=== PATIENT | female | born 1990 | race Caucasian/White ===

== ENCOUNTER 2018-04-16 20:42 | Emergency (ER) | payer MEDICAID, SELFPAY ==
[2018-04-16 20:45] VITALS: BP 109/54; PULSE 87; RESP 20; TEMP 36.7; O2SAT 100
--- NOTE | 2018-04-16 20:52 | DI.REPORT_ITS ---
SYMPTOM/DIAGNOSIS: PAIN RIGHT FOOT: No bony or joint abnormality is seen.
--- NOTE | 2018-04-16 21:02 | ED.GENADUL ---
Disposition Clinical Impression: Swelling of right foot Disposition: HOME Condition: Good Additional Instructions: Please follow-up with physical therapy as prescribed. Wear postop shoe for 7-10 days time. Elevate that she would the end of the day to reduce pain and swelling. I apply ice at the end of the day to reduce discomfort as well. Return if you develop a rash, redness, fever, or any other acute concerns Forms: Physical Therapy Referral, Work Release Medical Decision Making - Radiology Data Radiology results: image reviewed - Medical Decision Making 28-year-old female with right medial arch foot pain and swelling over days time. She is afebrile, well-appearing, in otherwise no acute distress. Referred for x-ray which does not reveal acute bony injury on my exam, formal read is pending. We will place in a postop shoe and follow-up with physical therapy for mobilization and stretching. History of Present Illness - General Chief complaint: Cellulitis Stated complaint: RT FOOT INJURY Time Seen by Provider: 04/16/18 20:49 Source: patient, RN notes reviewed Mode of arrival: ambulatory Limitations: no limitations - History of Present Illness Initial comments: Right foot pain: 28-year-old female with gradual onset over days time of achy, moderate, medial right foot pain is nonradiating. It is worse at the end of the day and associated with swelling. There has been no erythema and no fever. No blisters. She denies traumatic injury but states it began after moving her domicile over 2 days time last weekend. - Related Data Venlafaxine [Effexor] 37.5 mg PO DAILY 04/16/18 Allergies Allergy/AdvReac Type Severity Reaction Status Date / Time bupropion HCl Allergy Intermediate Hives Unverified 04/16/18 20:47 [From Wellbutrin] Review of Systems Other: 6 systems reviewed, otherwise neg General Exam - General Limitations: no limitations General appearance: alert, in no apparent distress - Neck Neck exam: Present: normal inspection, full ROM - Respiratory Respiratory exam: Absent: chest wall tenderness - Extremities Exam Extremities exam: Present: tenderness, normal capillary refill, other (Right foot medial arch has mild swelling and tenderness. There is no vesicles. There is no erythema. Range of motion is intact. Sensation intact throughout. 2+ DP bilaterally per) - Neurological Exam Neurological exam: Present: alert, oriented X3 - Psychiatric Psychiatric exam: Present: normal affect, normal mood - Skin Skin exam: Present: warm, dry, intact Course Vital Signs - 24 hr 04/16/18 20:45 Temperature 36.7 C Pulse 87 Respiratory 20 Rate Blood Pressure 109/54 Pulse Oximetry 100
== END 2018-04-16 21:58 | disposition home or self-care (01) ==
PROVIDERS: Emergency Provider Emergency Medicine; PCP Physician Assistant Medical
DX: M79.89 Other specified soft tissue disorders (principal); M79.671 Pain in right foot
CPT/HCPCS: 99283; 73630; L4361

== ENCOUNTER 2018-07-07 21:29 | Emergency (ER) | payer MEDICAID, SELFPAY ==
[2018-07-07 21:34] VITALS: BP 123/85; PULSE 88; RESP 20; TEMP 36.8; O2SAT 100
--- NOTE | 2018-07-07 22:09 | W.ED.GENAD ---
Discharge Plan Disposition Patient Disposition: HOME Condition: Improving Discharge Details Chief Complaint: AUTO TECHNICIAN MECHANIC Clinical Impression: First trimester bleeding Primary Care Provider: Yuan Delgado ED Provider: Miguel Gonzalez Home Meds and New Rx's Prescriptions: Continue venlafaxine 75 MG tablet 37.5 mg PO DAILY RF: 0 progesterone [Progesterone in Oil] 50 mg/mL Oil 1 ml IM HS RF: 0 estradiol 2 mg Tablet 2 mg PO DAILY RF: 0 PNV cmb#95-ferrous fumarate-FA [] 28 mg iron- 800 mcg Tablet 1 tab PO DAILY RF: 0 Discharge Instructions Instructions: First Trimester Vaginal Bleed (ED) Additional Instructions: We have ordered a vaginal ultrasound for tomorrow morning. The ultrasound department will call you to schedule the timing in the morning. Return if you develop abrupt change to abdominal pain or increased vaginal bleeding. Otherwise, return for vaginal ultrasound tomorrow and then follow-up in the emergency department for results Medical Decision Making 28-year-old female presents from home. She is 8 weeks followed by an IVF specialist in [place]. She has had one episode of light vaginal spotting today. She has not had any cramping or abdominal pain. She states she had a confirmed IUP with ultrasound last week. On speculum exam she has a scant amount of blood in the posterior vaginal vault. Patient referred for laboratory testing. Her blood type is A+, hematocrit is 35, chemistries are unremarkable. A bedside transabdominal ultrasound did not offer adequate resolution to visualize the patient's uterus. Unable to obtain a trans-vaginal ultrasound this evening. Patient is stable return in the morning for transvaginal ultrasound to assess for viability. Lab Data Lab results reviewed: Yes I reviewed the patient's lab results. Laboratory Results - last 24 hr 07/07/18 07/07/18 07/07/18 22:22 22:22 22:22 WBC 10.46 RBC 3.84 L Hgb 12.1 Hct 35.8 L MCV 93.2 MCH 31.5 MCHC 33.8 RDW 12.6 Plt Count 280 MPV 10.2 Immature Gran % 0.2 Neutrophils % 57.5 Lymphocytes % 27.7 Monocytes % 7.4 Eosinophils % 6.6 Basophils % 0.6 Absolute Neutrophils 6.02 Absolute Lymphocytes 2.90 Absolute Monocytes 0.77 H Absolute Eosinophils 0.69 Absolute Basophils 0.06 Sodium 137 Potassium 3.8 Chloride 101 Carbon Dioxide 26.0 Anion Gap 10.0 BUN 11 Creatinine 0.55 Estimated GFR/1.73 m2 >= 60.00 Glucose 93 Calcium 9.0 Patient ABO/Rh A Positive Antibody Screen Negative HPI General Mode of arrival: ambulatory. Date/Time Provider Initiated Documentation: 07/07/18 21:40. Limitations to Documentation: no limitations. History of Present Illness 28 year old F presents to the emergency department with the chief complaint of First trimester vaginal bleeding at 8wks, described as mild, and is localized to the pelvis. Patient reports no radiation. Patient started experiencing this hour(s) and it has been now resolved. No relieving factors improve symptom(s), No exacerbating factors reported . Patient notes no other symptoms.. 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 Pleasant, well groomed, interactive. HEAD: Normocephalic, atraumatic ENT: Mucous membranes moist, oropharynx unremarkable, External ear exam unremarkable EYES: PERRL, EOMI NECK: Full ROM, no CRISTINA, no menigismus CHEST/RESP: Nontender, clear to auscultation bilateral, no wheeze/rhonchi/rales CARDIOVASCULAR: RRR, no murmur, rub lety. 2+ Rad pulse bilateral ABDOMEN: Gravid, soft, nontender, no mass. +Bowel sounds GALLERY DIRECTOR: small amount dark blood posterior vaginal vault, Os fingertip, nontender. EXT: Full ROM, no edema, no rash Neuro: Grossly normal neurologic exam, conversant, interactive. Psych: Speech fluent, thoughts congruent, affect normal Course Vital Signs Temperature 36.8 C 07/07/18 21:34 Pulse 88 07/07/18 21:34 Respiratory Rate 20 07/07/18 21:34 Blood Pressure 123/85 07/07/18 21:34 Pulse Oximetry 100 07/07/18 21:34 Temperature 36.8 C 07/07/18 21:34 Temperature Source Temporal Artery Scan 07/07/18 21:34 Pulse 88 07/07/18 21:34 Respiratory Rate 20 07/07/18 21:34 Respiratory Effort Non-Labored 07/07/18 21:34 Blood Pressure 123/85 07/07/18 21:34 Pulse Oximetry 100 07/07/18 21:34 Oxygen Delivery Method Room Air 07/07/18 21:34 Oxygen Flow Rate 0 07/07/18 21:34 Pain Level 0 07/07/18 21:38
--- NOTE | 2018-07-07 22:12 | ED.GENADUL_ITS ---
Discharge Plan Disposition Patient Disposition: HOME Condition: Improving Discharge Details Chief Complaint: PROFESSIONAL SERVICES CONSULTANT Clinical Impression: First trimester bleeding Primary Care Provider: Yuan Delgado ED Provider: Miguel Gonzalez Home Meds and New Rx's Prescriptions: Continue venlafaxine 75 MG tablet 37.5 mg PO DAILY RF: 0 progesterone [Progesterone in Oil] 50 mg/mL Oil 1 ml IM HS RF: 0 estradiol 2 mg Tablet 2 mg PO DAILY RF: 0 PNV cmb#95-ferrous fumarate-FA [] 28 mg iron- 800 mcg Tablet 1 tab PO DAILY RF: 0 Discharge Instructions Instructions: First Trimester Vaginal Bleed (ED) Additional Instructions: We have ordered a vaginal ultrasound for tomorrow morning. The ultrasound department will call you to schedule the timing in the morning. Return if you develop abrupt change to abdominal pain or increased vaginal bleeding. Otherwise, return for vaginal ultrasound tomorrow and then follow-up in the emergency department for results Medical Decision Making 28-year-old female presents from home. She is 8 weeks followed by an IVF specialist in [place]. She has had one episode of light vaginal spotting today. She has not had any cramping or abdominal pain. She states she had a confirmed IUP with ultrasound last week. On speculum exam she has a scant amount of blood in the posterior vaginal vault. Patient referred for laboratory testing. Her blood type is A+, hematocrit is 35 , chemistries are unremarkable. A bedside transabdominal ultrasound did not offer adequate resolution to visualize the patient's uterus. Unable to obtain a trans-vaginal ultrasound this evening. Patient is stable return in the morning for transvaginal ultrasound to assess for viability. Lab Data Lab results reviewed: Yes I reviewed the patient's lab results. Laboratory Results - last 24 hr 07/07/18 07/07/18 07/07/18 22:22 22:22 22:22 WBC 10.46 RBC 3.84 L Hgb 12.1 Hct 35.8 L MCV 93.2 MCH 31.5 MCHC 33.8 RDW 12.6 Plt Count 280 MPV 10.2 Immature Gran % 0.2 Neutrophils % 57.5 Lymphocytes % 27.7 Monocytes % 7.4 Eosinophils % 6.6 Basophils % 0.6 Absolute Neutrophils 6.02 Absolute Lymphocytes 2.90 Absolute Monocytes 0.77 H Absolute Eosinophils 0.69 Absolute Basophils 0.06 Sodium 137 Potassium 3.8 Chloride 101 Carbon Dioxide 26.0 Anion Gap 10.0 BUN 11 Creatinine 0.55 Estimated GFR/1.73 m2 >= 60.00 Glucose 93 Calcium 9.0 Patient ABO/Rh A Positive Antibody Screen Negative HPI General Mode of arrival: ambulatory . Date/Time Provider Initiated Documentation: 07/07/18 21:40 . Limitations to Documentation: no limitations . History of Present Illness 28 year old F presents to the emergency department with the chief complaint of First trimester vaginal bleeding at 8wks, described as mild, and is localized to the pelvis. Patient reports no radiation. Patient started experiencing this hour(s) and it has been now resolved. No relieving factors improve symptom(s), No exacerbating factors reported . Patient notes no other symptoms.. 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 Pleasant, well groomed, interactive. HEAD: Normocephalic, atraumatic ENT: Mucous membranes moist, oropharynx unremarkable, External ear exam unremarkable EYES: PERRL, EOMI NECK: Full ROM, no CRISTINA, no menigismus CHEST/RESP: Nontender, clear to auscultation bilateral, no wheeze/rhonchi/rales CARDIOVASCULAR: RRR, no murmur, rub lety. 2+ Rad pulse bilateral ABDOMEN: Gravid, soft, nontender, no mass. +Bowel sounds NEUROPHYSIOLOGY TECH: small amount dark blood posterior vaginal vault, Os fingertip, nontender. EXT: Full ROM, no edema, no rash Neuro: Grossly normal neurologic exam, conversant, interactive. Psych: Speech fluent, thoughts congruent, affect normal Course Vital Signs Temperature 36.8 C 07/07/18 21:34 Pulse 88 07/07/18 21:34 Respiratory Rate 20 07/07/18 21:34 Blood Pressure 123/85 07/07/18 21:34 Pulse Oximetry 100 07/07/18 21:34 Temperature 36.8 C 07/07/18 21:34 Temperature Source Temporal Artery Scan 07/07/18 21:34 Pulse 88 07/07/18 21:34 Respiratory Rate 20 07/07/18 21:34 Respiratory Effort Non-Labored 07/07/18 21:34 Blood Pressure 123/85 07/07/18 21:34 Pulse Oximetry 100 07/07/18 21:34 Oxygen Delivery Method Room Air 07/07/18 21:34 Oxygen Flow Rate 0 07/07/18 21:34 Pain Level 0 07/07/18 21:38
[2018-07-07 22:34] LABS: Abs Immature Grans 0.02 k/cumm (0.0-0.09); Absolute Basophil Count 0.06 k/cumm (0.0-0.2); Absolute Eosinophil Count 0.69 k/cumm (0.0-0.7); Absolute Monocyte Count 0.77 k/cumm (0.11-0.7); Absolute Neutrophil Count 6.02 k/cumm (1.2-6.7); Basophils % 0.6; Eosinophils % 6.6; HCT 35.8 % (36.0-46.0); HGB 12.1 g/dL (12.0-15.5); Immature Grans % 0.2; Lymphocytes % 27.7; Mean Corp. HGB Concentration 33.8 g/dL (32.0-36.0); Mean Corpuscular Hemoglobin 31.5 pg (27.0-33.0); Mean Corpuscular Volume 93.2 fL (80-95); Mean Platelet Volume 10.2 fL (8.0-11.0); Monocytes % 7.4; Neutrophils % 57.5; Platelet Count 280 x1000/uL (130-400); RBC 3.84 m/cumm (4.00-5.20); RBC Distribution Width 12.6 % (11.7-14.6); White Blood Cell Count 10.46 k/cumm (4.4-10.8)
[2018-07-07 22:45] LABS: BUN 11 mg/dL (7-18); CREATININE 0.55 mg/dL (0.55-1.02); Chloride 101 mmol/L (98-107); Glucose 93 mg/dL (70-100); Potassium 3.8 mmol/L (3.5-5.1); Sodium 137 mmol/L (136-145)
--- NOTE | 2018-07-07 23:04 | NUR.NOTE ---
Nursing Note: This scribe assisted MD with pelvic exam, which went routine.
[2018-07-07 23:57] VITALS: BP 123/85; PULSE 88; RESP 20; TEMP 36.8; O2SAT 100
== END 2018-07-07 23:55 | disposition home or self-care (01) ==
PROVIDERS: Emergency Provider Emergency Medicine; PCP Physician Assistant Medical
DX: O26.851 Spotting complicating pregnancy, first trimester (principal); Z3A.08 8 weeks gestation of pregnancy
CPT/HCPCS: 36415; 80048; 86850; 86900; 86901; 99284; 84702; 85025

== ENCOUNTER 2018-07-08 13:30 | Outpatient (CLI) | payer MEDICAID, SELFPAY ==
--- NOTE | 2018-07-08 11:33 | DI.US_ITS ---
Many abnormalities cannot be diagnosed. A normal exam does not exclude a congenital anomaly. Radiology No. LMP: Exam Date: 07/08/18 [facility] wks days on EDC ([facility]) Confirmed: HISTORY: BLEEDING FIRST TRIMESTER ---- PREDICTED GESTATIONAL AGE NUMBER 7.4 weeks with a range of 6.4 week to 8.4 weeks. 1 Determined by_X__1STUS___LMP___HISTORY Info. pertaining to fetus # PLACENTA PRESENTATION Grade Cephalic___ Anterior___Posterior___ Breech____ Right Left Transverse(head right___ Fundal___Low-lying___Previa___ Transverse(head left___ Varying BIOMETRY AMNIOTIC FLUID BPD: mm weeks Normal HC: mm weeks AC: mm weeks FL: mm weeks AMNIOTIC FLUID INDEX >26 WK CRL: 15 mm 7.6 weeks Cisterna Magna: mm CI: RUQ: LUQ Cerebellum: cm EFW: grams Percentile RLQ: LLQ Total: cms Composite AGE= 7.6 wks EDC by US___02/18/19 BIOPHYSICAL PROFILE ANATOMY IDENTIFIED SCORE 0/2 Heart: 4-Chamber___Rate:BPM__160___ LVOT: RVOT: Amniotic Fluid(>2cms)____ Stomach: Kidneys: Respirations (>30 secs) Bladder: Post. Fossa: Body Flex/Extension 3 vessel cord: Ventricles: cord insertion: Lips:____ Extremity Flex/Extension spinal morphology: Nose: Total Score= Palate: NS=not seen Routine examination. No priors for comparison. There is a single living intrauterine gestation. Estimated sonographic age is 7 weeks 6 days. heart rate is 160 beats per minute. The yoke sac was visualized. There is a 1.6 by 1.5 by 0.6 cm., hypoechoic area adjacent to the gestational sac, most suggestive of a subchorionic hemorrhage. There is a small amount of fluid in the cul-de-sac. Both ovaries were visualized and are grossly unremarkable with normal blood flow. IMPRESSION: 1. Single living intrauterine gestation. Estimated sonographic age is 7 weeks 6 days. 2. Small, 1.6 cm. by 1.5 by 0.6 cm. hypoechoic region adjacent to the gestational sac, most suggestive of a small subchorionic hemorrhage. The findings were discussed with the ER on the date of the examination.
== END 2018-07-08 13:50 ==
PROVIDERS: PCP Physician Assistant Medical; Visit Provider Emergency Medicine
DX: O20.8 Other hemorrhage in early pregnancy (principal)
CPT/HCPCS: 76817

== ENCOUNTER 2018-07-30 10:24 | Outpatient (REF) | payer MEDICAID, SELFPAY ==
[2018-08-02 14:49] LABS: Chlamydia Result Negative; GC Result Negative; Specimen Description CERVIX
== END 2018-07-30 10:44 ==
LOC: LBN 10:24
PROVIDERS: PCP Physician Assistant Medical; Visit Provider Advanced Practice Midwife
DX: Z34.91 Encounter for supervision of normal pregnancy, unspecified, first trimester (principal); Z11.3 Encounter for screening for infections with a predominantly sexual mode of transmission
CPT/HCPCS: 87491; 87591

== ENCOUNTER 2018-07-30 16:31 | Outpatient (REF) | payer MEDICAID, SELFPAY ==
--- NOTE | 2018-07-30 15:45 | PAPFT_PTH ---
PATIENT: Yana Cleaning LOC: BEV U#:[id number] AGE/SX: 28/F ROOM: RE07/30/[address]: Addison Ramirez RN : 1990 BED: DIS: 07/30/2018 SPEC #: [id number] RECD: 07/30/18 18:04 STATUS: WILLIAM RESebastián #: [id number] SARAH: 07/30/18 15:[address]: Addison Ramirez DEPT: [facility] Cytology RECD BY: Jennifer Mmcillan ENTERED: 07/30/18 18:04 SP TYPE: PAPFT OTHR DR: Yuan Delgado Tissues: 1 - CX/ENDOCX FOR PAP SMEARS Procedures: PAP THIN PREP/UVM Screening HPV DNA PROBE Comments:
[2018-07-30 18:35] LABS: *AMPHETAMINES SCREEN URINE Negative (Negative); *BARBITURATES SCREEN URINE Negative (Negative); *BENZODIAZEPINES SCREEN URINE Negative (Negative); Cannabinoids THC Negative (Negative); Cocaine Screen,Urine Negative (Negative); METHADONE URINE SCREEN Negative (Negative); OPIATES URINE SCREEN Negative (Negative)
[2018-07-30 18:37] LABS: Tricyclic Antidepressants Negative (Negative)
[2018-08-06 15:04] LABS: Buprenorphine Negative; Norbuprenorphine Negative
== END 2018-07-30 16:51 ==
LOC: LBN 16:31
PROVIDERS: PCP Physician Assistant Medical; Visit Provider Advanced Practice Midwife
DX: Z12.4 Encounter for screening for malignant neoplasm of cervix (principal); Z11.51 Encounter for screening for human papillomavirus (HPV); Z34.91 Encounter for supervision of normal pregnancy, unspecified, first trimester
CPT/HCPCS: 80307; 88142; 87086; 87624

== ENCOUNTER 2018-08-14 12:36 | Emergency (ER) | payer MEDICAID, SELFPAY ==
[2018-08-14 12:40] VITALS: BP 129/70; PULSE 114; RESP 16; TEMP 36.8; O2SAT 98
--- NOTE | 2018-08-14 13:40 | W.ED.GENAD ---
Discharge Plan Disposition Patient Disposition: HOME Condition: Stable Discharge Details Chief Complaint: Sorethroat Clinical Impression: URI (upper respiratory infection) Reason For Visit: ? strep Primary Care Provider: Yuan Delgado ED Provider: Malcolm Reaves Home Meds and New Rx's Prescriptions: Continue PNV cmb#95-ferrous fumarate-FA [] 28 mg iron- 800 mcg Tablet 1 tab PO DAILY RF: 0 Discontinued venlafaxine 75 MG tablet 37.5 mg PO DAILY RF: 0 Discharge Instructions Instructions: Upper Respiratory Infection (ED) Additional Instructions: Continue to stay well-hydrated and get plenty of rest during illness. You may use approved cold relief medications and if not improving over the next week follow-up with your primary care provider for reassessment. For any new or significant worsening of symptoms including any difficulty breathing, inability to swallow, high fevers or severe pain return immediately to the emergency department for reassessment. Referrals: Yuan Delagdo PA [Primary Care Provider] - Discharge Data Discharge Date/Time-TO BE ENTERED AT DEPARTURE: 08/14/18 13:47 Medical Decision Making Patient presenting to the emergency department after chief complaint of sore throat that started the last couple days but that she has had nasal congestion, runny nose, and mild cough for the past week. Patient denies any fever chills, inability to swallow, rash. Physical exam shows no difficulty speaking, no drooling, no trismus, mildly erythematous bilateral tonsils with mild hypertrophy and nasal congestion otherwise unremarkable examination. staff internist office based only initiated protocol for rapid strep testing which was negative. Patient symptoms are suggestive of viral illness and she was encouraged to safe, such acetaminophen, [id number] therapy for treatment and to follow-up with primary care provider as needed for reassessment or to return for any new or worsening symptoms. After discussion of diagnosis and plan of care patient has no further needs, questions, or concerns and states clear understanding to return to the emergency department for any worsening symptoms. HPI General Mode of arrival: ambulatory. Date/Time Provider Initiated Documentation: 08/14/18 12:42. Limitations to Documentation: no limitations. Information obtained by: patient and RN notes reviewed. History of Present Illness 28 year old F presents to the emergency department with the chief complaint of Sore throat, described as moderate, with intensity rated at 6. Quality is described as aching, and is localized to the mouth (Sort throat). Patient reports no radiation. Patient started experiencing this day(s) (2) and it has been constant. No relieving factors improve symptom(s), No exacerbating factors reported . Patient notes cough. Patient did receive the following treatments prior to arrival, none Related Data Home Medications Medication Instructions Recorded Confirmed PNV cmb#95-ferrous fumarate-FA 1 tab PO DAILY 07/07/18 07/30/18 [] Allergies Allergy/AdvReac Type Severity Reaction Status Date / Time bupropion HCl Allergy Intermediate Hives Unverified 07/07/18 21:36 [From Wellbutrin] General Stated Complaint: Sorethroat KYLAH: 4 Review of Systems Constitutional Denies chills, Denies fever(s), Denies headache(s) and Reports malaise ENT Denies dysphagia, Denies headache(s), Denies lip swelling, Reports nasal congestion, Denies throat swelling and Denies tongue swelling Cardiovascular Denies chest pain Respiratory Denies chest congestion and Reports cough Gastrointestinal Denies dysphagia Neurologic Denies headache(s) Allergic/Immunologic Denies lip swelling, Denies throat swelling and Denies tongue swelling PFSH Anxiety Family History Grandmother Diabetes Ligation of fallopian tube (06/07/16) excision of keloid on chest Family History Grandmother Diabetes Medical History Anxiety Social History Smoking/Tobacco Use Status: Never alcohol intake: former (stopped in march only.) substance use type: does not use Surgical History Ligation of fallopian tube (06/07/16) excision of keloid on chest Social History Smoking/Tobacco Use Status: Never alcohol intake: former (stopped in march only.) substance use type: does not use Female Reproductive History Menstrual Age of Menarche: 11 Duration of menses: 3-5 days control method: permanent sterilization (ivf for this .) Exam Const General: cooperative, healthy appearing, comfortable, no acute distress and not ill appearing Orientation: alert, awake and oriented x3 HENMT Head: normal to inspection and normocephalic Ears: hearing grossly normal bilaterally, external ears normal, TM's normal bilaterally and mastoids normal General nose exam: external nose normal and nares normal Face and sinus: normal facial exam and sinuses nontender Mouth: oral mucosae normal, lip normal, tongue normal, no audible dysphonia, no drooling and no trismus Throat: uvula midline, abnormal tonsil bilaterally erythema and hypertrophy 1+ and no peritonsillar masses Neck Neck: normal visual inspection, full ROM and no lymphadenopathy Resp Effort & Inspection: normal respiratory effort, able to speak in complete sentences and no stridor Auscultation: clear to auscultation bilaterally Cardio Rate: regular rate Rhythm: regular rhythm Heart Sounds: S1 normal and S2 normal Skin General skin exam: no rashes or lesions noted Course Vital Signs Temperature 36.8 C 08/14/18 12:40 Pulse 114 H 08/14/18 12:40 Respiratory Rate 16 08/14/18 12:40 Blood Pressure 129/70 08/14/18 12:40 Pulse Oximetry 98 08/14/18 12:40 Temperature 36.8 C 08/14/18 12:40 Pulse 114 H 08/14/18 12:40 Respiratory Rate 16 08/14/18 12:40 Respiratory Effort 08/14/18 12:43 Blood Pressure 129/70 08/14/18 12:40 Blood Pressure Position Sitting 08/14/18 12:40 Pulse Oximetry 98 08/14/18 12:40 Oxygen Delivery Method Room Air 08/14/18 12:40 Oxygen Flow Rate 0 08/14/18 12:40 Lab/Test Results Lab/Test Results: POC Strep Test-JAMES(Rapid) Start: 08/14/18 12:45 Freq: .Rapid Strep Test Status: Active Protocol: Document 08/14/18 13:02 MM (Rec: 08/14/18 13:02 MM [facility]-[id number]) Strep test-JAMES(Rapid)-POC POC-Strep test-JAMES (Rapid) Negative POC-Strep test-JAMES (Rapid) Negative
--- NOTE | 2018-08-14 13:45 | ED.GENADUL_ITS ---
Discharge Plan Disposition Patient Disposition: HOME Condition: Stable Discharge Details Chief Complaint: Sorethroat Clinical Impression: URI (upper respiratory infection) Reason For Visit: ? strep Primary Care Provider: Yuan Delgado ED Provider: Malcolm Reaves Home Meds and New Rx's Prescriptions: Continue PNV cmb#95-ferrous fumarate-FA [] 28 mg iron- 800 mcg Tablet 1 tab PO DAILY RF: 0 Discontinued venlafaxine 75 MG tablet 37.5 mg PO DAILY RF: 0 Discharge Instructions Instructions: Upper Respiratory Infection (ED) Additional Instructions: Continue to stay well-hydrated and get plenty of rest during illness. You may use approved cold relief medications and if not improving over the next week follow-up with your primary care provider for reassessment. For any new or significant worsening of symptoms including any difficulty breathing, inability to swallow, high fevers or severe pain return immediately to the emergency department for reassessment. Referrals: Yuan Delgado PA [Primary Care Provider] - Discharge Data Discharge Date/Time-TO BE ENTERED AT DEPARTURE: 08/14/18 13:47 Medical Decision Making Patient presenting to the emergency department after chief complaint of sore throat that started the last couple days but that she has had nasal congestion, runny nose, and mild cough for the past week. Patient denies any fever chills, inability to swallow, rash. Physical exam shows no difficulty speaking, no drooling, no trismus, mildly erythematous bilateral tonsils with mild hypertrophy and nasal congestion otherwise unremarkable examination. staff appraiser initiated protocol for rapid strep testing which was negative. Patient symptoms are suggestive of viral illness and she was encouraged to safe, such acetaminophen, [id number] therapy for treatment and to follow- up with primary care provider as needed for reassessment or to return for any new or worsening symptoms. After discussion of diagnosis and plan of care patient has no further needs, questions, or concerns and states clear understanding to return to the emergency department for any worsening symptoms. HPI General Mode of arrival: ambulatory . Date/Time Provider Initiated Documentation: 08/14/18 12:42 . Limitations to Documentation: no limitations . Information obtained by: patient and RN notes reviewed . History of Present Illness 28 year old F presents to the emergency department with the chief complaint of Sore throat, described as moderate, with intensity rated at 6. Quality is described as aching, and is localized to the mouth (Sort throat). Patient reports no radiation. Patient started experiencing this day(s) (2) and it has been constant. No relieving factors improve symptom(s), No exacerbating factors reported . Patient notes cough. Patient did receive the following treatments prior to arrival, none Related Data Home Medications Medication Instructions Recorded Confirmed PNV cmb#95-ferrous fumarate-FA 1 tab PO DAILY 07/07/18 07/30/18 [] Allergies Allergy/AdvReac Type Severity Reaction Status Date / Time bupropion HCl Allergy Intermediate Hives Unverified 07/07/18 21:36 [From Wellbutrin] General Stated Complaint: Sorethroat KYLAH: 4 Review of Systems Constitutional Denies chills, Denies fever(s), Denies headache(s) and Reports malaise ENT Denies dysphagia, Denies headache(s), Denies lip swelling, Reports nasal congestion, Denies throat swelling and Denies tongue swelling Cardiovascular Denies chest pain Respiratory Denies chest congestion and Reports cough Gastrointestinal Denies dysphagia Neurologic Denies headache(s) Allergic/Immunologic Denies lip swelling, Denies throat swelling and Denies tongue swelling PFSH Anxiety Family History Grandmother Diabetes Ligation of fallopian tube (06/07/16) excision of keloid on chest Family History Grandmother Diabetes Medical History Anxiety Social History Smoking/Tobacco Use Status: Never alcohol intake: former (stopped in march only.) substance use type: does not use Surgical History Ligation of fallopian tube (06/07/16) excision of keloid on chest Social History Smoking/Tobacco Use Status: Never alcohol intake: former (stopped in march only.) substance use type: does not use Female Reproductive History Menstrual Age of Menarche: 11 Duration of menses: 3-5 days control method: permanent sterilization (ivf for this .) Exam Const General: cooperative, healthy appearing, comfortable, no acute distress and not ill appearing Orientation: alert, awake and oriented x3 HENMT Head: normal to inspection and normocephalic Ears: hearing grossly normal bilaterally, external ears normal, TM's normal bilaterally and mastoids normal General nose exam: external nose normal and nares normal Face and sinus: normal facial exam and sinuses nontender Mouth: oral mucosae normal, lip normal, tongue normal, no audible dysphonia, no drooling and no trismus Throat: uvula midline, abnormal tonsil bilaterally erythema and hypertrophy 1+ and no peritonsillar masses Neck Neck: normal visual inspection, full ROM and no lymphadenopathy Resp Effort & Inspection: normal respiratory effort, able to speak in complete sentences and no stridor Auscultation: clear to auscultation bilaterally Cardio Rate: regular rate Rhythm: regular rhythm Heart Sounds: S1 normal and S2 normal Skin General skin exam: no rashes or lesions noted Course Vital Signs Temperature 36.8 C 08/14/18 12:40 Pulse 114 H 08/14/18 12:40 Respiratory Rate 16 08/14/18 12:40 Blood Pressure 129/70 08/14/18 12:40 Pulse Oximetry 98 08/14/18 12:40 Temperature 36.8 C 08/14/18 12:40 Pulse 114 H 08/14/18 12:40 Respiratory Rate 16 08/14/18 12:40 Respiratory Effort 08/14/18 12:43 Blood Pressure 129/70 08/14/18 12:40 Blood Pressure Position Sitting 08/14/18 12:40 Pulse Oximetry 98 08/14/18 12:40 Oxygen Delivery Method Room Air 08/14/18 12:40 Oxygen Flow Rate 0 08/14/18 12:40 Lab/Test Results Lab/Test Results: POC Strep Test-JAMES(Rapid) Start: 08/14/18 12: 45 Freq: .Rapid Strep Test Status: Active Protocol: Document 08/14/18 13:02 MM (Rec: 08/14/18 13:02 MM [facility]-[id number]) Strep test-JAMES(Rapid)-POC POC-Strep test-JAMES (Rapid) Negative POC-Strep test-JAMES (Rapid) Negative
== END 2018-08-14 13:47 | disposition home or self-care (01) ==
LOC: ER 13:57
PROVIDERS: Emergency Provider Nurse Practitioner Family; PCP Physician Assistant Medical
DX: J06.9 Acute upper respiratory infection, unspecified (principal); Z33.1 Pregnant state, incidental; Z3A.13 13 weeks gestation of pregnancy
CPT/HCPCS: 99282; 87081

== ENCOUNTER 2018-08-27 08:13 | Outpatient (CLI) | payer MEDICAID, SELFPAY ==
[2018-08-27 09:16] LABS: Glucose,1 Hr (Glucola) 112 mg/dL (80-140)
== END 2018-08-27 08:33 ==
PROVIDERS: Advanced Practice Midwife; PCP Physician Assistant Medical; Visit Provider Advanced Practice Midwife
DX: Z13.1 Encounter for screening for diabetes mellitus (principal); Z68.30 Body mass index [BMI] 30.0-30.9, adult
CPT/HCPCS: 36415; 82950

== ENCOUNTER 2018-08-27 18:35 | Emergency (ER) | payer MEDICAID, SELFPAY ==
[2018-08-27 18:41] VITALS: BP 130/76; PULSE 127; RESP 18; TEMP 36.7; O2SAT 99
--- NOTE | 2018-08-27 18:55 | W.ED.GENAD ---
Discharge Plan Disposition Patient Disposition: HOME Condition: Stable Discharge Details Chief Complaint: SUPERVISOR CHEMICAL Clinical Impression: Vaginal bleeding during Primary Care Provider: Yuan Delgado ED Provider: David Tan Home Meds and New Rx's Prescriptions: Continued PNV cmb#95-ferrous fumarate-FA [] 28 mg iron- 800 mcg Tablet 1 tab PO DAILY RF: 0 Discharge Instructions Additional Instructions: You had a live intrauterine on your ultrasound today You should be on pelvic rest and try not to overly exert yourself follow up with your community health director as scheduled tomorrow if you have difficulty breathing, severe weakness or chest pain/pressure or worsening abdominal pain return to the emergency department Medical Decision Making 28 yo female currently 15 weeks comes in with chief complaint of vaginal bleeding and lower abdominal cramping that started tonight. Denies any severe pain, fevers, discharge. Is a positive on lab review. Has live IUP on bedside u/s with fhr of 140 and fetus is moving. HD stable, HR 103 on my exam. Will discuss with her midwifery team when they would like her to f/u with them, suspect threatened pt states she has an appt scheduled already tomorrow. I spoke with Charla Estrada, who is on for the midwifes who advised the pt be on pelvic rest and f/u as scheduled tomorrow Differential Diagnosis implantation bleeding, threatened HPI General Mode of arrival: ambulatory. Date/Time Provider Initiated Documentation: 08/27/18 18:46. Limitations to Documentation: no limitations. Information obtained by: patient. History of Present Illness 28 year old F presents to the emergency department with the chief complaint of vaginal bleeding, described as mild, Patient reports no radiation. No relieving factors improve symptom(s), No exacerbating factors reported . Patient did receive the following treatments prior to arrival, none Related Data Home Medications Medication Instructions Recorded Confirmed PNV cmb#95-ferrous fumarate-FA 1 tab PO DAILY 07/07/18 08/27/18 [] Allergies Allergy/AdvReac Type Severity Reaction Status Date / Time bupropion HCl Allergy Intermediate Hives Unverified 08/27/18 18:44 [From Wellbutrin] General Stated Complaint: SUPERVISOR CHEMICAL KYLAH: 3 Review of Systems Review of Systems All systems reviewed & are unremarkable except as noted in HPI and below Constitutional Denies chills, Denies fever(s) and Denies weakness Cardiovascular Denies chest pain Gastrointestinal Denies abdominal pain, Denies nausea and Denies vomiting Neurologic Denies weakness Allergic/Immunologic Denies urticaria PFSH Medical History Anxiety Surgical History Ligation of fallopian tube (06/07/16) excision of keloid on chest Social History Smoking/Tobacco Use Status: Never alcohol intake: former (stopped in march only.) substance use type: does not use Female Reproductive History Menstrual Age of Menarche: 11 Duration of menses: 3-5 days control method: permanent sterilization (ivf for this .) History History 5 Para 3 Hx # Term Pregnancies 3 Multiple births 0 Hx # Pregnancies 0 Ectopic pregnancies 0 AB induced 0 Hx Number of Living Children 3 AB spontaneous 1 Exam Const General: no acute distress Orientation: alert HENNH Head: normal to inspection Ears: external ears normal General nose exam: external nose normal Mouth: moist mucous membranes Eyes General: appearance normal, both eyes and all related structures Neck Neck: normal visual inspection Resp Effort & Inspection: normal respiratory effort and able to speak in complete sentences Cardio Rate: regular rate Skin General skin exam: no rashes or lesions noted Neuro General: alert and oriented x3 Extrem General: normal to inspection Psych Mental Status: mental status grossly normal Course Vital Signs Temperature 36.7 C 08/27/18 18:41 Pulse 127 H 18 18:41 Respiratory Rate 18 18 18:41 Blood Pressure 130/76 1818 18:41 Pulse Oximetry 99 18 18:41 Temperature 36.7 C 18 18:41 Temperature Source Skin 1818 18:41 Pulse 127 H 1818 18:41 Respiratory Rate 18 18 18:41 Respiratory Effort 1818 18:44 Blood Pressure 130/76 1818 18:41 Blood Pressure Position Sitting 121818 18:41 Pulse Oximetry 99 1818 18:41 Oxygen Delivery Method Room Air 08/27/18 18:41 Oxygen Flow Rate 0 12/18/18 18:41 Pain Level 3 08/27/18 18:41
--- NOTE | 2018-08-27 18:59 | ED.GENADUL_ITS ---
Discharge Plan Disposition Patient Disposition: HOME Condition: Stable Discharge Details Chief Complaint: GROCERY SPECIALIST Clinical Impression: Vaginal bleeding during Primary Care Provider: Yuan Delgado ED Provider: David Tan Home Meds and New Rx's Prescriptions: Continued PNV cmb#95-ferrous fumarate-FA [] 28 mg iron- 800 mcg Tablet 1 tab PO DAILY RF: 0 Discharge Instructions Additional Instructions: You had a live intrauterine on your ultrasound today You should be on pelvic rest and try not to overly exert yourself follow up with your grocery bagger as scheduled tomorrow if you have difficulty breathing, severe weakness or chest pain/pressure or worsening abdominal pain return to the emergency department Medical Decision Making 28 yo female currently 15 weeks comes in with chief complaint of vaginal bleeding and lower abdominal cramping that started tonight. Denies any severe pain, fevers, discharge. Is a positive on lab review. Has live IUP on bedside u/s with fhr of 140 and fetus is moving. HD stable, HR 103 on my exam. Will discuss with her midwifery team when they would like her to f/u with them, suspect threatened pt states she has an appt scheduled already tomorrow. I spoke with Charla Estrada, who is on for the midwifes who advised the pt be on pelvic rest and f/u as scheduled tomorrow Differential Diagnosis implantation bleeding, threatened HPI General Mode of arrival: ambulatory . Date/Time Provider Initiated Documentation: 08/27/18 18:46 . Limitations to Documentation: no limitations . Information obtained by: patient . History of Present Illness 28 year old F presents to the emergency department with the chief complaint of vaginal bleeding, described as mild, Patient reports no radiation. No relieving factors improve symptom(s), No exacerbating factors reported . Patient did receive the following treatments prior to arrival, none Related Data Home Medications Medication Instructions Recorded Confirmed PNV cmb#95-ferrous fumarate-FA 1 tab PO DAILY 07/07/18 08/27/18 [] Allergies Allergy/AdvReac Type Severity Reaction Status Date / Time bupropion HCl Allergy Intermediate Hives Unverified 08/27/18 18:44 [From Wellbutrin] General Stated Complaint: GROCERY SPECIALIST KYLAH: 3 Review of Systems Review of Systems All systems reviewed & are unremarkable except as noted in HPI and below Constitutional Denies chills, Denies fever(s) and Denies weakness Cardiovascular Denies chest pain Gastrointestinal Denies abdominal pain, Denies nausea and Denies vomiting Neurologic Denies weakness Allergic/Immunologic Denies urticaria PFSH Medical History Anxiety Surgical History Ligation of fallopian tube (06/07/16) excision of keloid on chest Social History Smoking/Tobacco Use Status: Never alcohol intake: former (stopped in march only.) substance use type: does not use Female Reproductive History Menstrual Age of Menarche: 11 Duration of menses: 3-5 days control method: permanent sterilization (ivf for this .) History History 5 Para 3 Hx # Term Pregnancies 3 Multiple births 0 Hx # Pregnancies 0 Ectopic pregnancies 0 AB induced 0 Hx Number of Living Children 3 AB spontaneous 1 Exam Const General: no acute distress Orientation: alert HENOH Head: normal to inspection Ears: external ears normal General nose exam: external nose normal Mouth: moist mucous membranes Eyes General: appearance normal, both eyes and all related structures Neck Neck: normal visual inspection Resp Effort & Inspection: normal respiratory effort and able to speak in complete sentences Cardio Rate: regular rate Skin General skin exam: no rashes or lesions noted Neuro General: alert and oriented x3 Extrem General: normal to inspection Psych Mental Status: mental status grossly normal Course Vital Signs Temperature 36.7 C 08/27/18 18:41 Pulse 127 H 18 18:41 Respiratory Rate 18 18 18:41 Blood Pressure 130/76 1818 18:41 Pulse Oximetry 99 18 18:41 Temperature 36.7 C 18 18:41 Temperature Source Skin 1818 18:41 Pulse 127 H 1818 18:41 Respiratory Rate 18 18 18:41 Respiratory Effort 1818 18:44 Blood Pressure 130/76 1818 18:41 Blood Pressure Position Sitting 121818 18:41 Pulse Oximetry 99 1818 18:41 Oxygen Delivery Method Room Air 08/27/18 18:41 Oxygen Flow Rate 0 12/18/18 18:41 Pain Level 3 08/27/18 18:41
== END 2018-08-27 19:34 | disposition home or self-care (01) ==
PROVIDERS: Emergency Provider Emergency Medicine; PCP Physician Assistant Medical
DX: O20.9 Hemorrhage in early pregnancy, unspecified (principal); R10.9 Unspecified abdominal pain; Z3A.15 15 weeks gestation of pregnancy
CPT/HCPCS: 99282

== ENCOUNTER 2018-08-28 10:22 | Outpatient (CLI) | payer MEDICAID, SELFPAY ==
--- NOTE | 2018-08-28 08:45 | DI.US_ITS ---
SYMPTOMS/DIAGNOSIS: HEMORRHAGE IN EARLY , O20.9, ? PREVIA, ? ABRUPTION OB ULTRASOUND: Many abnormalities cannot be diagnosed. A normal exam does not exclude a congenital anomaly. Radiology No. [id number] LMP: Exam Date: 08/28/18 [facility] wks days on EDC ([facility]) 02/18/19 Confirmed: HISTORY: PREDICTED GESTATIONAL AGE NUMBER 15+1 weeks with a range of 14+1 weeks to 16+1 weeks. 1 Determined by___1STUS___LMP___HISTORY PLACENTA PRESENTATION Grade 0-I Cephalic___ Anterior___Posterior___ Breech____ Right Left Transverse(head right___ Fundal___Low-lying___Previa___ Transverse(head left___ Varying___X___ BIOMETRY AMNIOTIC FLUID BPD: 30 mm 15+4 weeks Normal HC: 113 mm 15+3 weeks AC: 92 mm 15+2 weeks FL: 17 mm 15+1 weeks AMNIOTIC FLUID INDEX >26 WK CRL: mm weeks Cisterna Magna: mm CI: RUQ: LUQ Cerebellum: cm EFW: grams Percentile RLQ: LLQ Total: cms Composite AGE= 15+3 wks EDC by US: 02/16/19 BIOPHYSICAL PROFILE ANATOMY IDENTIFIED SCORE 0/2 Heart: 4-Chamber___Rate:BPM 141 LVOT: RVOT: Amniotic Fluid(>2cms)____ Stomach: Kidneys: Respirations (>30 secs) Bladder: Post. Fossa: Body Flex/Extension 3 vessel cord: Ventricles: cord insertion: Lips:____ Extremity Flex/Extension spinal morphology: Nose: Total Score= Palate: NS=not seen COMMENTS: The examination was carried out according to the usual protocol. A viable intrauterine hoang is demonstrated in varying positions. The measurements suggest a gestational age of 15 weeks and 3 days. The amniotic fluid index is normal. An anterior placenta is apparent. There is a low-lying placenta, but no evidence of a ella previa. There is thickening and heterogeneity of the placenta with cystic and solid regions. There is nothing to suggest a retroplacental hemorrhage or placental abruption. The findings are suspicious for regions of hemorrhage. The possibility of multiple masses to be considered as well. The findings are certainly suspicious for trophoblastic disease. Further evaluation with an MRI should be considered.
== END 2018-08-28 10:42 ==
PROVIDERS: PCP Physician Assistant Medical; Visit Provider Advanced Practice Midwife
DX: O20.8 Other hemorrhage in early pregnancy (principal); Z36.89 Encounter for other specified antenatal screening
CPT/HCPCS: 76816

== ENCOUNTER 2018-08-28 11:16 | Observation (INO) | payer MEDICAID, SELFPAY ==
[2018-08-28 11:57] LABS: HGB 11.2 g/dL (12.0-15.5); Mean Corp. HGB Concentration 32.9 g/dL (32.0-36.0); Mean Corpuscular Hemoglobin 30.8 pg (27.0-33.0); Mean Corpuscular Volume 93.4 fL (80-95); Mean Platelet Volume 9.7 fL (8.0-11.0); Platelet Count 284 x1000/uL (130-400); RBC 3.64 m/cumm (4.00-5.20); RBC Distribution Width 12.8 % (11.7-14.6); White Blood Cell Count 9.89 k/cumm (4.4-10.8)
--- NOTE | 2018-08-28 11:57 | W.OBCONSULT ---
Date of service: 08/28/18 Time of Service: 12:02 Assessment and Plan (1) First trimester bleeding: Current visit: Yes Status: Acute Plan at this time is to obtain a quantitative hCG type and screen and observe the patient overnight with normal activities of daily living. She has been counseled that this may be the beginnings of a spontaneous however there is no plan for intervention at this time if her blood count is stable. Patient agreeable to the plan. History of Present Illness Chief Complaint: 1. Uterine bleeding at 15 weeks and 1 day estimated gestational age Narrative: Ms. Cleaning is 28 year old 1 3 female who is a patient of the [facility] service who I was asked to consult on regarding uterine bleeding at 15 weeks 1 day estimated gestational age. Patient had presented to the emergency department at [facility] on 08/27/2018 with a gush of bright red blood from her vagina upon arrival home from work. She denied any trauma any uterine contractions. At the time of the presentation to the emergency department of bedside ultrasound was performed and showed heart tones. Upon discharge in the emergency department she returned home and had 2 more episodes of bright red blood from her vagina and upon awaking this morning had a repeat episode. A pelvic ultrasound was performed this morning and the diagnostic imaging department that showed a viable intrauterine and a abnormal appearing placental mass in the lower uterine segment. The cervix was not funneled there was evidence of blood within the cervical canal. Is unclear if the mass was subchorionic. Radiology was unsure of a diagnosis. I met with the patient and reviewed the findings and discuss possibilities of a threatened miscarriage versus a subchorionic bleed and recommended observation for the next 24 hours. I recommended that she not restrict her activities in order to see what if any bleeding is present with normal ADLs. She is agreeable to the plan. 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 Her estimated date of delivery is 02/18/2019 by a dating ultrasound performed on 07/17/2018. She presented for care and had one visit prior to this bleeding episode. 07/08/2018 she was seen in the emergency department at approximately 7 weeks estimated gestational age with first trimester bleeding secondary to a small subchorionic bleed. That resolved and she had no further bleeding episodes until this most recent event. Rh+, antibody negative POB Hx 3 vaginal deliveries by a previous partner. No complications She had interval bilateral salpingectomy in 2016 after third . She then her and met her current partner 2017. 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 reproductive medicine. Consults Consult date: 08/28/18 Review of Systems Constitutional Reports as per HPI Cardiovascular Reports system reviewed and no additional complaints, except as docu Genitourinary Reports abnormal vaginal bleeding (No uterine cramping associated with bleeding) Musculoskeletal Reports system reviewed and no additional complaints, except as docu Psychiatric Reports anxiety (Regarding the episode of bleeding and risk of miscarriage) [facility] Social History Smoking/Tobacco Use Status: Never alcohol intake: former (stopped in march only.) substance use type: does not use Female Reproductive History Menstrual Age of Menarche: 11 Duration of menses: 3-5 days control method: permanent sterilization (ivf for this .) History History 5 Para 3 Hx # Term Pregnancies 3 Multiple births 0 Hx # Pregnancies 0 Ectopic pregnancies 0 AB induced 0 Hx Number of Living Children 3 AB spontaneous 1 Exam Const General: in distress (Tearful after the most recent OB ultrasound) mild Nutritional Appearance: overweight Resp Effort & Inspection: normal respiratory effort GI Palpation: soft, no hepatosplenomegaly and other Other: Uterus is gravid nontender to palpation External Female Exam: external appearance normal Speculum Exam - Cervix: closed cervix and abnormal cervical discharge (Bright red blood and mucus noted on speculum exam by CNM.) Bimanual Exam- Vagina & Uterus: other (Exam deferred by myself since it had previously been performed earlier this) Results Labs : 08/28/18 11:45
[2018-08-28] MEDS: Acetaminophen 325 MG TAB 650 MG PO (15:49)
--- NOTE | 2018-08-28 20:02 | W.PM.PROGNOT ---
Date of Service Date of service: 08/28/18 Time of Service: 20:02 Assessment and Plan (1) First trimester bleeding: Current visit: Yes Status: Acute Her bleeding has subsided since this morning. The plan is to continue to observe overnight. I recommended discharge in the morning with a decreased work schedule to be arranged with her employer. Patient is agreeable to the plan. Subjective Patient reports: no new complaints Interval history since last seen: Patient has been resting with BiPAP images since admission. She denies any gush since earlier this morning. She has had a small amount of bright red blood while wiping or on her underclothes during the day. The bleeding appears to be provoked by activity. She has ambulated in the room in addition to bathroom privileges. She is agreeable to remaining hospitalized overnight for patient reassurance and in the event of another bleeding episode. Exam Const General: comfortable and no acute distress Orientation: alert, awake and oriented x3 Resp Effort & Inspection: normal respiratory effort GI Inspection: normal to inspection Palpation: soft and other Other: Gravid. No focal uterine tenderness with palpation. General: deferred Skin General skin exam: no rashes or lesions noted and other (Multiple skin tattoos) Objective Objective Clinical Data: Abnormal lab results 08/28/18 08/28/18 Range/Units 11:45 11:45 RBC 3.64 L (4.00-5.20) m/cumm Hgb 11.2 L (12.0-15.5) g/dL Hct 34.0 L (36.0-46.0) % Beta HCG, Quant 24551 H (1-3) mIU/mL Vital Signs Pain Level 5 08/28/18 15:49 Laboratory Results WBC 9.89 k/cumm (4.4-10.8) 08/28/18 11:45 RBC 3.64 m/cumm (4.00-5.20) L 08/28/18 11:45 Hgb 11.2 g/dL (12.0-15.5) L 08/28/18 11:45 Hct 34.0 % (36.0-46.0) L 08/28/18 11:45 MCV 93.4 fL (80-95) 08/28/18 11:45 MCH 30.8 pg (27.0-33.0) 08/28/18 11:45 MCHC 32.9 g/dL (32.0-36.0) 08/28/18 11:45 RDW 12.8 % (11.7-14.6) 08/28/18 11:45 Plt Count 284 x1000/uL (130-400) 08/28/18 11:45 MPV 9.7 fL (8.0-11.0) 08/28/18 11:45 Beta HCG, Quant 52927 mIU/mL (1-3) H 08/28/18 11:45 Patient ABO/Rh A Positive 08/28/18 11:45 Antibody Screen Negative 08/28/18 11:45
--- NOTE | 2018-08-28 20:07 | PGE_ITS ---
Date of Service Date of service: 08/28/18 Time of Service: 20:02 Assessment and Plan (1) First trimester bleeding: Current visit: Yes Status: Acute Her bleeding has subsided since this morning. The plan is to continue to observe overnight. I recommended discharge in the morning with a decreased work schedule to be arranged with her employer. Patient is agreeable to the plan. Subjective Patient reports: no new complaints Interval history since last seen: Patient has been resting with BiPAP images since admission. She denies any gush since earlier this morning. She has had a small amount of bright red blood while wiping or on her underclothes during the day. The bleeding appears to be provoked by activity. She has ambulated in the room in addition to bathroom privileges. She is agreeable to remaining hospitalized overnight for patient reassurance and in the event of another bleeding episode. Exam Const General: comfortable and no acute distress Orientation: alert, awake and oriented x3 Resp Effort & Inspection: normal respiratory effort GI Inspection: normal to inspection Palpation: soft and other Other: Gravid. No focal uterine tenderness with palpation. General: deferred Skin General skin exam: no rashes or lesions noted and other (Multiple skin tattoos) Objective Objective Clinical Data: Abnormal lab results 08/28/18 08/28/18 Range/Units 11:45 11:45 RBC 3.64 L (4.00-5.20) m/cumm Hgb 11.2 L (12.0-15.5) g/dL Hct 34.0 L (36.0-46.0) % Beta HCG, Quant 74402 H (1-3) mIU/mL Vital Signs Pain Level 5 08/28/18 15:49 Laboratory Results WBC 9.89 k/cumm (4.4-10.8) 08/28/18 11:45 RBC 3.64 m/cumm (4.00-5.20) L 08/28/18 11:45 Hgb 11.2 g/dL (12.0-15.5) L 08/28/18 11:45 Hct 34.0 % (36.0-46.0) L 08/28/18 11:45 MCV 93.4 fL (80-95) 08/28/18 11:45 MCH 30.8 pg (27.0-33.0) 08/28/18 11:45 MCHC 32.9 g/dL (32.0-36.0) 08/28/18 11:45 RDW 12.8 % (11.7-14.6) 08/28/18 11:45 Plt Count 284 x1000/uL (130-400) 08/28/18 11:45 MPV 9.7 fL (8.0-11.0) 08/28/18 11:45 Beta HCG, Quant 10508 mIU/mL (1-3) H 08/28/18 11:45 Patient ABO/Rh A Positive 08/28/18 11:45 Antibody Screen Negative 08/28/18 11:45
--- NOTE | 2018-08-29 08:32 | W.PM.DS.N ---
Date of service: 08/29/18 Time of Service: 08:38 DS: Diagnosis Discharge Diagnosis (1) First trimester bleeding: Status: Acute Asessment and Plan: Episode of bright red blood at 15 weeks 1 day abnormal findings on OB ultrasound with segment of placenta. Appropriate hCG. Viable IUP (2) : Status: Acute Discharge Plan Disposition Patient Disposition: HOME Condition: Fair Discharge Details Reason For Visit: BLEEDING IN Admit Date/Time: 08/28/18 11:16 Admit Provider: Adriana Shaikh Attending Provider: Adriana Shaikh Primary Care Provider: Yuan Delgado Hospital Course Hospital Course: Patient was admitted the morning of 08/28/2018 after 2 episodes of bright red blood without pain or cramping. Pelvic ultrasound showed what appeared to be an abnormal appearing placenta and proximity to normal placenta and viable IUP. She was observed for 24 hours by the morning of discharge or bleeding had ceased. HCG within normal limits Rh+ hematocrit 34%. She will be discharged home with modified work activity and will return to hospital in the event of a repeat episode of bleeding Home Meds and New Rx's Prescriptions: No Action PNV cmb#95-ferrous fumarate-FA [] 28 mg iron- 800 mcg Tablet 1 tab PO DAILY RF: 0 Discharge Instructions Additional Instructions: 1 rest in bed today and gradually increase your activity as you desire. She may return to work with modified work at routine I recommend 5 hours a day on average. Call [phone] in the event of a repeat bleeding episode. I recommend no intercourse and nothing in the vagina. Follow-up with Dr. Gardner in 2 weeks or as needed. Activity:: Activity as Tolerated Equipment/Supplies:: No Equipment Needed Diet:: As Tolerated Discharge Orders Discharge Orders: Discharge Order (Routine); Ordered 08/29/18 Ordered By: Shania Gardner DS: Data Vitals/I&O Vitals and I&O: Vital Signs Pain Level 5 08/28/18 15:49 Labs on day of discharge: Labs from last 24 hours 08/28/18 08/28/18 08/28/18 11:45 11:45 11:45 WBC 9.89 RBC 3.64 L Hgb 11.2 L Hct 34.0 L MCV 93.4 MCH 30.8 MCHC 32.9 RDW 12.8 Plt Count 284 MPV 9.7 Beta HCG, Quant 98067 H Patient ABO/Rh A Positive Antibody Screen Negative PFSH Medical History Other antepartum hemorrhage, first trimester (Acute) (Acute) Anxiety Surgical History Ligation of fallopian tube (06/07/16) excision of keloid on chest Social History Smoking/Tobacco Use Status: Never alcohol intake: former (stopped in march only.) substance use type: does not use Female Reproductive History Menstrual Age of Menarche: 11 Duration of menses: 3-5 days control method: permanent sterilization (ivf for this .) History History 5 Para 3 Hx # Term Pregnancies 3 Multiple births 0 Hx # Pregnancies 0 Ectopic pregnancies 0 AB induced 0 Hx Number of Living Children 3 AB spontaneous 1
--- NOTE | 2018-08-29 08:43 | W.PM.PROGNOT ---
Date of Service Date of service: 08/29/18 Time of Service: 08:43 Assessment and Plan (1) First trimester bleeding: Current visit: Yes Status: Acute Subjective Patient reports: feels better Interval history since last seen: Patient slept during the night she reports no bleeding this morning and only flecks of old blood in the toilet bowl after voiding. No cramping or abdominal pain. She reports good movement. She was discharged home with instructions to follow-up in approximately 2 weeks or as needed. She is also instructed on pelvic rest and to return to the hospital in the event of repeat bleeding episode. Exam Const General: comfortable and no acute distress Nutritional Appearance: overweight Orientation: alert, awake and oriented x3 Resp Effort & Inspection: normal respiratory effort GI Palpation: other Other: Gravid no focal uterine tenderness no lower quadrant pain with palpation General: deferred Objective Objective Clinical Data: Abnormal lab results 08/28/18 08/28/18 Range/Units 11:45 11:45 RBC 3.64 L (4.00-5.20) m/cumm Hgb 11.2 L (12.0-15.5) g/dL Hct 34.0 L (36.0-46.0) % Beta HCG, Quant 12098 H (1-3) mIU/mL Vital Signs Pain Level 5 08/28/18 15:49 Laboratory Results WBC 9.89 k/cumm (4.4-10.8) 08/28/18 11:45 RBC 3.64 m/cumm (4.00-5.20) L 08/28/18 11:45 Hgb 11.2 g/dL (12.0-15.5) L 08/28/18 11:45 Hct 34.0 % (36.0-46.0) L 08/28/18 11:45 MCV 93.4 fL (80-95) 08/28/18 11:45 MCH 30.8 pg (27.0-33.0) 08/28/18 11:45 MCHC 32.9 g/dL (32.0-36.0) 08/28/18 11:45 RDW 12.8 % (11.7-14.6) 08/28/18 11:45 Plt Count 284 x1000/uL (130-400) 08/28/18 11:45 MPV 9.7 fL (8.0-11.0) 08/28/18 11:45 Beta HCG, Quant 37931 mIU/mL (1-3) H 08/28/18 11:45 Patient ABO/Rh A Positive 08/28/18 11:45 Antibody Screen Negative 08/28/18 11:45
--- NOTE | 2018-08-29 08:46 | PGE_ITS ---
Date of Service Date of service: 08/29/18 Time of Service: 08:43 Assessment and Plan (1) First trimester bleeding: Current visit: Yes Status: Acute Subjective Patient reports: feels better Interval history since last seen: Patient slept during the night she reports no bleeding this morning and only flecks of old blood in the toilet bowl after voiding. No cramping or abdominal pain. She reports good movement. She was discharged home with instructions to follow-up in approximately 2 weeks or as needed. She is also instructed on pelvic rest and to return to the hospital in the event of repeat bleeding episode. Exam Const General: comfortable and no acute distress Nutritional Appearance: overweight Orientation: alert, awake and oriented x3 Resp Effort & Inspection: normal respiratory effort GI Palpation: other Other: Gravid no focal uterine tenderness no lower quadrant pain with palpation General: deferred Objective Objective Clinical Data: Abnormal lab results 08/28/18 08/28/18 Range/Units 11:45 11:45 RBC 3.64 L (4.00-5.20) m/cumm Hgb 11.2 L (12.0-15.5) g/dL Hct 34.0 L (36.0-46.0) % Beta HCG, Quant 00011 H (1-3) mIU/mL Vital Signs Pain Level 5 08/28/18 15:49 Laboratory Results WBC 9.89 k/cumm (4.4-10.8) 08/28/18 11:45 RBC 3.64 m/cumm (4.00-5.20) L 08/28/18 11:45 Hgb 11.2 g/dL (12.0-15.5) L 08/28/18 11:45 Hct 34.0 % (36.0-46.0) L 08/28/18 11:45 MCV 93.4 fL (80-95) 08/28/18 11:45 MCH 30.8 pg (27.0-33.0) 08/28/18 11:45 MCHC 32.9 g/dL (32.0-36.0) 08/28/18 11:45 RDW 12.8 % (11.7-14.6) 08/28/18 11:45 Plt Count 284 x1000/uL (130-400) 08/28/18 11:45 MPV 9.7 fL (8.0-11.0) 08/28/18 11:45 Beta HCG, Quant 33447 mIU/mL (1-3) H 08/28/18 11:45 Patient ABO/Rh A Positive 08/28/18 11:45 Antibody Screen Negative 08/28/18 11:45
--- NOTE | 2018-08-29 08:46 | W.PM.PROGNOT ---
Date of Service Date of service: 08/29/18 Time of Service: 08:47 Assessment and Plan (1) First trimester bleeding: Current visit: Yes Status: Acute Objective Objective Clinical Data: Abnormal lab results 08/28/18 08/28/18 Range/Units 11:45 11:45 RBC 3.64 L (4.00-5.20) m/cumm Hgb 11.2 L (12.0-15.5) g/dL Hct 34.0 L (36.0-46.0) % Beta HCG, Quant 99025 H (1-3) mIU/mL Vital Signs Pain Level 5 08/28/18 15:49 Laboratory Results WBC 9.89 k/cumm (4.4-10.8) 08/28/18 11:45 RBC 3.64 m/cumm (4.00-5.20) L 08/28/18 11:45 Hgb 11.2 g/dL (12.0-15.5) L 08/28/18 11:45 Hct 34.0 % (36.0-46.0) L 08/28/18 11:45 MCV 93.4 fL (80-95) 08/28/18 11:45 MCH 30.8 pg (27.0-33.0) 08/28/18 11:45 MCHC 32.9 g/dL (32.0-36.0) 08/28/18 11:45 RDW 12.8 % (11.7-14.6) 08/28/18 11:45 Plt Count 284 x1000/uL (130-400) 08/28/18 11:45 MPV 9.7 fL (8.0-11.0) 08/28/18 11:45 Beta HCG, Quant 84780 mIU/mL (1-3) H 08/28/18 11:45 Patient ABO/Rh A Positive 08/28/18 11:45 Antibody Screen Negative 08/28/18 11:45
== END 2018-08-29 09:54 | disposition home or self-care (01) ==
PROVIDERS: Admitting Provider Nurse Practitioner; PCP Physician Assistant Medical; Visit Provider Nurse Practitioner
DX: O20.9 Hemorrhage in early pregnancy, unspecified (principal); O09.812 Supervision of pregnancy resulting from assisted reproductive technology, second trimester; Z3A.15 15 weeks gestation of pregnancy
CPT/HCPCS: 36415; 85027; 86850; 86900; 86901; 99231; 99252; NC; 84702; G0378

== ENCOUNTER 2018-09-12 01:22 | Outpatient (CLI) | payer MEDICAID, SELFPAY ==
--- NOTE | 2018-09-12 11:17 | DI.US_ITS ---
SYMPTOMS/DIAGNOSIS: F/U ON PLACENTAL STRUCTURE, HEMORRHAGE IN EARLY , O20.9 OB ULTRASOUND: Comparison 08/28/18. There is again seen a collection deep to the margin of the placenta. The has been evolution of the collection which now is predominantly anechoic. There does not appear to be any new hemorrhage present. It does not appear to be significantly changed in size. A hoang gestation is again noted in the cephalic presentation. The heart rate is 152 bpm. The amniotic fluid appears within normal limits. IMPRESSION: Evolving hemorrhage seen originating around the margin of the placenta. No definite increase in size is seen since 08/28/18. Many abnormalities cannot be diagnosed. A normal exam does not exclude a congenital anomaly. Radiology No. [id number] LMP: Exam Date: 09/12/18 [facility] wks days on [facility] ([facility]) 02/18/19 Confirmed: HISTORY: f/u intraplacental bleed ? PREDICTED GESTATIONAL AGE NUMBER 17+2 weeks with a range of week to weeks. 1 Determined by 1STUS X LMP___HISTORY Info. pertaining to fetus # PLACENTA PRESENTATION Grade I Cephalic X Anterior X Posterior___ Breech____ Right Left Transverse(head right___ Fundal___Low-lying___Previa___ Transverse(head left___ Varying BIOMETRY AMNIOTIC FLUID BPD: mm weeks Normal HC: mm weeks AC: mm weeks FL: mm weeks AMNIOTIC FLUID INDEX >26 WK CRL: mm weeks Cisterna Magna: mm CI: RUQ: LUQ Cerebellum: cm EFW: grams Percentile RLQ: LLQ Total: cms Composite AGE= wks EDC by US BIOPHYSICAL PROFILE ANATOMY IDENTIFIED SCORE 0/2 Heart: 4-Chamber___Rate: 152 BPM LVOT: RVOT: Amniotic Fluid(>2cms)____ Stomach: Kidneys: Respirations (>30 secs) Bladder: Post. Fossa: Body Flex/Extension 3 vessel cord: Ventricles: cord insertion: Lips:____ Extremity Flex/Extension spinal morphology: Nose: Total Score= Palate: NS=not seen Comments- Complex area in posterior UT still visualized on today's exam. ? no noticeable change in size
== END 2018-09-12 01:42 ==
PROVIDERS: PCP Physician Assistant Medical; Visit Provider Obstetrics & Gynecology Gynecology
DX: O20.9 Hemorrhage in early pregnancy, unspecified (principal); Z36.89 Encounter for other specified antenatal screening
CPT/HCPCS: 76815

== ENCOUNTER 2018-09-24 00:12 | Outpatient (CLI) | payer MEDICAID, SELFPAY ==
--- NOTE | 2018-09-24 14:30 | DI.US_ITS ---
SYMPTOMS/DIAGNOSIS: MORPHOLOGY, Z34.90, ? SUBCHORIONIC BLEED OB ULTRASOUND: Many abnormalities cannot be diagnosed. A normal exam does not exclude a congenital anomaly. Radiology No. [id number] LMP: Exam Date: 09/24/18 [facility] wks days on EDC ([facility]) 02/18/19 Confirmed: HISTORY: PREDICTED GESTATIONAL AGE NUMBER 19 weeks with a range of 18 weeks to 20 weeks. 1 Determined by_X__1ST US___LMP___HISTORY PLACENTA PRESENTATION Grade I Cephalic_X__ Anterior_X__Posterior___ Breech____ Right Left Transverse(head right___ Fundal___Low-lying___Previa___ Transverse(head left___ Varying BIOMETRY AMNIOTIC FLUID BPD: 44 mm 19+1 weeks Normal HC: 168 mm 19+3 weeks AC: 137mm 19+1 weeks FL: 30 mm 19+3 weeks AMNIOTIC FLUID INDEX >26 WK CRL: mm weeks Cisterna Magna: 3.4 mm CI: 74.5 RUQ: LUQ Cerebellum: 1.9 cm EFW: 283 grams Percentile: 62nd RLQ: LLQ Total: cms Composite AGE= 19+2 wks EDC by US: 02/16/19 BIOPHYSICAL PROFILE ANATOMY IDENTIFIED SCORE 0/2 Heart: 4-Chamber_X__Rate:BPM 150 LVOT:____X RVOT:__X Amniotic Fluid(>2cms)____ Stomach:___X____ Kidneys:___X____ Respirations (>30 secs) Bladder:____X____ Post. Fossa:__X Body Flex/Extension 3-vessel cord:__X Ventricles:___X Cord insertion:__X___ Lips:__X__ Extremity Flex/Extension Spinal morphology:_X Nose:_X___ Total Score= Palate:___X____ NS=not seen COMMENTS: Comparison is made with August, and September,. The placenta is anterior and does not appear low lying. There has been no significant change of the previously noted subchorionic hemorrhage. The subchorionic hemorrhage again is noted to extend across the cervical os. The biometric measurements correspond to 19 weeks 2 days, consistent with the previous dating. No abnormalities are identified. The amount of amniotic fluid appears normal. IMPRESSION: Stable posterior subchorionic hemorrhage, which extends over the cervical os. No abnormalities are identified.
== END 2018-09-24 00:32 ==
PROVIDERS: PCP Physician Assistant Medical; Visit Provider Obstetrics & Gynecology Gynecology
DX: Z34.92 Encounter for supervision of normal pregnancy, unspecified, second trimester (principal); O46.92 Antepartum hemorrhage, unspecified, second trimester
CPT/HCPCS: 76805

== ENCOUNTER 2018-10-31 10:00 | Observation (INO) | payer MEDICAID, SELFPAY ==
--- NOTE | 2018-10-31 10:55 | DI.US_ITS ---
SYMPTOMS/DIAGNOSIS: BLEEDING OB ULTRASOUND: There is a single living intrauterine gestation. Estimated sonographic age is 24 weeks 3 days. The fetus is in the cephalic presentation. heart rate is 153 bpm. anatomic evaluation was not performed during this examination. The amniotic fluid index is 13.5 cm. Visually amniotic fluid appears within normal limits. The estimated weight is 644 grams. There has been interval decrease in size of the subchorionic hemorrhage seen at the inferior aspect of the placenta. It no longer appears to overlie the os. The placenta is anterior. No new hemorrhage is seen. IMPRESSION: 1. Single living intrauterine gestation. Estimated sonographic age is 24 weeks 3 days. 2. Interval decrease in size of the subchorionic hemorrhage since 09/24/18. Many abnormalities cannot be diagnosed. A normal exam does not exclude a congenital anomaly. Radiology No. [id number] LMP: Exam Date: 10/31/18 [facility] wks days on EDC ([facility]) Confirmed: HISTORY: f/u weight and NUBIA, spotting, hx of subchorionic hemorrhage PREDICTED GESTATIONAL AGE NUMBER 24+2 weeks with a range of 23+2 weeks to 25+2 weeks. 1 Determined by 1STUS X LMP___HISTORY Info. pertaining to fetus # PLACENTA PRESENTATION Grade I-II Cephalic X Anterior___Posterior___ Breech____ Right Left Transverse(head right___ Fundal___Low-lying___Previa___ Transverse(head left___ Varying BIOMETRY AMNIOTIC FLUID BPD: 59 mm 24+2 weeks Normal HC: 229 mm 24+6 weeks AC: 195 mm 24+1 weeks FL: 43 mm 24+1 weeks AMNIOTIC FLUID INDEX >26 WK CRL: mm weeks Cisterna Magna: mm CI: 74 RUQ: 4.0 LUQ: 2.5 Cerebellum: cm EFW: 644 grams Percentile 38% RLQ: 4.5 LLQ: 2.5 Total: 13.5 cms Composite AGE= 24+3 wks EDC by US 02/17/19 BIOPHYSICAL PROFILE ANATOMY IDENTIFIED SCORE 0/2 Heart: 4-Chamber___Rate: 153 BPM LVOT: RVOT: Amniotic Fluid(>2cms)____ Stomach: Kidneys: Respirations (>30 secs) Bladder: Post. Fossa: Body Flex/Extension 3 vessel cord: Ventricles: cord insertion: Lips:____ Extremity Flex/Extension spinal morphology: Nose: Total Score= Palate: NS=not seen Comments: 1 lb 8 oz Subchorionic hemorrhage is again noted, but appears to have diminished in size.
[2018-10-31 11:48] LABS: PTT Activated 22.8 sec (21.0-31.4); Prothrombin Time 9.5 sec (9.3-11.0)
[2018-10-31 12:41] LABS: HCT 35.2 % (36.0-46.0); HGB 11.4 g/dL (12.0-15.5); Mean Corp. HGB Concentration 32.4 g/dL (32.0-36.0); Mean Corpuscular Hemoglobin 30.2 pg (27.0-33.0); Mean Corpuscular Volume 93.4 fL (80-95); Mean Platelet Volume 10.6 fL (8.0-11.0); Platelet Count 309 x1000/uL (130-400); RBC 3.77 m/cumm (4.00-5.20); RBC Distribution Width 13.8 % (11.7-14.6); White Blood Cell Count 15.23 k/cumm (4.4-10.8)
[2018-10-31 21:32] LABS: Fibrinogen 484 mg/dl (171-384)
== END 2018-10-31 15:07 | disposition home or self-care (01) ==
PROVIDERS: Admitting Provider Obstetrics & Gynecology; PCP Physician Assistant Medical; Visit Provider Obstetrics & Gynecology
DX: O46.92 Antepartum hemorrhage, unspecified, second trimester (principal); Z3A.24 24 weeks gestation of pregnancy
CPT/HCPCS: 36415; 76816; 85027; 85384; 90471; 85610; 85730; G0378

== ENCOUNTER 2018-11-27 01:06 | Outpatient (CLI) | payer MEDICAID, SELFPAY ==
--- NOTE | 2018-11-27 13:42 | DI.US_ITS ---
SYMPTOMS/DIAGNOSIS: ASSESS PLACENTAL LOCATION, LOW-LYING PLACENTA WITHOUT HEMORRHAGE IN SECOND TRIMESTER, O44.42, H/O SUBCHORIONIC BLEED LIMITED OBSTETRICAL ULTRASOUND: Many abnormalities cannot be diagnosed. A normal exam does not exclude a congenital anomaly. Radiology No. [id number] LMP: Exam Date: 11/27/18 [facility] wks days on EDC ([facility]) 02/18/19 Confirmed: HISTORY: PREDICTED GESTATIONAL AGE NUMBER 28+1 weeks with a range of week to weeks. 1 Determined by___1STUS___LMP___HISTORY PLACENTA PRESENTATION Grade I-II Cephalic_X__ Anterior_X__Posterior___ Breech____ Right Left Transverse(head right___ Fundal___Low-lying___Previa___ Transverse(head left___ Varying BIOMETRY AMNIOTIC FLUID BPD: mm weeks Normal HC: mm weeks Oligo Polyhydramnios AC: mm weeks FL: mm weeks AMNIOTIC FLUID INDEX >26 WK CRL: mm weeks Cisterna Magna: mm CI: RUQ: LUQ Cerebellum: cm EFW: grams Percentile RLQ: LLQ Total: cms Composite AGE= wks EDC by US BIOPHYSICAL PROFILE ANATOMY IDENTIFIED SCORE 0/2 Heart: 4-Chamber___Rate:BPM 136 LVOT: RVOT: Amniotic Fluid(>2cms)____ Stomach: Kidneys: Respirations (>30 secs) Bladder: Post. Fossa: Body Flex/Extension 3 vessel cord: Ventricles: cord insertion: Lips:____ Extremity Flex/Extension spinal morphology: Nose: Total Score= Palate: NS=not seen COMMENTS: Comparison is 09/24/18. There is a single intrauterine gestation in the cephalic presentation. heart rate is 136 beats per minute. biometry and anatomy were not evaluated on this examination. Placenta is anterior. There is no evidence of previa. The placental tip is 5.3 cm from the internal os. There is a small anechoic residual fluid collection adjacent to the tip of the placenta anteriorly. It does not cover the internal os. The residual hemorrhage measures 1.8 cm in diameter. IMPRESSION: 1. No evidence of placenta previa. 2. Significant reduction in size of the subchorionic hemorrhage. It no longer covers the internal os.
== END 2018-11-27 01:26 ==
PROVIDERS: PCP Physician Assistant Medical; Visit Provider Obstetrics & Gynecology Gynecology
DX: O44.43 Low lying placenta NOS or without hemorrhage, third trimester (principal); Z36.2 Encounter for other antenatal screening follow-up
CPT/HCPCS: 76815

== ENCOUNTER 2018-12-08 14:11 | Observation (INO) | payer MEDICAID, SELFPAY ==
[2018-12-08 15:11] LABS: HCT 37.1 % (36.0-46.0); Mean Corp. HGB Concentration 32.3 g/dL (32.0-36.0); Mean Corpuscular Hemoglobin 30.3 pg (27.0-33.0); Mean Corpuscular Volume 93.7 fL (80-95); Mean Platelet Volume 10.8 fL (8.0-11.0); Platelet Count 265 x1000/uL (130-400); RBC 3.96 m/cumm (4.00-5.20); RBC Distribution Width 15.4 % (11.7-14.6); White Blood Cell Count 13.16 k/cumm (4.4-10.8)
--- NOTE | 2018-12-08 16:13 | W.PM.HP.N ---
Date of service: 12/08/18 Time of Service: 16:13 Assessment and Plan (1) Vaginal bleeding during : Current visit: Yes Status: Acute (2) Subchorionic hematoma: Current visit: Yes Status: Acute Will place on observation for now. During her evaluation she had no new bleeding. Will provide betamethasone series. If no further bleeding tonight I would consider allowing her to go home as she has difficulties arranging childcare. She will return tomorrow for repeat BMZ and NST. History of Present Illness Chief Complaint: Vaginal bleeding Narrative: 28year old @ 30 weeks gestation presents with report of vaginal bleeding at home. The patient is well know to have had a subchorionic hematoma this and has had intermittent light vaginal bleeding throughout the entire . She reports some mild back pain. movement has been good. She denies contractions. PFSH Medical History Low lying placenta nos or without hemorrhage, second trimester (Acute) Anxiety (Acute) Other antepartum hemorrhage, first trimester (Acute) Surgical History Ligation of fallopian tube (06/07/16) excision of keloid on chest Social History Smoking/Tobacco Use Status: Never Alcohol Intake: former (stopped in march only.) Drug use: Never Substance use type: does not use Household members: significant other and children Number of Children: 3 current occupation: Hairdresser Do you feel safe in your relationship?: Yes Additional Social history: FOB- [place]. He has 3 children. Female Reproductive History Menstrual Age of Menarche: 11 Duration of menses: 3-5 days control method: permanent sterilization (ivf for this .) History History 5 Para 3 Hx # Term Pregnancies 3 Multiple births 0 Hx # Pregnancies 0 Ectopic pregnancies 0 AB induced 0 Hx Number of Living Children 3 AB spontaneous 1 Meds Home Medications Medication Instructions Recorded Confirmed Type PNV cmb#95-ferrous fumarate-FA 1 tab PO DAILY 07/07/18 11/27/18 History [] venlafaxine ER 37.5 mg 37.5 mg PO DAILY 09/24/18 11/27/18 History capsule,extended release 24 hr Allergies Allergy/AdvReac Type Severity Reaction Status Date / Time bupropion HCl Allergy Intermediate Hives Unverified 11/27/18 14:39 [From Wellbutrin] Results Labs : 12/08/18 14:30 Laboratory Results - last 24 hr 12/08/18 14:30 WBC 13.16 H RBC 3.96 L Hgb 12.0 Hct 37.1 MCV 93.7 MCH 30.3 MCHC 32.3 RDW 15.4 H Plt Count 265 MPV 10.8
[2018-12-08] MEDS: Betamet Acet/Betamet Na Ph Inj. 30 MG/5 ML 12 MG IM (16:51)
--- NOTE | 2018-12-09 08:42 | PGE_ITS ---
Date of Service Date of service: 12/09/18 Time of Service: 08:37 Assessment and Plan (1) Vaginal bleeding during : Current visit: Yes Status: Acute repeat OB u/s in DI today. If pt is discharged to home she will remain on pelvic rest, possible activity limitation. (2) Subchorionic hematoma: Current visit: Yes Status: Acute Subjective Interval history since last seen: Patient admitted for observation yesterday a fter waking up at home. 29 weeks 6 days EGA history of subchorionic hematoma which had resolved at the time of a recent repeat ultrasound. She had a unremarkable night. No uterine contractions noted on external tocometer, heart rate baseline 150s with category 1 tracing. Her only discomfort is inguinal pain. Denies any focal uterine tenderness. States she passed a quarter size blood clot while sitting the toilet this morning. Exam Const General: no acute distress and other Nutritional Appearance: well nourished Orientation: alert, awake and oriented x3 Resp Effort & Inspection: normal respiratory effort Other: Uterus soft, non-tender gravid. FHR baseline 150s with category1 tracing. No contractions on external tocometer. SVE deferred. Skin General skin exam: no rashes or lesions noted Extrem General: normal to inspection, full ROM and normal capillary refill Objective Objective Clinical Data: Abnormal lab results 12/08/18 Range/Units 14:30 WBC 13.16 H (4.4-10.8) k/cumm RBC 3.96 L (4.00-5.20) m/cumm RDW 15.4 H (11.7-14.6) % Laboratory Results WBC 13.16 k/cumm (4.4-10.8) H 12/08/18 14:30 RBC 3.96 m/cumm (4.00-5.20) L 12/08/18 14:30 Hgb 12.0 g/dL (12.0-15.5) 12/08/18 14:30 Hct 37.1 % (36.0-46.0) 12/08/18 14:30 MCV 93.7 fL (80-95) 12/08/18 14:30 MCH 30.3 pg (27.0-33.0) 12/08/18 14:30 MCHC 32.3 g/dL (32.0-36.0) 12/08/18 14:30 RDW 15.4 % (11.7-14.6) H 12/08/18 14:30 Plt Count 265 x1000/uL (130-400) 12/08/18 14:30 MPV 10.8 fL (8.0-11.0) 12/08/18 14:30
--- NOTE | 2018-12-09 09:16 | DI.US_ITS ---
SYMPTOMS/DIAGNOSIS: RE-EVALUATE SUBCHORIONIC HEMATOMA LIMITED OB ULTRASOUND: Limited third trimester ultrasound was performed. Note is again made of 1 cm stable subchorionic hematoma of the inferior aspect of the placenta as noted on previous studies. There may be a small amount of fluid in the cervix which may be associated with the patient's reported vaginal bleeding. No additional placental or amniotic fluid abnormality seen. cardiac activity observed at a rate of 135 bpm. Fetus is in breech presentation. No placenta previa seen. Many abnormalities cannot be diagnosed. A normal exam does not exclude a congenital anomaly. Radiology No. [id number] LMP: Exam Date: 12/09/18 [facility] wks days on [facility]C ([facility]) Confirmed: HISTORY: f/u subchorionic hemorrhage, acute bleeding PREDICTED GESTATIONAL AGE NUMBER 30 weeks with a range of weeks to weeks. 1 Determined by___1STUS___LMP___HISTORY Info. pertaining to fetus # PLACENTA PRESENTATION Grade I-II Cephalic___ Anterior X Posterior___ Breech X Right Left Transverse(head right___ Fundal___Low-lying___Previa___ Transverse(head left___ Varying BIOMETRY AMNIOTIC FLUID BPD: mm weeks Normal HC: mm weeks AC: mm weeks FL: mm weeks AMNIOTIC FLUID INDEX >26 WK CRL: mm weeks Cisterna Magna: mm CI: RUQ: LUQ Cerebellum: cm EFW: grams Percentile RLQ: LLQ Total: cms Composite AGE= wks EDC by US BIOPHYSICAL PROFILE ANATOMY IDENTIFIED SCORE 0/2 Heart: 4-Chamber___Rate: 135 BPM LVOT: RVOT: Amniotic Fluid(>2cms)____ Stomach: Kidneys: Respirations (>30 secs) Bladder: Post. Fossa: Body Flex/Extension 3 vessel cord: Ventricles: cord insertion: Lips:____ Extremity Flex/Extension spinal morphology: Nose: Total Score= Palate: NS=not seen Comments: Small stable MILLIE 1.1 cm. Question mild amount of fluid within cervix/vaginal canal.
--- NOTE | 2018-12-09 10:14 | W.PM.DS.N ---
Date of service: 12/09/18 Time of Service: 10:15 DS: Diagnosis Discharge Diagnosis (1) Vaginal bleeding during : Status: Acute (2) Subchorionic hematoma: Status: Acute Discharge Plan Disposition Patient Disposition: HOME Condition: Fair Discharge Details Reason For Visit: VAGINAL BLEEDING Admit Date/Time: 12/08/18 14:11 Admit Provider: Puneet Anderson Attending Provider: Puneet Anderson Primary Care Provider: Yuan Delgado Hospital Course Hospital Course: 28year old @ 30 weeks gestation presented with report of vaginal bleeding at home. The patient is well know to have had a subchorionic hematoma this and has had intermittent light vaginal bleeding throughout the entire . Recent u/s imaging showed resolving hematoma and no low lying placenta. She reportsed some mild back pain. movement had been good. She denied contractions. She was observed overnight and was discharged home on hospital day 2. The OB ultrasound performed diagnostic imaging showed no evidence of increased bleeding at the previous subchorionic hematoma. There was blood in the cervical canal and the vagina. Cervix was long and no funneling appreciated. Patient was discharged home with instructions for pelvic rest and modified activity schedule. Home Meds and New Rx's Prescriptions: No Action venlafaxine [Effexor XR] 37.5 mg capsule,extended release 24hr 37.5 mg PO DAILY RF: 0 PNV cmb#95-ferrous fumarate-FA [] 28 mg iron- 800 mcg Tablet 1 tab PO DAILY RF: 0 Discharge Instructions Additional Instructions: No sexual relations. Stay at work today,rest. Return to the center this afternoon for final dose of betamethasone. Return to the office in the event of increased bleeding. Keep your next OB appointment. Activity:: Activity as Tolerated Equipment/Supplies:: No Equipment Needed Diet:: As Tolerated Discharge Orders Discharge Orders: Discharge Order (Routine); Ordered 12/09/18 Ordered By: Shania Gardner Exam Const General: comfortable and no acute distress Orientation: alert, awake and oriented x3 Resp Effort & Inspection: normal respiratory effort GI Inspection: other (Gravid fundal height appropriate for gestational age) General: deferred Extrem General: normal to inspection, full ROM and normal capillary refill DS: Data Labs on day of discharge: Labs from last 24 hours 12/08/18 14:30 WBC 13.16 H RBC 3.96 L Hgb 12.0 Hct 37.1 MCV 93.7 MCH 30.3 MCHC 32.3 RDW 15.4 H Plt Count 265 MPV 10.8 Final report if OB u/s pending. PFS Medical History Subchorionic hematoma (Acute) Vaginal bleeding during (Acute) Low lying placenta nos or without hemorrhage, second trimester (Acute) Anxiety (Acute) Other antepartum hemorrhage, first trimester (Acute) Surgical History Ligation of fallopian tube (06/07/16) excision of keloid on chest Social History Smoking/Tobacco Use Status: Never Alcohol Intake: former (stopped in march only.) Drug use: Never Substance use type: does not use Household members: significant other and children Number of Children: 3 current occupation: Hairdresser Do you feel safe in your relationship?: Yes Additional Social history: FOB- [place]. He has 3 children. Female Reproductive History Menstrual Age of Menarche: 11 Duration of menses: 3-5 days control method: permanent sterilization (ivf for this .) History History 5 Para 3 Hx # Term Pregnancies 3 Multiple births 0 Hx # Pregnancies 0 Ectopic pregnancies 0 AB induced 0 Hx Number of Living Children 3 AB spontaneous 1
== END 2018-12-09 11:16 | disposition home or self-care (01) ==
PROVIDERS: Admitting Provider Obstetrics & Gynecology; PCP Physician Assistant Medical; Visit Provider Obstetrics & Gynecology
DX: O41.8X30 Other specified disorders of amniotic fluid and membranes, third trimester, not applicable or unspecified (principal); O46.93 Antepartum hemorrhage, unspecified, third trimester; Z3A.30 30 weeks gestation of pregnancy
CPT/HCPCS: 36410; 76815; 85027; 96372; 99223; 99231; NC; G0378; J0702

== ENCOUNTER 2018-12-09 17:42 | Outpatient (CLI) | payer MEDICAID, SELFPAY | END 2018-12-09 18:02 | PROVIDERS: PCP Physician Assistant Medical; Visit Provider Obstetrics & Gynecology Gynecology | DX: O41.8X30 Other specified disorders of amniotic fluid and membranes, third trimester, not applicable or unspecified (principal); O46.93 Antepartum hemorrhage, unspecified, third trimester; Z3A.30 30 weeks gestation of pregnancy | CPT/HCPCS: 96372 ==

== ENCOUNTER 2019-01-22 18:48 | Outpatient (REF) | payer MEDICAID, SELFPAY ==
[2019-01-22 18:50] LABS: *AMPHETAMINES SCREEN URINE Negative (Negative); *BARBITURATES SCREEN URINE Negative (Negative); *BENZODIAZEPINES SCREEN URINE Negative (Negative); Cannabinoids THC Negative (Negative); Cocaine Screen,Urine Negative (Negative); METHADONE URINE SCREEN Negative (Negative); OPIATES URINE SCREEN Negative (Negative)
[2019-01-22 19:13] LABS: Tricyclic Antidepressants Negative (Negative)
[2019-01-28 11:01] LABS: Buprenorphine Negative
== END 2019-01-22 19:08 ==
LOC: LBN 18:48
PROVIDERS: Visit Provider Obstetrics & Gynecology Gynecology
DX: Z34.93 Encounter for supervision of normal pregnancy, unspecified, third trimester (principal); Z36.85 Encounter for antenatal screening for Streptococcus B
CPT/HCPCS: 80307; 87081

== ENCOUNTER 2019-01-31 23:58 | Emergency (ER) | payer MEDICAID, SELFPAY ==
[2019-02-01 00:01] VITALS: BP 136/82; PULSE 95; RESP 18; TEMP 36; O2SAT 97
--- NOTE | 2019-02-01 00:17 | ED.GENADUL_ITS ---
Discharge Plan Disposition Patient Disposition: HOME Condition: Stable Discharge Details Chief Complaint: Orthopedic Clinical Impression: Localized swelling of right lower leg Primary Care Provider: Yuan Delgado ED Provider: David Tan Home Meds and New Rx's Prescriptions: No Action venlafaxine [Effexor XR] 37.5 mg capsule,extended release 24hr 37.5 mg PO DAILY RF: 0 hydroxyzine HCl 50 mg tablet 50 mg PO QHS PRN (Reason: insomnia) Qty: 30 RF: 0 PNV cmb#95-ferrous fumarate-FA [] 28 mg iron- 800 mcg Tablet 1 tab PO DAILY RF: 0 Discharge Instructions Additional Instructions: Continue to elevated the leg when sitting or laying down you should be contacted with an appointment for an ultrasound on Sunday if you have severe worsening pain or new symptoms such as chest pain or difficulty breathing return to the emergency department Medical Decision Making 28 yo female who is ~36 weeks who comes in with right leg swelling and discomfort since yesterday. She denies any trauma or falls, no fevers, chest pain, sob. She localizes the swelling to the right ankle and has anterior lower leg pain from the knee to the ankle. HAs no visible swelling of her ankle compared to the left on my exam with intact 2+ dp/pt pulses and intact sensation. NO significaitn tenderness on exam. She has full rom of the knee and ankle and hip. No radiology u/s avaialble to eval for dvt but feel she is low likelihood to have this based on exam and on my limited bedside u/s she has fully collapsing popliteal and femoral veins with good flow when calf is squeezed. I advised she should have an u/s done on Sunday which I ordered and she will return if she worsens. She has no erythema or crepitus so duobt cellulitis or nec fasc. No falls or other trauma so doubt fx/dislocation Differential Diagnosis strain, dvt, bakery's cyst HPI General Mode of arrival: ambulatory . Date/Time Provider Initiated Documentation: 01/31/19 23:59 . Limitations to Documentation: no limitations . Information obtained by: patient . History of Present Illness 28 year old F presents to the emergency department with the chief complaint of right leg swelling, described as mild, and is localized to the right and lower extremity. Patient reports no radiation. Patient started experiencing this day(s) (1) and it has been other (improved with elevation). Patient did receive the following treatments prior to arrival, other (leg elevation) Related Data Home Medications Medication Instructions Recorded Confirmed PNV cmb#95-ferrous fumarate-FA 1 tab PO DAILY 07/07/18 02/01/19 [] venlafaxine ER 37.5 mg 37.5 mg PO DAILY 09/24/18 02/01/19 capsule,extended release 24 hr hydroxyzine HCl 50 mg tablet 50 mg PO QHS PRN #30 tab 01/02/19 02/01/19 Previous Rx's Medication Instructions Recorded hydroxyzine HCl 50 mg tablet 50 mg PO QHS PRN #30 tab 01/02/19 Allergies Allergy/AdvReac Type Severity Reaction Status Date / Time bupropion HCl Allergy Intermediate Hives Unverified 02/01/19 00:04 [From Wellbutrin] General Stated Complaint: Orthopedic KYLAH: 3 Review of Systems Review of Systems All systems reviewed & are unremarkable except as noted in HPI and below Constitutional Denies fever(s) and Denies weakness Cardiovascular Denies chest pain and Denies dyspnea Respiratory Denies dyspnea Gastrointestinal Denies abdominal pain Neurologic Denies weakness PFSH Medical History Subchorionic hematoma (Acute) Vaginal bleeding during (Acute) Low lying placenta nos or without hemorrhage, second trimester (Acute) Anxiety (Acute) Other antepartum hemorrhage, first trimester (Acute) Surgical History Ligation of fallopian tube (06/07/16) excision of keloid on chest Social History Smoking/Tobacco Use Status: Never Alcohol Intake: former Drug use: Never Substance use type: does not use Household members: significant other and children Number of Children: 3 current occupation: Hairdresser Do you feel safe at home: Yes Do you feel safe in your relationship?: Yes Additional Social history: FOB- [place]. He has 3 children. Female Reproductive History Menstrual Age of Menarche: 11 Duration of menses: 3-5 days control method: permanent sterilization (ivf for this .) History History 5 Para 3 Hx # Term Pregnancies 3 Multiple births 0 Hx # Pregnancies 0 Ectopic pregnancies 0 AB induced 0 Hx Number of Living Children 3 AB spontaneous 1 Course Vital Signs Temperature 36.0 C L 02/01/19 00:01 Pulse 95 H 02/01/19 00:01 Respiratory Rate 18 02/01/19 00:01 Blood Pressure 136/82 02/01/19 00:01 Pulse Oximetry 97 02/01/19 00:01 Temperature 36.0 C L 02/01/19 00:01 Temperature Source Skin 02/01/19 00:01 Pulse 95 H 02/01/19 00:01 Respiratory Rate 18 02/01/19 00:01 Respiratory Effort Non-Labored 02/01/19 00:03 Blood Pressure 136/82 02/01/19 00:01 Blood Pressure Position Sitting 02/01/19 00:01 Pulse Oximetry 97 02/01/19 00:01 Oxygen Delivery Method Room Air 02/01/19 00:01 Oxygen Flow Rate 0 02/01/19 00:01 Pain Level 7 02/01/19 00:09
== END 2019-02-01 00:20 | disposition home or self-care (01) ==
PROVIDERS: Emergency Provider Emergency Medicine; PCP Physician Assistant Medical
DX: M79.661 Pain in right lower leg; R22.41 Localized swelling, mass and lump, right lower limb; Z3A.36 36 weeks gestation of pregnancy
CPT/HCPCS: 99281; 99284; 99282

== ENCOUNTER 2019-02-01 11:30 | Observation (INO) | payer MEDICAID, SELFPAY ==
--- NOTE | 2019-02-01 18:34 | DI.US_ITS ---
SYMPTOMS/DIAGNOSIS: PAIN, EDEMA RLE RIGHT LOWER EXTREMITY ULTRASOUND: The deeps veins of the right lower extremity show normal compression, augmentation and color flow. There is no evidence of a deep venous thrombus. The saphenofemoral junction is patent. There is edema seen in the soft tissues about the ankle. IMPRESSION: No evidence of a right lower extremity deep venous thrombus.
--- NOTE | 2019-02-01 19:07 | DI.VRAD_ITS ---
EXAM: US Duplex Right Lower Extremity Veins, Limited EXAM DATE/TIME: 02/01/2019 5:18 PM CLINICAL HISTORY: 28 years old, female; Leg, lower; Right; Patient HX: PT 38 weeks , recent pain and edema rle TECHNIQUE: Imaging protocol: Real-time Duplex ultrasound of the Right Lower Extremity with 2-D valdez scale, color Doppler flow and spectral waveform analysis. Limited exam was focused on the right lower extremity veins. COMPARISON: No relevant prior studies available. FINDINGS: Right deep veins: Unremarkable. The common femoral, femoral, proximal profunda femoral and popliteal veins are patent without thrombus. Normal Doppler waveforms. Normal compressibility and/or augmentation response. Right superficial veins: Unremarkable. Saphenofemoral junction is patent without thrombus. Soft tissues: Unremarkable. IMPRESSION: There is mild edema at the ankle but no evidence of deep vein thrombosis. Dictated and Authenticated by: David Wynne MD. Ordering:WINSTON Teixeira MD
== END 2019-02-01 19:05 | disposition home or self-care (01) ==
PROVIDERS: Admitting Provider Obstetrics & Gynecology; PCP Physician Assistant Medical; Visit Provider Obstetrics & Gynecology
DX: O14.93 Unspecified pre-eclampsia, third trimester (principal); Z3A.37 37 weeks gestation of pregnancy; M79.661 Pain in right lower leg
CPT/HCPCS: 99211; 59025; 93971; G0378

== ENCOUNTER 2019-02-06 09:15 | Outpatient (CLI) | payer MEDICAID, SELFPAY ==
[2019-02-06 10:01] LABS: HCT 36.1 % (36.0-46.0); HGB 11.8 g/dL (12.0-15.5); Mean Corp. HGB Concentration 32.7 g/dL (32.0-36.0); Mean Corpuscular Hemoglobin 29.1 pg (27.0-33.0); Mean Corpuscular Volume 88.9 fL (80-95); Mean Platelet Volume 11.8 fL (8.0-11.0); Platelet Count 191 x1000/uL (130-400); RBC 4.06 m/cumm (4.00-5.20); RBC Distribution Width 14.7 % (11.7-14.6)
[2019-02-06 10:35] LABS: ALT 22 U/L (12-78); AST 21 U/L (15-37); Albumin 1.9 g/dL (3.4-5.0); Alkaline Phosphatase 163 U/L (46-116); Anion Gap 14.5 mmol/L (3-11); BUN 8 mg/dL (7-18); Bilirubin, Total 0.2 mg/dL (0.2-1.0); CO2 19.5 mmol/L (21.0-32.0); CREATININE 0.75 mg/dL (0.55-1.02); Calcium 8.7 mg/dL (8.5-10.1); Chloride 103 mmol/L (98-107); Glucose 127 mg/dL (70-100); Potassium 3.9 mmol/L (3.5-5.1); Sodium 137 mmol/L (136-145); Total Protein 6.2 g/dL (6.4-8.2); Uric Acid 4.8 mg/dL (2.6-6.0)
== END 2019-02-06 09:35 ==
PROVIDERS: PCP Physician Assistant Medical; Visit Provider Obstetrics & Gynecology Gynecology
DX: O13.3 Gestational [pregnancy-induced] hypertension without significant proteinuria, third trimester
CPT/HCPCS: 36415; 80053; 82950; 85027; 84550

== ENCOUNTER 2019-02-10 17:08 | Inpatient (IN) | payer MEDICAID, SELFPAY ==
[2019-02-10] MEDS: Normal Saline Flush 10 ML SYR IVP (21:05)
[2019-02-10] MEDS: Zolpidem 5 MG TAB 10 MG PO (22:08)
[2019-02-11 05:15] LABS: HCT 32.3 % (36.0-46.0); HGB 10.6 g/dL (12.0-15.5); Mean Corp. HGB Concentration 32.8 g/dL (32.0-36.0); Mean Corpuscular Volume 88.3 fL (80-95); Mean Platelet Volume 11.7 fL (8.0-11.0); Platelet Count 178 x1000/uL (130-400); RBC 3.66 m/cumm (4.00-5.20); RBC Distribution Width 14.6 % (11.7-14.6); White Blood Cell Count 9.93 k/cumm (4.4-10.8)
[2019-02-11] MEDS: Lactated Ringers 1,000 ML 125 ML IV ×2 (06:34→13:46)
[2019-02-11] MEDS: Normal Saline Flush 10 ML SYR IVP (06:34)
[2019-02-11] MEDS: Acetaminophen 325 MG TAB PO (08:42)
[2019-02-11] MEDS: fentaNYL 100 MCG/2 ML VIAL (11:16)
[2019-02-11] MEDS: Bupivacaine 0.25% Pres-Free 30 ML VIAL ×2 (11:16→17:11)
[2019-02-11] MEDS: Methylergonovine 0.2 MG/ML VIAL IM (12:15)
[2019-02-11] MEDS: Carboprost 250 MCG/ML AMP IM (12:20)
[2019-02-11] MEDS: Ondansetron 4 MG/2 ML VIAL IVP (13:30)
[2019-02-11] MEDS: Normal Saline 500 ML 1000 ML IV (15:15)
[2019-02-11 15:30] LABS: HCT 27.6 % (36.0-46.0); HGB 8.9 g/dL (12.0-15.5); Mean Corp. HGB Concentration 32.2 g/dL (32.0-36.0); Mean Corpuscular Hemoglobin 28.9 pg (27.0-33.0); Mean Corpuscular Volume 89.6 fL (80-95); Mean Platelet Volume 10.9 fL (8.0-11.0); Platelet Count 211 x1000/uL (130-400); RBC 3.08 m/cumm (4.00-5.20); RBC Distribution Width 14.6 % (11.7-14.6)
[2019-02-11 15:36] LABS: White Blood Cell Count 28.99 k/cumm (4.4-10.8)
[2019-02-11] MEDS: Sodium Citrate 30 ML CUP (16:00)
--- NOTE | 2019-02-11 16:01 | HPE_ITS ---
Date of service: 02/11/19 Time of Service: 16:02 Assessment and Plan (1) hemorrhage: Current visit: Yes Status: Acute Plans to proceed to the OR for D&C and inspection of the uterine cavity. History of Present Illness Chief Complaint: hemorrhage Narrative: Patient is a 29-year-old G4 now P4 female who underwent a vaginal delivery approximately 3 hours ago. Her delivery was uncomplicated she had a viable female infant over intact perineum she had uterine atony that resulted in a blood loss of approximately 500 cc which responded to uterine massage accompanied by 1 dose of traxemic acid, 1 dose of Hemabate, and 1 dose of IM Methergine. I inspected the placenta at the time of delivery it was intact with a normal configuration and three-vessel cord. I was notified by the medical staff services coordinator approximately 1515 that the patient had gotten out of bed had become lightheaded tachycardic and past 300 cc of organized blood clot. On examination there is blood clot in the vaginal vault the inspection of the cervix does not reveal a laceration. The uterus is small mobile and firm. Attempt at placing a battery balloon was unsuccessful. The patient was too uncomfortable despite use of nitrous oxide. A normal saline bolus has been ordered CBC obtained type and screen is current. Plan at this time is to bring her to the main OR and to do a D&C and inserted back the balloon if needed. Informed consent was obtained the patient was informed of the reason for the procedure the risk of infection the risk of additional bleeding and damage to the uterus requiring hysterectomy. Her questions were answered. [facility] Medical History Subchorionic hematoma (Acute) Vaginal bleeding during (Acute) Low lying placenta nos or without hemorrhage, second trimester (Acute) Anxiety (Acute) Other antepartum hemorrhage, first trimester (Acute) Surgical History Ligation of fallopian tube (06/07/16) excision of keloid on chest Social History Smoking/Tobacco Use Status: Never Alcohol Intake: former Drug use: Never Substance use type: does not use Household members: significant other and children Number of Children: 3 current occupation: Hairdresser Do you feel safe at home: Yes Do you feel safe in your relationship?: Yes Additional Social history: FOB- [place]. He has 3 children. Female Reproductive History Menstrual Age of Menarche: 11 Duration of menses: 3-5 days control method: permanent sterilization (ivf for this .) History History 5 Para 3 Hx # Term Pregnancies 3 Multiple births 0 Hx # Pregnancies 0 Ectopic pregnancies 0 AB induced 0 Hx Number of Living Children 3 AB spontaneous 1 Meds Home Medications Medication Instructions Recorded Confirmed Type PNV cmb#95-ferrous fumarate-FA 1 tab PO DAILY 07/07/18 02/10/19 History [] venlafaxine ER 37.5 mg 37.5 mg PO DAILY 09/24/18 02/10/19 History capsule,extended release 24 hr hydroxyzine HCl 50 mg tablet 50 mg PO QHS PRN #30 tab 01/02/19 02/10/19 Rx Allergies Allergy/AdvReac Type Severity Reaction Status Date / Time bupropion HCl Allergy Intermediate Hives Unverified 02/06/19 08:45 [From Wellbutrin] Exam Const General: ill appearing Orientation: alert, awake and oriented x3 Resp Auscultation: clear to auscultation bilaterally Cardio Palpation: normal PMI Rate: tachycardic General: other (As described above) Skin General skin exam: no rashes or lesions noted (Pale) Extrem General: normal to inspection, full ROM and normal capillary refill Results Labs : 02/11/19 15:21 Laboratory Results - last 24 hr 02/11/19 02/11/19 02/11/19 05:05 06:10 15:21 WBC 9.93 28.99 H* D RBC 3.66 L 3.08 L Hgb 10.6 L 8.9 L Hct 32.3 L 27.6 L MCV 88.3 89.6 MCH 29.0 28.9 MCHC 32.8 32.2 RDW 14.6 14.6 Plt Count 178 211 MPV 11.7 H 10.9 Patient ABO/Rh A Positive Antibody Screen Negative
[2019-02-11 17:34] VITALS: BP 103/62; PULSE 119; RESP 17; TEMP 36.4; O2SAT 99
[2019-02-11 17:39] VITALS: BP 103/51; PULSE 120; RESP 14; TEMP 36.4; O2SAT 99
[2019-02-11 17:44] VITALS: BP 105/53; PULSE 113; RESP 17; TEMP 36.8; O2SAT 98
[2019-02-11 17:49] VITALS: BP 123/75; PULSE 111; RESP 18; TEMP 36.8; O2SAT 98
[2019-02-11] MEDS: Lactated Ringers 500 ML IV (18:35)
[2019-02-11] MEDS: Lidocaine 1% Multi-Dose 20 ML VIAL (18:36)
[2019-02-11 23:11] LABS: HCT 22.6 % (36.0-46.0); HGB 7.1 g/dL (12.0-15.5); Mean Corp. HGB Concentration 31.4 g/dL (32.0-36.0); Mean Corpuscular Hemoglobin 28.5 pg (27.0-33.0); Mean Corpuscular Volume 90.8 fL (80-95); Mean Platelet Volume 10.7 fL (8.0-11.0); Platelet Count 184 x1000/uL (130-400); RBC 2.49 m/cumm (4.00-5.20); RBC Distribution Width 14.4 % (11.7-14.6); White Blood Cell Count 19.87 k/cumm (4.4-10.8)
[2019-02-12] VITALS (15 sets, daily range): BP systolic 92–117; BP diastolic 52–66; PULSE 100–112; RESP 16–18; TEMP 36.7–36.9; O2SAT 97–100
[2019-02-12] MEDS: Lactated Ringers 1,000 ML 120 ML IV (00:05)
[2019-02-12] MEDS: diphenhydrAMINE 25 MG CAP PO (00:27)
[2019-02-12] MEDS: Acetaminophen 325 MG TAB PO ×3 (00:28→17:45)
[2019-02-12 08:06] LABS: HCT 25.7 % (36.0-46.0); HGB 8.4 g/dL (12.0-15.5); Mean Corp. HGB Concentration 32.7 g/dL (32.0-36.0); Mean Corpuscular Hemoglobin 28.8 pg (27.0-33.0); Mean Platelet Volume 11.2 fL (8.0-11.0); Platelet Count 154 x1000/uL (130-400); RBC 2.92 m/cumm (4.00-5.20); RBC Distribution Width 14.9 % (11.7-14.6); White Blood Cell Count 12.93 k/cumm (4.4-10.8)
[2019-02-12] MEDS: Venlafaxine 37.5 MG CAPCR PO (08:57)
[2019-02-12] MEDS: Acetaminophen 325 MG TAB 650 MG PO (11:45)
--- NOTE | 2019-02-12 12:19 | ROE_ITS ---
Date of service: 02/12/19 Time of Service: 12:07 Operative Note DATE OF PROCEDURE: 02/11/19 PRE-OP DIAGNOSIS: hemorrhage POST-OP DIAGNOSIS: same PROCEDURE: Uterine curettage and repair of cervical laceration SURGEON: Shania Gardner HUMAN RESOURCES OPERATIONS MANAGER: Percy Bethea HUMAN RESOURCES OPERATIONS MANAGER: Kathryn Huynh ANESTHESIA: AVERY ESTIMATED BLOOD LOSS: 100 PATHOLOGY: none sent COMPLICATIONS: None Patient was transported to: PACU Patient's condition: stable Indications: 32-year-old G4, P4 female who underwent a spontaneous vaginal delivery several hours earlier in the day was noted to have continued bleeding and passage of clots after she had been successfully treated for a hemorrhage secondary to uterine atony. Is unable to visualize the cervix with the patient in the dorsolithotomy position in the delivery room. Decision was made to proceed to the OR for analgesia and better visualization. Findings: Uterus was firm and had involuted appropriately. The uterus sounded to 7 cm. Minimal tissue was returned with the sharp curettage of the uterine cavity. The cervix was edematous and had bleeding at the 2:00 and 6:00 positions. Procedure Description: Patient was taken to the operating room where she was placed in the dorsal supine position. She was prepped and draped in the usual sterile fashion a surgical timeout was performed. Plasencia catheter was inserted to gravity drainage she received Ancef IV and had SCDs in place. She was then placed in the dorsolithotomy position with in yellowfin stirrups in a neurologically neutral position. A bivalve speculum was placed into the vagina and the vagina and uterus inspected with the above-noted findings. Cervix did not require dilatation after the uterus was sounded a banjo curette was used to curettage all 4 quadrants of the uterine cavity without evidence of tissue returned. The bivalve speculum was removed. A longbilled weighted speculum was then placed in the vagina and retractors were used to elevate the anterior wall of the vagina I will the cervix is brought forward with pressure on the suprapubic region. This allowed visualization and the ability to place a series of running sutures of 3-0 Vicryl at the 2 and 6:00 positions respectively. A 20 mm Correa dilator was in the endocervix during the repair to guarantee patency of the endocervical canal. Once this sutures were in place the cervix was carefully inspected and noted be hemostatic. There is no evidence of bright red blood through the endocervical canal. The vaginal pack was placed patient was taken out of dorsolithotomy position placed into supine position and the patient then awakened extubated and transferred to recovery area in stable condition
--- NOTE | 2019-02-12 16:40 | PGE_ITS ---
Date of Service Date of service: 02/12/19 Time of Service: 17:33 Assessment and Plan (1) hemorrhage: Status: Resolved (2) Cervical laceration: Status: Resolved (3) At risk for hypothyroidism: Status: Deleted Subjective Patient reports: feels better, tolerating a regular diet and voiding w/o difficulty (Once Plasencia catheter was removed.) Exam Narrative Exam Narrative: Patient is a 29-year-old she for now P4 female who underwent a spontaneous vaginal delivery on 01/11/2019 that was complicated by an immediate hemorrhage secondary to uterine atony. The atony was treated with vigorous uterine massage and and injections of Hemabate, Methergine, IV oxytocin and IV Tranexamic Acid. Her EBL prior to control was obtained was ~ 800cc. Approximately 2 and half hours later patient was being assisted to the toilet and had a vasovagal episode and passed approximately 300 cc of organized clot from the vagina. She returned to bed and underwent a speculum exam. It was unclear the source of the bleeding and she was transferred to the operating room where she underwent general endotracheal anesthesia had an exam under anesthesia with a curettage of the uterine cavity with very little tissue returned. Deedee ral bleeding sites along the cervix were noted and were suture-ligated with hemostasis achieved. She had a vaginal packing and Lpasencia catheter overnight. Her H&H had declined and she was symptomatic with tachycardia and received 2 units of packed red blood cells without complications. On postop day 1 Plasencia catheter was discontinued she was able to void spontaneously vaginal pack was removed for moderate amount of serosanguineous drainage. She is continued to have moderate lochia no evidence of clotting. She is been out of bed with assistance has been successfully breast-feeding a repeat lab is ordered for 1800 hrs. this evening. Const General: comfortable and other (Pale) Nutritional Appearance: well nourished Orientation: alert and awake Chest Chest: normal inspection of the chest (Currently breast-feeding her infant) Cardio Rate: regular rate Rhythm: regular rhythm Pulses: normal peripheral pulses Skin General skin exam: scars (Chest) Extrem General: normal to inspection, full ROM, capillary refill normal and no pedal edema (1+ nonpitting edema pretibial bilateral) Objective Objective Clinical Data: Abnormal lab results 02/11/19 02/11/19 02/12/19 Range/Units 06:10 22:56 07:58 WBC 19.87 H D 12.93 H D (4.4-10.8) k/cumm RBC 2.49 L 2.92 L (4.00-5.20) m/cumm Hgb 7.1 L 8.4 L (12.0-15.5) g/dL Hct 22.6 L 25.7 L (36.0-46.0) % MCHC 31.4 L (32.0-36.0) g/dL RDW 14.9 H (11.7-14.6) % MPV 11.2 H (8.0-11.0) fL Crossmatch See Detail Vital Signs Temperature 98.1 F 02/12/19 04:55 Pulse 104 H 02/12/19 05:25 Respiratory Rate 16 02/12/19 05:25 Blood Pressure 96/54 L 02/12/19 05:25 Pulse Oximetry 98 02/12/19 05:25 Respiratory End-tidal CO2 30 02/11/19 17:49 Oxygen Delivery Method Room Air 02/12/19 05:25 Oxygen Flow Rate 0 02/12/19 05:25 Pain Level 6 02/12/19 11:45 Intake & Output 02/11/19 02/12/19 02/12/19 23:59 11:59 23:59 Intake Total 1103.6 / 1720.267 598 / 598 Balance 1103.6 / 1720.267 598 / 598 Intake: IV 1103.6 / 1720.267 98 / 98 Blood Product 500 / 500 Rbc Leuko Reduced Unit 250 / 250 [id number] Rbc Leuko Reduced Unit 250 / 250 [id number] Other: Urine Color Yellow Urine Appearance Clear Laboratory Results WBC 12.93 k/cumm (4.4-10.8) H D 02/12/19 07:58 RBC 2.92 m/cumm (4.00-5.20) L 02/12/19 07:58 Hgb 8.4 g/dL (12.0-15.5) L 02/12/19 07:58 Hct 25.7 % (36.0-46.0) L 02/12/19 07:58 MCV 88.0 fL (80-95) 02/12/19 07:58 MCH 28.8 pg (27.0-33.0) 02/12/19 07:58 MCHC 32.7 g/dL (32.0-36.0) 02/12/19 07:58 RDW 14.9 % (11.7-14.6) H 02/12/19 07:58 Plt Count 154 x1000/uL (130-400) 02/12/19 07:58 MPV 11.2 fL (8.0-11.0) H 02/12/19 07:58 Patient ABO/Rh A Positive 02/11/19 06:10 Antibody Screen Negative 02/11/19 06:10 Crossmatch See Detail 02/11/19 06:10
[2019-02-12] MEDS: Ibuprofen 600 MG TAB PO (17:47)
[2019-02-12 18:22] LABS: HCT 24.5 % (36.0-46.0); Mean Corp. HGB Concentration 32.7 g/dL (32.0-36.0); Mean Corpuscular Hemoglobin 28.8 pg (27.0-33.0); Mean Corpuscular Volume 88.1 fL (80-95); Mean Platelet Volume 11.2 fL (8.0-11.0); Platelet Count 161 x1000/uL (130-400); RBC 2.78 m/cumm (4.00-5.20); RBC Distribution Width 15.4 % (11.7-14.6); White Blood Cell Count 14.75 k/cumm (4.4-10.8)
[2019-02-13] MEDS: Venlafaxine 37.5 MG CAPCR PO (09:42)
[2019-02-13] MEDS: Hamamelis Leaf/Glycerin 100 EACH BOX PR (09:51)
[2019-02-13] MEDS: Ibuprofen 600 MG TAB PO ×2 (09:52→17:09)
[2019-02-13] MEDS: Acetaminophen 325 MG TAB 650 MG PO ×2 (09:52→17:09)
[2019-02-13] MEDS: Docusate Sodium 100 MG CAP PO (09:53)
--- NOTE | 2019-02-13 12:56 | W.PM.DS.N ---
Date of service: 02/13/19 Time of Service: 12:56 DS: Diagnosis Discharge Diagnosis (1) hemorrhage: Status: Acute (2) Cervical laceration: Status: Acute (3) Vaginal delivery: Status: Acute (4) At risk for hypothyroidism: Status: Acute Discharge Plan Disposition Patient Disposition: HOME Condition: Fair Discharge Details Reason For Visit: IUP AT TERM Admit Date/Time: 02/10/19 17:08 Admit Provider: Shania Gardner Attending Provider: Shania Gardner Primary Care Provider: Yuan Delgado Hospital Course Hospital Course: Patient is a 29-year-old P4 female who underwent a spontaneous vaginal delivery on 01/11/2019 that was complicated by an immediate hemorrhage secondary to uterine atony. The atony was treated with vigorous uterine massage and and injections of Hemabate, Methergine, IV oxytocin and IV Tranexamic Acid. Her EBL prior to control was obtained was ~ 800cc. Approximately 2 and half hours later patient was being assisted to the toilet and had a vasovagal episode and passed approximately 300 cc of organized clot from the vagina. She returned to bed and underwent a speculum exam. It was unclear the source of the bleeding and she was transferred to the operating room where she underwent general endotracheal anesthesia had an exam under anesthesia with a curettage of the uterine cavity with very little tissue returned. Several bleeding sites along the cervix were noted and were suture-ligated with hemostasis achieved. She had a vaginal packing and Plasencia catheter overnight. Her H&H had declined and she was symptomatic with tachycardia and received 2 units of packed red blood cells without complications. On postop day 1 Plasencia catheter was discontinued she was able to void spontaneously vaginal pack was removed for moderate amount of serosanguineous drainage. She is continued to have moderate lochia no evidence of clotting. She is been out of bed with assistance has been attempting to breast-feed. Repeat CBC showed minimal change and no further testing was performed. Postop day 2 she was able to perform ADLs, no complaints of headache. There was difficulty with getting her to latch and subsequently decision was made to have her patient remain in the hospital another day for breast-feeding assistance. /postop day 3 she was successfully breast-feeding she was discharged home with instructions [facility]. She had mentioned being diagnosed with subclinical hypothyroidism during her IVF cycle a TSH reflex free T4 was obtained prior to discharge. Lastly a repeat CBC was performed. Patient will continue supplemental iron daily and vitamin and her venlafaxine. Home Meds and New Rx's Prescriptions: No Action venlafaxine [Effexor XR] 37.5 mg capsule,extended release 24hr 37.5 mg PO DAILY RF: 0 hydroxyzine HCl 50 mg tablet 50 mg PO QHS PRN (Reason: insomnia) Qty: 30 RF: 0 PNV cmb#95-ferrous fumarate-FA [] 28 mg iron- 800 mcg Tablet 1 tab PO DAILY RF: 0 Discharge Instructions Additional Instructions: Begin ferrous gluconate 300 mg 1 tablet daily. Stand Alone Forms: BC Instructions, BC Post Vaginal Deliver Activity:: Activity as Tolerated Equipment/Supplies:: No Equipment Needed Diet:: As Tolerated Discharge Data Discharge Date/Time-TO BE ENTERED AT DEPARTURE: 02/14/19 09:02 Exam Const General: comfortable Orientation: alert, awake and oriented x3 Resp Auscultation: clear to auscultation bilaterally Cardio Palpation: normal PMI Rate: tachycardic Skin General skin exam: no rashes or lesions noted (Pale) Extrem General: normal to inspection, full ROM and normal capillary refill Psych Appearance: grossly normal Mental Status: mental status grossly normal Mood: congruent mood DS: Data Vitals/I&O Vitals and I&O: Vital Signs Temperature 98.1 F 02/12/19 04:55 Pulse 104 H 02/12/19 05:25 Respiratory Rate 16 02/12/19 05:25 Blood Pressure 96/54 L 02/12/19 05:25 Pulse Oximetry 98 02/12/19 05:25 Respiratory End-tidal CO2 30 02/11/19 17:49 Oxygen Delivery Method Room Air 02/12/19 05:25 Oxygen Flow Rate 0 02/12/19 05:25 Pain Level 5 02/13/19 09:52 Labs on day of discharge: Labs from last 24 hours 02/12/19 18:00 WBC 14.75 H RBC 2.78 L Hgb 8.0 L Hct 24.5 L MCV 88.1 MCH 28.8 MCHC 32.7 RDW 15.4 H Plt Count 161 MPV 11.2 H PFSH Medical History At risk for hypothyroidism (Acute) Subchorionic hematoma (Acute) Vaginal bleeding during (Acute) Low lying placenta nos or without hemorrhage, second trimester (Acute) Anxiety (Acute) Other antepartum hemorrhage, first trimester (Acute) Surgical History Ligation of fallopian tube (06/07/16) excision of keloid on chest Social History Smoking/Tobacco Use Status: Never Alcohol Intake: former Drug use: Never Substance use type: does not use Household members: significant other and children Number of Children: 3 current occupation: Hairdresser Do you feel safe at home: Yes Do you feel safe in your relationship?: Yes Additional Social history: FOB- [place]. He has 3 children. Female Reproductive History Menstrual Age of Menarche: 11 Duration of menses: 3-5 days control method: permanent sterilization (ivf for this .) History History 5 Para 3 Hx # Term Pregnancies 3 Multiple births 0 Hx # Pregnancies 0 Ectopic pregnancies 0 AB induced 0 Hx Number of Living Children 3 AB spontaneous 1
[2019-02-14 09:13] LABS: HCT 24.1 % (36.0-46.0); HGB 7.6 g/dL (12.0-15.5); Mean Corp. HGB Concentration 31.5 g/dL (32.0-36.0); Mean Corpuscular Hemoglobin 28.3 pg (27.0-33.0); Mean Corpuscular Volume 89.6 fL (80-95); Mean Platelet Volume 10.1 fL (8.0-11.0); Platelet Count 189 x1000/uL (130-400); RBC 2.69 m/cumm (4.00-5.20); RBC Distribution Width 15.6 % (11.7-14.6)
[2019-02-14 10:01] LABS: TSH (W/Ref FT4) 5.07 uIU/mL (0.358-3.74)
[2019-02-14] MEDS: Venlafaxine 37.5 MG CAPCR PO (10:06)
[2019-02-14 10:28] LABS: FREE T4 0.96 ng/dL (0.76-1.46)
== END 2019-02-14 12:04 | disposition home or self-care (01) | DRG 768 ==
PROVIDERS: Admitting Provider Obstetrics & Gynecology Gynecology; PCP Physician Assistant Medical; Visit Provider Obstetrics & Gynecology Gynecology
PROC: 10E0XZZ Delivery of Products of Conception, External Approach (ICD-10-PCS; CPT 59841; principal; 2019-02-11 16:00)
DX: O72.1 Other immediate postpartum hemorrhage (principal); Z37.0 Single live birth; O71.3 Obstetric laceration of cervix; D62 Acute posthemorrhagic anemia; O32.6XX0 Maternal care for compound presentation, not applicable or unspecified; Z3A.38 38 weeks gestation of pregnancy; R00.0 Tachycardia, unspecified; O99.344 Other mental disorders complicating childbirth; O99.284 Endocrine, nutritional and metabolic diseases complicating childbirth; F32.9 Major depressive disorder, single episode, unspecified; O90.81 Anemia of the puerperium; E02 Subclinical iodine-deficiency hypothyroidism
CPT/HCPCS: 59160; 57720; 36415; 36430; 85027; 86850; 86900; 86901; 86920; 99221; 99238; NC; 84439; 84443; J2210; J2405; J3010; J3490; P9016

== ENCOUNTER 2019-04-25 14:38 | Emergency (ER) | payer MEDICAID, SELFPAY ==
[2019-04-25 14:42] VITALS: BP 128/71; PULSE 130; RESP 18; TEMP 36.6; O2SAT 100
--- NOTE | 2019-04-25 14:50 | NUR.NOTE ---
Nursing Note: pt brought in by sister for suicidal ideation. Pt states that she has been having suicidal thoughts for one week with no specific plan. pt states that she is 9 weeks post , and last night she found what she believed to be fentanyl in her significant others possession. Pt states that she snorted it, and it was the first time that she has ever used an illicit substance. pt states that her intention when she snorted the Fentanyl was not to , but states, I did not care what happened. pt sister had to speak for patient at times, because pt was tearful and could not speak. pt provided water. MD dinero at bedside to assess.
--- NOTE | 2019-04-25 14:53 | ED.GENADUL_ITS ---
Discharge Plan Disposition Patient Disposition: HOME Condition: Stable Discharge Details Chief Complaint: PsychEval Clinical Impression: Post depression Primary Care Provider: Yuan Delgado ED Provider: David Tan Home Meds and New Rx's Prescriptions: No Action venlafaxine [Effexor XR] 37.5 mg capsule,extended release 24hr 75 mg PO DAILY RF: 0 levothyroxine 50 mcg capsule 50 mcg PO DAILY Qty: 60 RF: 0 PNV cmb#95-ferrous fumarate-FA [] 28 mg iron- 800 mcg Tablet 1 tab PO DAILY RF: 0 Discharge Instructions Instructions: Depression (ED) Additional Instructions: follow up with mental health as they have planned with you if you feel your symptoms are worsening [facility] or return to the emergency department Medical Decision Making 29 yo female who comes in with depression and thoughts of wanting to harm herself. She has no specific plan, but has been very depressed recently and has no prior hx of depression per pt. she did have a child earlier this summer. She denies actually trying to harm herself. HAs been drinking last drink last night and used drugs for the first time, thinks it was fentanyl that she snorted last night. She has no evidence of self harm on exam, caox4, negative ros otherwise other than depression/si and normal neuro exam, hr on my exam 90. Suspect post depression, no findings on exam or hx to suggest underlying medical processess. She is medically cleared to see mental health pt seen by mental health and they have set up safety plan and are going to visit her each day this weekend and she is being d/c'd with her sister. I feel this is reasonable given no plan to harm herself. Return precautions given Differential Diagnosis depression, post depression HPI General Mode of arrival: ambulatory . Date/Time Provider Initiated Documentation: 04/25/19 14:42 . Limitations to Documentation: no limitations . Information obtained by: patient . History of Present Illness 29 year old F presents to the emergency department with the chief complaint of thoguhts of self harm, described as moderate, Patient started experiencing this day(s) (3) and it has been constant. No relieving factors improve symptom(s), No exacerbating factors reported . Patient did receive the following treatments prior to arrival, none Related Data Home Medications Medication Instructions Recorded Confirmed PNV cmb#95-ferrous fumarate-FA 1 tab PO DAILY 07/07/18 03/07/19 [] venlafaxine 37.5 mg 75 mg PO DAILY 09/24/18 04/25/19 capsule,extended release 24 hr levothyroxine 50 mcg capsule 50 mcg PO DAILY #60 cap 02/14/19 04/25/19 Previous Rx's Medication Instructions Recorded levothyroxine 50 mcg capsule 50 mcg PO DAILY #60 cap 02/14/19 Allergies Allergy/AdvReac Type Severity Reaction Status Date / Time bupropion HCl Allergy Intermediate Hives Unverified 03/07/19 14:37 [From Wellbutrin] General Stated Complaint: PsychEval KYLAH: 2 Review of Systems Review of Systems All systems reviewed & are unremarkable except as noted in HPI and below Constitutional Denies chills, Denies fever(s) and Denies weakness Cardiovascular Denies chest pain and Denies dyspnea Respiratory Denies cough and Denies dyspnea Gastrointestinal Denies abdominal pain, Denies nausea and Denies vomiting Genitourinary Denies dysuria Musculoskeletal Denies joint swelling Integumentary/Breasts Denies rash Neurologic Denies weakness [facility] Medical History (Updated 03/30/19 @ 12:16 by Shania Gardner MD) Anxiety At risk for hypothyroidism (Resolved) Hypothyroidism (acquired) (Acute) Low lying placenta nos or without hemorrhage, second trimester (Resolved) Other antepartum hemorrhage, first trimester (Resolved) (Resolved) Subchorionic hematoma (Resolved) Vaginal bleeding during (Resolved) Surgical History (Updated 03/30/19 @ 11:53 by Shania Gardner MD) excision of keloid on chest Ligation of fallopian tube (Resolved 06/07/16) Social History (Updated 11/27/18 @ 22:06 by Shania Gardner MD) Smoking/Tobacco Use Status: Never Alcohol Intake: former Drug use: Never Substance use type: does not use Household members: significant other and children Number of Children: 3 current occupation: Hairdresser Do you feel safe at home: Yes Do you feel safe in your relationship?: Yes Additional Social history: FOB- [place]. He has 3 children. Female Reproductive History Menstrual Age of Menarche: 11 Duration of menses: 3-5 days control method: permanent sterilization (ivf for this .) History History 5 Para 4 Hx # Term Pregnancies 4 Multiple births 0 Hx # Pregnancies 0 Ectopic pregnancies 0 AB induced 0 Hx Number of Living Children 4 AB spontaneous 1 Past Pregnancies Del. Date GA/Weeks # Outcome Route Wgt Sex Labor Lgth Anesthes ia Location Prov Complic 02/11/19 39 No Successful vaginal 3.374 kg Female Shania Gardner hemorrhage Delivery Date: 02/11/19 On 03/07/19 @ 07:50 Giselle Collier PROM; Plasencia balloon placed as cervical ripening agent; hx. of Subchorionic bleeding during ; Coupound presentation of hand under chin.; Post hemorrhage, uterine atony, IM oxytocin, methergine, hemabate and infusion of Tranexamic Acid; D&C in OR, several bleeding sites along cervix, suture ligated Exam Const General: no acute distress Orientation: alert HENMT Head: normal to inspection Ears: external ears normal General nose exam: external nose normal Mouth: moist mucous membranes Eyes General: appearance normal, both eyes and all related structures Neck Neck: normal visual inspection Resp Effort & Inspection: normal respiratory effort and able to speak in complete sentences Cardio Rate: regular rate Skin General skin exam: no rashes or lesions noted Neuro General: alert and oriented x3 Extrem General: normal to inspection Psych Appearance: well kempt Course Vital Signs Temperature 36.6 C 04/25/19 14:42 Pulse 130 H 04/25/19 14:42 Respiratory Rate 18 04/25/19 14:42 Blood Pressure 128/71 04/25/19 14:42 Pulse Oximetry 100 04/25/19 14:42 Temperature 36.6 C 04/25/19 14:42 Temperature Source Skin 04/25/19 14:42 Pulse 130 H 04/25/19 14:42 Respiratory Rate 18 04/25/19 14:42 Blood Pressure 128/71 04/25/19 14:42 Blood Pressure Position Supine 04/25/19 14:42 Pulse Oximetry 100 04/25/19 14:42 Oxygen Delivery Method Room Air 04/25/19 14:42 Oxygen Flow Rate 0 04/25/19 14:42
--- NOTE | 2019-04-25 15:00 | NUR.NOTE ---
Nursing Note: patients possession given to sister at bedside. pt is calm, sister is supportive.
--- NOTE | 2019-04-25 15:19 | NUR.NOTE ---
Nursing Note: mental health at bedside to asses patient.
[2019-04-25 16:33] LABS: Abs Immature Grans 0.02 k/cumm (0.0-0.09); Absolute Basophil Count 0.05 k/cumm (0.0-0.2); Absolute Eosinophil Count 0.07 k/cumm (0.0-0.7); Absolute Lymphocyte Count 1.78 k/cumm (1.2-3.4); Absolute Monocyte Count 0.76 k/cumm (0.11-0.7); Absolute Neutrophil Count 4.55 k/cumm (1.2-6.7); Basophils % 0.7; HCT 35.7 % (36.0-46.0); HGB 10.7 g/dL (12.0-15.5); Immature Grans % 0.3; Lymphocytes % 24.6; Mean Corpuscular Hemoglobin 25.7 pg (27.0-33.0); Mean Corpuscular Volume 85.8 fL (80-95); Mean Platelet Volume 9.4 fL (8.0-11.0); Monocytes % 10.5; Neutrophils % 62.9; Platelet Count 379 x1000/uL (130-400); RBC 4.16 m/cumm (4.00-5.20); RBC Distribution Width 15.4 % (11.7-14.6); White Blood Cell Count 7.23 k/cumm (4.4-10.8)
[2019-04-25 16:49] LABS: ALT 74 U/L (12-78); AST 39 U/L (15-37); Albumin 3.5 g/dL (3.4-5.0); Alkaline Phosphatase 89 U/L (46-116); Anion Gap 8.1 mmol/L (3-11); BUN 8 mg/dL (7-18); Bilirubin, Total 0.2 mg/dL (0.2-1.0); CO2 27.9 mmol/L (21.0-32.0); CREATININE 0.72 mg/dL (0.55-1.02); Chloride 106 mmol/L (98-107); Glucose 100 mg/dL (70-100); Potassium 3.6 mmol/L (3.5-5.1); Sodium 142 mmol/L (136-145); Total Protein 7.6 g/dL (6.4-8.2)
[2019-04-25 16:59] LABS: Salicylate < 2.8 mg/dL (2.8-20.0)
[2019-04-25 17:03] LABS: Acetaminophen < 2 ug/mL (10-30); ETHANOL BLOOD < 3.0 mg/dL (<3)
[2019-04-25 17:31] LABS: TSH (W/Ref FT4) 1.85 uIU/mL (0.36-3.74)
[2019-04-25 17:35] VITALS: BP 131/82; PULSE 99; RESP 16; O2SAT 100
== END 2019-04-25 17:34 | disposition home or self-care (01) ==
PROVIDERS: Emergency Provider Emergency Medicine; PCP Physician Assistant Medical
DX: F53.0 Postpartum depression (principal); R45.851 Suicidal ideations
CPT/HCPCS: 36415; 80053; 80307; 99283; 80320; 80329; 81003; 84443; 85025

== ENCOUNTER 2019-09-19 09:48 | Outpatient (REF) | payer MEDICAID, SELFPAY ==
[2019-09-19 19:21] LABS: Abs Immature Grans 0.01 k/cumm (0.0-0.09); Absolute Basophil Count 0.03 k/cumm (0.0-0.2); Absolute Eosinophil Count 0.16 k/cumm (0.0-0.7); Absolute Lymphocyte Count 1.16 k/cumm (1.2-3.4); Absolute Monocyte Count 0.81 k/cumm (0.11-0.7); Absolute Neutrophil Count 4.22 k/cumm (1.2-6.7); Basophils % 0.5; Eosinophils % 2.5; HCT 37.8 % (36.0-46.0); HGB 11.9 g/dL (12.0-15.5); Immature Grans % 0.2 %; Lymphocytes % 18.2; Mean Corp. HGB Concentration 31.5 g/dL (32.0-36.0); Mean Corpuscular Hemoglobin 27.2 pg (27.0-33.0); Mean Corpuscular Volume 86.3 fL (80-95); Mean Platelet Volume 10.6 fL (8.0-11.0); Monocytes % 12.7; Neutrophils % 65.9; Platelet Count 341 x1000/uL (130-400); RBC 4.38 m/cumm (4.00-5.20); RBC Distribution Width 16.5 % (11.7-14.6); White Blood Cell Count 6.39 k/cumm (4.4-10.8)
[2019-09-19 19:57] LABS: Anion Gap 10.1 mmol/L (3-11); BUN 10 mg/dL (7-18); CO2 27.9 mmol/L (21.0-32.0); Calcium 9.1 mg/dL (8.5-10.1); Chloride 103 mmol/L (98-107); Ferritin 21 ng/mL (8-252); Glucose 84 mg/dL (74-106); Magnesium 1.9 mg/dL (1.8-2.4); Potassium 3.9 mmol/L (3.5-5.1); Sodium 141 mmol/L (136-145)
== END 2019-09-19 10:08 ==
LOC: NCHCN 09:48
PROVIDERS: PCP Physician Assistant Medical; Visit Provider Physician Assistant Medical
DX: G25.81 Restless legs syndrome (principal)
CPT/HCPCS: 80048; 82728; 83735; 85025

== ENCOUNTER 2020-10-07 23:13 | Emergency (ER) | payer MEDICAID, SELFPAY ==
--- NOTE | 2020-10-07 23:16 | ED.GENADUL_ITS ---
Discharge Plan Disposition Patient Disposition: HOME Condition: Good Discharge Details Clinical Impression: URI (upper respiratory infection), Otitis media Primary Care Provider: Yuan Delgado ED Provider: Jorgito Dumont Meds and New Rx's Prescriptions: New amoxicillin-pot clavulanate 875-125 mg tablet 1 tab PO BID Qty: 19 RF: 0 Discharge Instructions Instructions: Ear Infection (ED), Upper Respiratory Infection (ED) Additional Instructions: You must quarantine until Covid testing is negative and you are feeling better without using Tylenol or Motrin. Take the antibiotic for your ear infection. Local care to your ears as we discussed. Follow-up with primary care next week if not better. Return to ED for spiking fevers, chest pain, shortness of breath , mental status changes, other concerns. Stand Alone Forms: PENDING COVID-19 TESTING Referrals: Yuan Delgado PA [Primary Care Provider] - Medical Decision Making Patient looks well. She is a little tachycardic. She is afebrile with normal oxygen saturation. Chest x-ray is negative per my review. She has no Covid exposure, travel and has avoided large gatherings. Likely viral URI not Covid. However, will need Covid testing and quarantine until negative results and feeling better. She does have left acute otitis and will be started on Augmentin. A portion of both external ears are somewhat erythematous and swollen. No abscess. Recommend local care and topical antibiotic. Follow-up with primary care next week if not better. Return to ED for mental status changes, chest pain, shortness of breath, other concerns. HPI General Mode of arrival: ambulatory . Date/Time Provider Initiated Documentation: 10/07/20 23:15 . Limitations to Documentation: no limitations . Information obtained by: patient, RN notes reviewed and old records reviewed . HPI Narrative: Patient presents to ED with left ear pain. Patient reports being ill for about 1 week with cough, slight shortness of breath, chills but no fever, some body aches. She reports change in taste but no loss of taste or smell. In the last 24 hours she has developed congestion, runny nose, left ear pain. She also has some pain and discomfort on the outside of both ears. She has no chest pain. She has no GI symptoms. She does not smoke. She has history of childhood asthma. Related Data Home Medications Medication Instructions Recorded Confirmed amoxicillin-pot clavulanate 1 tab PO BID #19 tab 10/08/20 Previous Rx's Medication Instructions Recorded amoxicillin-pot clavulanate 1 tab PO BID #19 tab 10/08/20 Allergies Allergy/AdvReac Type Severity Reaction Status Date / Time bupropion HCl Allergy Intermediate Hives Verified 10/07/20 23:50 [From Wellbutrin] General KYLAH: 2 Review of Systems Narrative: As documented in HPI otherwise negative as below. Const: no fever, weakness Resp: mild sob CV: no CP, diaphoresis, edema, syncope GI: no abdominal pain, nausea, vomiting, diarrhea Neuro: no headache, numbness, focal weakness, confusion PFSH Medical History Anxiety Hypothyroidism (acquired) Patient was treated for subclinical hypothyroidism during her IVF cycle. Started on 50 mcg of Levoxyl . Low lying placenta nos or without hemorrhage, second trimester 10/14/18: [facility] u/s. Edge of placenta at the os. Repeat u/s @ 28w. 11/27/2018 placenta is no longer low-lying. Residual subchorionic bleed is now 18 mm not covering internal loss. Other antepartum hemorrhage, first trimester 15 weeks 1 day bright red blood x3 episodes. Subchorionic hemorrhage remote from placenta. Nl growth and NUBIA. 11/27/2018. No further bleeding episodes. Patient now off pelvic rest restrictions. depression 02/2019. SI and attempt 04/25/19 with [facility] ED eval. 09/2019. In counseling. On meds. [facility] reproductive medicine. Tubal infertility. IVF.Single egg impla nted. Subchorionic hematoma 12/09/18 resolved ~1cm remaining at time of another light bleeding episode. Vaginal bleeding during Surgical History excision of keloid on chest Ligation of fallopian tube (06/07/16) laparoscopic bilateral salpingectomy. Family History Grandmother Diabetes Social History Smoking/Tobacco Use Status: Never Smoking risk assessment performed?: Yes Alcohol Intake: former Drug use: Never Substance use type: does not use Household members: significant other and children Number of Children: 3 current occupation: Hairdresser Do you feel safe at home: Yes Do you feel safe in your relationship?: Yes Additional Social history: HORTENCIA Cruz. He has 3 children. Female Reproductive History Menstrual Age of Menarche: 11 Duration of menses: 3-5 days control method: permanent sterilization (ivf for this .) History History 5 Para 4 Hx # Term Pregnancies 4 Multiple births 0 Hx # Pregnancies 0 Ectopic pregnancies 0 AB induced 0 Hx Number of Living Children 4 AB spontaneous 1 Past Pregnancies Del. Date GA/Weeks # Outcome Route Wgt Sex Labor Lgth Anesthes ia Location Prov Complic 02/11/19 39 No Successful vaginal 3373.593 g Female Shania Gardner hemorrhage Delivery Date: 02/11/19 PROM; Plasencia balloon placed as cervical ripening agent; hx. of Subchorionic bleeding during ; Coupound presentation of hand under chin.; Post hemorrhage, uterine atony, IM oxytocin, methergine, hemabate and infusion of Tranexamic Acid; D&C in OR, several bleeding sites along cervix, suture ligated Giselle Collier Exam Narrative Exam Narrative: Const: WDWN female in NAD. HEENT: NC/AT. Normal facial exam. OP clear. Upper portion of both ears with mild redness and slight drainage. Canals clear bilaterally. Right TM normal. Left TM is erythematous, bulging, opacified. Eyes: Normal conjunctiva and sclera. Neck: Supple. Trachea midline. Lungs: Normal respiratory effort. Lungs are clear. Cor: RRR without murmur/gallop. Neuro: A+O x 3. Normal speech, mentation, gait. Cranial nerves II - XII grossly intact. No gross motor or sensory deficit. Skin: Warm and dry without rash.
[2020-10-07 23:19] VITALS: BP 138/73; PULSE 115; RESP 18; TEMP 37.1; O2SAT 98
[2020-10-07] MEDS: Amoxicillin 875/Clav. 125 TAB PO (23:47)
--- NOTE | 2020-10-07 23:57 | DI.RAD_ITS ---
EXAM: XR PORTABLE CHEST AP CLINICAL HISTORY: cough. TECHNIQUE: 2D digital imaging was performed. COMPARISON: CR CHEST 2 VIEWS PA,LAT from 09/29/2017 FINDINGS: Heart size is normal. The mediastinum is not widened. Lungs are clear. No infiltrates nor obvious pleural effusions. IMPRESSION: No acute pulmonary findings on this single AP portable view of the chest. DATA REPOSITORY: RADIATION DOSE DELIVERED:
--- NOTE | 2020-10-08 00:05 | DI.VRAD_ITS ---
PROCEDURE INFORMATION: Exam: XR Chest, 1 View Exam date and time: 10/07/2020 11:56 PM Age: 30 years old Clinical indication: Cough TECHNIQUE: Imaging protocol: XR of the chest Views: 1 view. COMPARISON: CR CHEST 2 VIEWS PA,LAT 09/29/2017 11:27 AM FINDINGS: Lungs: Hyperinflation bilaterally. Mild ground-glass type opacification near the right CP angle. Mild ground-glass subsegmental changes in the left mid lung field. Cannot exclude a developing pneumonitis. No segmental or lobar infiltrates. Pleural spaces: No pleural effusions. Heart/Mediastinum: Normal heart size. No hilar fullness or mediastinal widening. Bones/joints: Unremarkable. IMPRESSION: 1. Vague ground-glass type infiltrate changes seen near the right CP angle and in the left mid lung field peripherally. Cannot exclude a mild bilateral pneumonitis. 2. No pleural effusions. 3. Mild bilateral hyperinflation. Dictated and Authenticated by: Bob Conner MD. Ordering:RAY Bull MD
[2020-10-08 00:09] VITALS: BP 147/91; PULSE 66; RESP 18; O2SAT 94
[2020-10-09 11:57] LABS: COVID-19 RT-PCR UVMMC Result Negative (Negative)
--- NOTE | 2020-10-09 15:40 | NUR.NOTE ---
10/09/20 @ 2341 all available contact numbers for patient are invalid. negative covid test results mailed to patient's home address.
== END 2020-10-08 00:10 | disposition home or self-care (01) ==
PROVIDERS: Emergency Provider Emergency Medicine; PCP Physician Assistant Medical
DX: H66.92 Otitis media, unspecified, left ear (principal); J06.9 Acute upper respiratory infection, unspecified; R09.81 Nasal congestion; Z03.818 Encounter for observation for suspected exposure to other biological agents ruled out
CPT/HCPCS: 99283; U0003; 71045

== ENCOUNTER 2020-11-04 11:40 | Emergency (ER) | payer MEDICAID, SELFPAY ==
[2020-11-04 11:42] VITALS: BP 122/81; PULSE 97; RESP 16; TEMP 36.7; O2SAT 98
--- NOTE | 2020-11-04 11:49 | W.ED.GENAD ---
Discharge Plan Disposition Patient Disposition: HOME Condition: Stable Discharge Details Clinical Impression: Opioid withdrawal Primary Care Provider: Yuan Delgado ED Provider: Trung Becerra Discharge Instructions Instructions: Opioid Withdrawal (ED) Additional Instructions: Please stop abusing illicit substances including fentanyl. Please go immediately to [facility] for daily opioid use disorder treatment. Please contact your primary care physician to arrange follow-up. Return to the ER for any worsening or new concerning symptoms. Referrals: [facility] [Outside] Yuan Delgado PA [Primary Care Provider] - Discharge Data Discharge Date/Time-TO BE ENTERED AT DEPARTURE: 11/04/20 11:55 Medical Decision Making 30-year-old female with opioid use disorder, on methadone, continues to use illicit opioids, here in law enforcement custody with complaint of opioid withdrawal, not having received her methadone today. While patient was here in the emergency department being evaluated, law enforcement relinquished custody. I called and spoke with Dr. Plata at [facility] who will be happy to see the patient today for evaluation and treatment. Medical screening exam was performed today. Patient stable for discharge with outpatient follow-up. HPI General Mode of arrival: EMS. Date/Time Provider Initiated Documentation: 11/04/20 11:44. Limitations to Documentation: no limitations. Information obtained by: patient. HPI Narrative: 30-year-old female with opioid use disorder presents with chief complaint of withdrawal. Patient was recently taken into custody of law enforcement after raid on residence regarding illicit drug distribution. Patient arrives in law enforcement custody. Chief complaint is that she feels like she is going into withdrawal and requesting her methadone. She did not get receive methadone today. She last used fentanyl early this a.m. Symptoms are currently moderate. No modifiers. No associated chest pain or fever. Related Data Allergies Allergy/AdvReac Type Severity Reaction Status Date / Time bupropion HCl Allergy Intermediate Hives Verified 11/04/20 11:51 [From Wellbutrin] General KYLAH: 4 Review of Systems All systems reviewed & are unremarkable except as noted in HPI and below Constitutional Constitutional: Reports body ache(s) and Denies fever(s) Respiratory Respiratory: Denies cough PFSH Medical History Anxiety Hypothyroidism (acquired) Patient was treated for subclinical hypothyroidism during her IVF cycle. Started on 50 mcg of Levoxyl . Low lying placenta nos or without hemorrhage, second trimester 10/14/18: [facility] u/s. Edge of placenta at the os. Repeat u/s @ 28w. 11/27/2018 placenta is no longer low-lying. Residual subchorionic bleed is now 18 mm not covering internal loss. Other antepartum hemorrhage, first trimester 15 weeks 1 day bright red blood x3 episodes. Subchorionic hemorrhage remote from placenta. Nl growth and NUBIA. 11/27/2018. No further bleeding episodes. Patient now off pelvic rest restrictions. depression 02/2019. SI and attempt 04/25/19 with [facility] ED eval. 09/2019. In counseling. On meds. [facility]. Tubal infertility. IVF.Single egg implanted. Subchorionic hematoma 12/09/18 resolved ~1cm remaining at time of another light bleeding episode. Vaginal bleeding during Surgical History excision of keloid on chest Ligation of fallopian tube (06/07/16) laparoscopic bilateral salpingectomy. Family History Grandmother Diabetes Social History Smoking/Tobacco Use Status: Never Smoking risk assessment performed?: Yes Alcohol Intake: former Drug use: Daily Substance use type: does not use Details: fentanyl -sniffs Household members: significant other and children Number of Children: 3 current occupation: Hairdresser Do you feel safe at home: Yes Do you feel safe in your relationship?: Yes Additional Social history: FOB- [place]ge. He has 3 children. Female Reproductive History Menstrual Age of Menarche: 11 Duration of menses: 3-5 days control method: permanent sterilization (ivf for this .) History History 5 Para 4 Hx # Term Pregnancies 4 Multiple births 0 Hx # Pregnancies 0 Ectopic pregnancies 0 AB induced 0 Hx Number of Living Children 4 AB spontaneous 1 Past Pregnancies Del. Date GA/Weeks # Outcome Route Wgt Sex Labor Lgth Anesthesia Location Prov Complic 02/11/19 39 No Successful vaginal 3373.593 g Female Shania O'Aaron hemorrhage Delivery Date: 02/11/19 PROM; Plasencia balloon placed as cervical ripening agent; hx. of Subchorionic bleeding during ; Coupound presentation of hand under chin.; Post hemorrhage, uterine atony, IM oxytocin, methergine, hemabate and infusion of Tranexamic Acid; D&C in OR, several bleeding sites along cervix, suture ligated Giselle Collier Exam Const General: cooperative and no acute distress HENMT Mouth: moist mucous membranes Eyes Conjunctivae: normal conjunctivae Sclera: normal sclerae Neck Neck: trachea midline and supple Resp Auscultation: clear to auscultation bilaterally, no rales, no rhonchi and no wheezes Cardio Rate: regular rate and not tachycardic Rhythm: regular rhythm GI Palpation: soft, not firm, no guarding, no masses, not rigid and nontender Skin General skin exam: no rashes or lesions noted Neuro General: patient alert, patient awake, patient oriented x3 and tone normal Extrem General: no edema Psych Appearance: grossly normal Mental Status: mental status grossly normal Speech and Movement: speech and movement normal
== END 2020-11-04 11:55 | disposition home or self-care (01) ==
PROVIDERS: Emergency Provider Student in an Organized Health Care Education/Training Program; PCP Physician Assistant Medical
DX: F11.23 Opioid dependence with withdrawal (principal)
CPT/HCPCS: 99285; 99281

== ENCOUNTER 2020-11-12 23:49 | Emergency (ER) | payer MEDICAID, SELFPAY ==
--- NOTE | 2020-11-12 23:48 | ED.GENADUL_ITS ---
Discharge Plan Disposition Patient Disposition: HOME Condition: Good Discharge Details Clinical Impression: Effects of freezing or excessive cold, Adjustment disorder with depressed mood, Opioid dependence Primary Care Provider: Yuan Delgado ED Provider: Jorgito Dumont Home Meds and New Rx's Prescriptions: Continued methadone 10 mg/mL Solution RF: 0 Discharge Instructions Instructions: Frostbite (ED), Depression (ED) Additional Instructions: It will be important to not allow your feet to become cold over the next few days. Try to stay off them and keep them elevated. Use ibuprofen or acetaminophen for pain. If significant increase in pain, blistering, bluish discoloration return to ED. Otherwise, if continued pain and redness or problems can follow-up with surgery. Contact [facility] for further help with coping/stress/depression. Reach out to detox centers as discussed with mental health. [facility] can be reached at . [facility] can be reached at . Return to ED if feeling unsafe, suicidal, worsening depression. Referrals: [facility] [Provider Group] [facility] [Provider Group] Yuan Delgado PA [Primary Care Provider] - Medical Decision Making At this point patient's feet are rewarmed. Appears more to be contact with frozen ground as opposed to frostbite in the sense of toe involvement. Soles of feet are erythematous but sensate and without blistering. Will need close follow-up. Patient requesting to talk with mental health to reestablish care. She feels safe and denies SI or HI. She is just overwhelmed and not coping well at this point. Mental health consult placed. Patient evaluated by mental health via Zoom call. Patient given resources for detox. Also given number for out reach to mental health. Discussed care for her feet over the weekend including avoiding the cold, elevation, ibuprofen or acetaminophen for pain. Return to ED if increasing pain, blistering, purplish blue discoloration. Otherwise follow-up with surgery next week if not improving. HPI General Mode of arrival: EMS . Date/Time Provider Initiated Documentation: 11/13/20 00:20 . Limitations to Documentation: no limitations . Information obtained by: patient, EMS, RN notes reviewed and old records reviewed . HPI Narrative: Patient presents to ED for mental health evaluation. Patient has been under a great deal of stress as of late. She has lost custody of her children. She was arrested recently and has had court appearances. She was in an argument with her significant other tonight. During this argument she ran outside into the cold with nothing on her feet. She was probably out for 5 or 10 minutes. EMS was contacted. She now has socks and boots on her feet and states they are burning and tingling. She has no other physical complaint other than mild opiate withdrawal. She is on methadone but low-dose at this point in time. She denies headache, fever, cough, shortness of breath, abdominal pain, vomiting, diarrhea. She denies SI or HI. She has been in therapy previously and has been on medication previously but nothing at this time. She reports that her previous private therapist reached out to her a couple days ago but patient has not returned her call. Related Data Home Medications Medication Instructions Recorded Confirmed methadone 11/13/20 Allergies Allergy/AdvReac Type Severity Reaction Status Date / Time bupropion HCl Allergy Intermediate Hives Verified 11/04/20 11:51 [From Wellbutrin] General KYLAH: 4 Review of Systems Narrative: As documented in HPI otherwise negative as below. Const: no fever, chills, weakness Resp: no cough, SOB, pleuritic pain CV: no CP, diaphoresis, edema, syncope GI: no abdominal pain, nausea, vomiting, diarrhea Neuro: no headache, focal weakness, confusion [facility] Medical History Anxiety Hypothyroidism (acquired) Patient was treated for subclinical hypothyroidism during her IVF cycle. Started on 50 mcg of Levoxyl . Surgical History excision of keloid on chest Ligation of fallopian tube (06/07/16) laparoscopic bilateral salpingectomy. Family History Grandmother Diabetes Social History Smoking/Tobacco Use Status: Never Smoking risk assessment performed?: Yes Alcohol Intake: former Drug use: Daily Substance use type: does not use and marijuana Details: fentanyl -sniffs Household members: significant other and children Number of Children: 3 current occupation: Hairdresser Do you feel safe at home: Yes Do you feel safe in your relationship?: Yes Additional Social history: FOB- [place]ge. He has 3 children. Female Reproductive History Menstrual Age of Menarche: 11 Duration of menses: 3-5 days control method: permanent sterilization (ivf for this .) History History 5 Para 4 Hx # Term Pregnancies 4 Multiple births 0 Hx # Pregnancies 0 Ectopic pregnancies 0 AB induced 0 Hx Number of Living Children 4 AB spontaneous 1 Past Pregnancies Del. Date GA/Weeks # Outcome Route Wgt Sex Labor Lgth Anesthes ia Location Prov Complic 02/11/19 39 No Successful vaginal 3373.593 g Female Shania O'Aaron hemorrhage Delivery Date: 02/11/19 PROM; Plasencia balloon placed as cervical ripening agent; hx. of Subchorionic bleeding during ; Coupound presentation of hand under chin.; Post hemorrhage, uterine atony, IM oxytocin, methergine, hemabate and infusion of Tranexamic Acid; D&C in OR, several bleeding sites along cervix, suture ligated Giselle Collier Exam Narrative Exam Narrative: Const: WDWN female in NAD, crying. HEENT: NC/AT. Normal facial exam. Neck: Supple. Trachea midline. Lungs: Normal respiratory effort. Cor: Good distal pulses including DP/PT. Neuro: A+O x 3. Normal speech, mentation. Cranial nerves II - XII grossly intact. No gross motor or sensory deficit. Ext: No C/C/E. Skin: Warm and dry at this time. Bottoms of her feet that had contact with the ground are erythematous. They are soft and cool to touch but not cold. No blisters at this time. Dorsum of feet and arches appear unaffected. Psych: Crying. Depressed mood. Normal speech and thought content. No SI or HI.
[2020-11-12 23:50] VITALS: BP 133/94; PULSE 112; RESP 18; TEMP 36.8; O2SAT 98
[2020-11-13 04:04] VITALS: BP 133/94; PULSE 112; RESP 18; TEMP 36.8; O2SAT 98
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
== END 2020-11-13 02:50 | disposition home or self-care (01) ==
PROVIDERS: Emergency Provider Emergency Medicine; PCP Physician Assistant Medical
DX: T69.8XXA Other specified effects of reduced temperature, initial encounter (principal); M79.671 Pain in right foot; M79.672 Pain in left foot; F43.21 Adjustment disorder with depressed mood; F11.23 Opioid dependence with withdrawal
CPT/HCPCS: 99283

== ENCOUNTER 2021-03-15 09:42 | Emergency (ER) | payer MEDICAID, SELFPAY ==
[2021-03-15] VITALS (17 sets, daily range): BP systolic 101–115; BP diastolic 61–76; PULSE 75–90; RESP 0–23; TEMP 36.6; O2SAT 94–100
--- NOTE | 2021-03-15 09:52 | ED.GENADUL_ITS ---
Discharge Plan Disposition Patient Disposition: HOME Condition: Improving Discharge Details Clinical Impression: Opioid withdrawal Primary Care Provider: Yuan Delgado ED Provider: Noreen Ashford Home Meds and New Rx's Prescriptions: New cephalexin 500 mg tablet 500 mg PO BID 7 Days Qty: 14 RF: 0 clonidine HCl 0.1 mg tablet 0.1 mg PO Q8H PRN (Reason: withdrawal symptoms) 5 Days Qty: 15 RF: 0 ondansetron 4 mg tablet,disintegrating 4 mg PO Q8H PRN (Reason: nausea and vomiting) 4 Days Qty: 7 RF: 0 No Action methadone 10 mg/mL Solution RF: 0 Discharge Instructions Instructions: Opioid Withdrawal (ED) Additional Instructions: Please take medications as directed. You were given the first dose of antibiotic here in the department and a few tablets to go. Please take antibiotic twice daily for the next 7 days. Finish all the antibiotic even after symptoms subside. Follow-up as directed by pipe recovery specialist. Take the clonidine every 8-12 hours as needed for withdrawal symptoms for the next 5 days. Follow up with primary care provider in 3-5 days. Return to ED sooner if any worsening or concerns. Increase oral fluids. Please take Tylenol or Ibuprofen with food every 4-6 hours as needed for pain and swelling. Referrals: Yuan Delgado PA [Primary Care Provider] - Discharge Data Discharge Date/Time-TO BE ENTERED AT DEPARTURE: 03/15/21 11:30 Medical Decision Making 31-year-old female presents to the ER with chief complaint of opioid withdrawal. Patient states that she was snorting Fentanyl last taken at midnight last night. She is complaining of myalgias, nausea, anxiety. She denies any vomiting or diarrhea. She reports that she has been using Fentanyl daily for a long time. She denies any other drugs or alcohol. She denies smoking. She reports taking methadone however [facility] confirmed that she has not been there in over 3 weeks and is no longer an active patient of theirs. Patient has a past medical history of adjustment disorder with depression, hypothyroidism, anxiety, tubal ligation. Patient was seen in ED in November and was referred to rehab facilities. However upon arrival patient states that she has not been to rehab in over 6 months. Patient does express desire for rehab. We will have care management speak with her after she is medically cleared and refer her to the [facility] clinic. 0952: [facility] called to verify patients dosage and last administered medication. They report patient has not been there in over 3 weeks and is no longer active. 1049: Patient reevaluation, pipe recovery specialist at bedside to speak with patient. Patient appears much more comfortable less anxious. I did discuss her urine results with her she does endorse urinary tract symptoms including dysuria. We will plan to discharge patient home with resources, antibiotic and clonidine. 1132: Call made to [facility] left message. Patient is reportedly wanting to go to [facility] rehab. Patient instructed to follow-up as directed by pipe recovery specialist. Was much improved prior to discharge was ambulatory and hemodynamically stable upon discharge from the department. This text was generated using [employer]ation system, please disregard any oddities of phrase or misspellings. HPI General Mode of arrival: ambulatory . Date/Time Provider Initiated Documentation: 03/15/21 09:46 . Limitations to Documentation: no limitations . Information obtained by: patient, RN notes reviewed and old records reviewed . HPI Narrative: 31-year-old female presents to the ER with chief complaint of opioid withdrawal. Patient states that she was snorting Fentanyl last taken at midnight last night. She is complaining of myalgias, nausea, anxiety. She denies any vomiting or diarrhea. She reports that she has been using Fentanyl daily for a long time. She denies any other drugs or alcohol. She denies smoking. She reports taking methadone however [facility] clinic confirmed that she has not been there in over 3 weeks and is no longer an active patient of theirs. Patient has a past medical history of adjustment disorder with depression, hypothyroidism, anxiety, tubal ligation. Patient was seen in ED in November and was referred to rehab facilities. However upon arrival patient states that she has not been to rehab in over 6 months. Patient does express desire for rehab. We will have care management speak with her after she is medically cleared and refer her to the [facility] clinic. Related Data Home Medications Medication Instructions Recorded Confirmed methadone 11/13/20 cephalexin 500 mg PO BID 7 Days #14 tab 03/15/21 clonidine HCl 0.1 mg PO Q8H PRN 5 Days #15 tab 03/15/21 ondansetron 4 mg PO Q8H PRN 4 Days #7 tab 03/15/21 Previous Rx's Medication Instructions Recorded cephalexin 500 mg PO BID 7 Days #14 tab 03/15/21 clonidine HCl 0.1 mg PO Q8H PRN 5 Days #15 tab 03/15/21 ondansetron 4 mg PO Q8H PRN 4 Days #7 tab 03/15/21 Allergies Allergy/AdvReac Type Severity Reaction Status Date / Time bupropion HCl Allergy Intermediate Hives Verified 03/15/21 09:55 [From Wellbutrin] General KYLAH: 2 Review of Systems Narrative: Constitutional: Negative for weight loss, alert and oriented, normal body habitus, appears uncomfortable. Reports myalgias, nausea, anxiety. HEENT: Denies trauma, blurry vision, nasal discharge, sore throat, trouble swallowing. Chest: Denies chest pain, palpitations, irregular rhythm, hypertension. Respiratory: Denies Shortness of breath, cough, hemoptysis. GI: Denies abdominal pain, nausea, vomiting, diarrhea, constipation. : Denies dysuria, hematuria, flank pain, rectal bleeding. Neuro: Denies dizziness, blurry vision, weakness, syncope, headache or facial numbness. Hematologic: Denies easy bruising, intolerance to heat or cold, hair loss. [facility] Medical History Anxiety Hypothyroidism (acquired) Patient was treated for subclinical hypothyroidism during her IVF cycle. Started on 50 mcg of Levoxyl . Surgical History excision of keloid on chest Ligation of fallopian tube (06/07/16) laparoscopic bilateral salpingectomy. Family History Grandmother Diabetes Social History Smoking/Tobacco Use Status: Never Smoking risk assessment performed?: Yes Alcohol Intake: former Drug use: Daily Substance use type: does not use and marijuana Details: fentanyl -sniffs Household members: significant other and children Number of Children: 3 current occupation: Hairdresser Do you feel safe at home: Yes Do you feel safe in your relationship?: Yes Additional Social history: FOHaley- Tyl[place]. He has 3 children. Female Reproductive History Menstrual Age of Menarche: 11 Duration of menses: 3-5 days control method: permanent sterilization (ivf for this .) History History 5 Para 4 Hx # Term Pregnancies 4 Multiple births 0 Hx # Pregnancies 0 Ectopic pregnancies 0 AB induced 0 Hx Number of Living Children 4 AB spontaneous 1 Past Pregnancies Del. Date GA/Weeks # Outcome Route Wgt Sex Labor Lgth Anesthes ia Location Prov Complic 02/11/19 39 No Successful vaginal 3373.593 g Female Shania Alas'Aaron hemorrhage Delivery Date: 02/11/19 PROM; Plasencia balloon placed as cervical ripening agent; hx. of Subchorionic bleeding during ; Coupound presentation of hand under chin.; Post hemorrhage, uterine atony, IM oxytocin, methergine, hemabate and infusion of Tranexamic Acid; D&C in OR, several bleeding sites along cervix, suture ligated Giselle Collier Exam Narrative Exam Narrative: Constitutional: Alert and oriented x3. Appears stated age. Normal body habitus. Head: Normocephalic, no trauma. Eyes: Pupils PERRLA, Red reflex noted, EOM's intact. Eyelids symmetrical without lesions, discharge, or swelling. ENT: Bilateral TM's WNL, External ear normal to inspection, no mastoid TTP, swelling, or erythema, Nasal turbinates WNL, no nasal discharge. Posterior pharynx WNL, no exudate. Chest: RRR, Normal S1, S2, distal pulses intact. Resp: Lungs clear to auscultation bilaterally, no wheezes, rales, or rhonchi. Abdomen: Soft, nontender to palpation all 4 quadrants. Musculoskeletal: Normal gait, 5/5 strength to all four extremities. Skin: No suspicious rashes or lesions. Capillary refill less than 2 sec. Neurologic: Cranial nerves II-XII intact. Alert and oriented x 3. DTR's intact. Hematologic/Lymphatic: No ecchymosis, no lymphadenopathy.
[2021-03-15] MEDS: cloNIDine 0.1 MG TAB PO (10:08)
[2021-03-15] MEDS: Acetaminophen 325 MG TAB 650 MG PO (10:08)
[2021-03-15] MEDS: Ondansetron O.D.T. 4 MG TABEF PO (10:08)
[2021-03-15 10:29] LABS: Bilirubin Negative (Negative); Blood Large (Negative); Clarity Cloudy (Clear); Glucose Negative (Negative); Ketones Negative (Negative); Leukocyte Esterase Moderate (Negative); Nitrite Negative (Negative); Specific Gravity 1.025 (1.005-1.025); pH >= 9.0 (5-8)
[2021-03-15 10:40] LABS: *AMPHETAMINES SCREEN URINE Negative (Negative); *BARBITURATES SCREEN URINE Negative (Negative); *BENZODIAZEPINES SCREEN URINE Negative (Negative); Cannabinoids THC Positive (Negative); Cocaine Screen,Urine Positive (Negative); Epithelial Cells Few HPF (Negative); METHADONE URINE SCREEN Negative (Negative); OPIATES URINE SCREEN Positive (Negative); RBC >50 HPF (0-2); WBC >50 HPF (0-5)
[2021-03-15 10:41] LABS: Bacteria Few HPF (Negative); C & S Indicated? Yes; Casts 0-2 Hyaline LPF (Negative); Crystals Few Amorphous HPF (Negative); Mucus Moderate (Negative)
[2021-03-15 10:42] LABS: Tricyclic Antidepressants Negative (Negative)
[2021-03-15] MEDS: Cephalexin 500 MG CAP, 4 CAPS/BTL PO (11:11)
[2021-03-15] MEDS: Cephalexin 500 MG CAP PO (11:11)
--- NOTE | 2021-03-23 09:43 | NUR.NOTE ---
PT called into ED to ask for refilll on prescription.
== END 2021-03-15 11:30 | disposition home or self-care (01) ==
PROVIDERS: Emergency Provider Registered Nurse Emergency; PCP Physician Assistant Medical
DX: F11.23 Opioid dependence with withdrawal (principal)
CPT/HCPCS: 80307; 81025; 99283; 81003; 81015; 87086

== ENCOUNTER 2021-04-25 07:02 | Emergency (ER) | payer MEDICAID, SELFPAY ==
[2021-04-25 07:10] VITALS: BP 93/52; PULSE 89; RESP 18; TEMP 36.4; O2SAT 98
--- NOTE | 2021-04-25 07:22 | W.ED.GENAD ---
Discharge Plan Disposition Patient Disposition: HOME Condition: Good Discharge Details Clinical Impression: Opioid withdrawal Primary Care Provider: Yuan Delgado ED Provider: Martín Stevens Home Meds and New Rx's Prescriptions: Continued methadone 10 mg/mL Solution RF: 0 Discharge Instructions Instructions: Clonidine (Absorbed through the skin) Additional Instructions: At this time you are having withdrawal from opiates. Please use the clonidine patch it has been given. Keep your skin, do not take it off or use it in any other form. Take it off prior to getting your methadone tomorrow. Your blood pressure can be lowered by this medication, make sure to drink plenty of fluids, stay well-hydrated, avoid getting up quickly or standing quickly. If you notice any worsening of your symptoms, or any new symptoms such as vomiting, diarrhea, fever, chills, shortness of breath, chest pain, numbness, weakness, or fainting , please return immediately to the emergency department for reevaluation. Please follow up with your primary care provider as soon as possible for reassessment and reevaluation. As always, it was a pleasure participating in your medical care today. Referrals: Yuan Delgado PA [Primary Care Provider] - Medical Decision Making 31-year-old female with a past medical history of opiate drug use presents today for withdrawal. Patient states that she stopped using and wants to get back onto methadone. Fortunately when she went to the methadone clinic today they do not have a physician on, and they are only giving the medication. Because of this she was told to come to the ER for further treatment until she can be seen by a physician tomorrow clinic. Aside for shakiness, chills, mild nausea, feelings of withdrawal the patient denies any other complaints. No other modifying factors. She denies any fevers. She denies any cough or shortness of breath. She states this feels like her last withdrawal episode. Patient states in the past and his clonidine patch to much success. This time patient appears stable. We will give a clonidine patch again. Recommended good hydration at home, discussed red flags which to return. I have extensively reviewed the treatment plan and discharge instructions with the patient. I have addressed all patient concerns at this time. The patient was made aware of what symptoms to monitor for that would warrant a return to the emergency department. Discussed the plan with the patient, they demonstrate verbal understanding and agreement with our assessment and plan at this time. The documentation in this chart was dictated using [employer] dictation software. Please excuse any dictation errors. HPI General Date/Time Provider Initiated Documentation: 04/25/21 07:06. HPI Narrative: 31-year-old female with a past medical history of opiate drug use presents today for withdrawal. Patient states that she stopped using and wants to get back onto methadone. Fortunately when she went to the methadone clinic today they do not have a physician on, and they are only giving the medication. Because of this she was told to come to the ER for further treatment until she can be seen by a physician tomorrow clinic. Aside for shakiness, chills, mild nausea, feelings of withdrawal the patient denies any other complaints. No other modifying factors. She denies any fevers. She denies any cough or shortness of breath. She states this feels like her last withdrawal episode. Related Data Home Medications Medication Instructions Recorded Confirmed methadone 11/13/20 Allergies Allergy/AdvReac Type Severity Reaction Status Date / Time bupropion HCl Allergy Intermediate Hives Verified 03/15/21 09:55 [From Wellbutrin] General Stated Complaint: DrugWithdr/MAT KYLAH: 3 Review of Systems All systems reviewed & are unremarkable except as noted in HPI and below PFSH Medical History Anxiety Hypothyroidism (acquired) Patient was treated for subclinical hypothyroidism during her IVF cycle. Started on 50 mcg of Levoxyl . Surgical History excision of keloid on chest Ligation of fallopian tube (06/07/16) laparoscopic bilateral salpingectomy. Family History Grandmother Diabetes Social History Smoking/Tobacco Use Status: Never Smoking risk assessment performed?: Yes Alcohol Intake: former Drug use: Daily Substance use type: does not use and marijuana Details: fentanyl -sniffs Household members: significant other and children Number of Children: 3 current occupation: Hairdresser Do you feel safe at home: Yes Do you feel safe in your relationship?: Yes Additional Social history: FOB- [place]. He has 3 children. Female Reproductive History Menstrual Age of Menarche: 11 Duration of menses: 3-5 days control method: permanent sterilization (ivf for this .) History History 5 Para 4 Hx # Term Pregnancies 4 Multiple births 0 Hx # Pregnancies 0 Ectopic pregnancies 0 AB induced 0 Hx Number of Living Children 4 AB spontaneous 1 Past Pregnancies Del. Date GA/Weeks # Outcome Route Wgt Sex Labor Lgth Anesthesia Location Prov Complic 02/11/19 39 No Successful vaginal 3373.593 g Female Shania Gardner hemorrhage Delivery Date: 02/11/19 PROM; Plasencia balloon placed as cervical ripening agent; hx. of Subchorionic bleeding during ; Coupound presentation of hand under chin.; Post hemorrhage, uterine atony, IM oxytocin, methergine, hemabate and infusion of Tranexamic Acid; D&C in OR, several bleeding sites along cervix, suture ligated Giselle Collier Exam Narrative Exam Narrative: 1.Const: Well-nourished, Well-developed, appearing stated age 2.Eyes: PERRL, no conjunctival injection, and symmetrical lids. 3.ENT: Atraumatic external nose and ears. Moist MM. Neck: Symmetric, trachea midline, No thyromegaly. 4.CVS: +S1/S2, No murmurs or gallops. Peripheral pulses 2+ and equal in all extremities. Brisk capillary refill in all extremities. 5.RESP: Unlabored respiratory effort. Clear to auscultation bilaterally. No wheezes rales or rhonchi 6.GI: Soft, Nontender/Nondistended, No hepatosplenomegaly. No guarding or rebound. 7.MSK: Normocephalic/Atraumatic, Extremities w/o deformity or ttp No cyanosis or clubbing, Normal movement of all extremities 8.Skin: Warm, Dry. No rashes or lesions. 9.Neuro: oracle application consultant II-XII grossly intact. Sensation grossly intact, no focal neurologic deficits. 10.Psych: (AAO) x3. Appropriate mood and affect Course Vital Signs Vital signs: Vital Signs Temperature 36.4 C L 04/25/21 07:10 Pulse 89 04/25/21 07:10 Respiratory Rate 18 04/25/21 07:10 Blood Pressure 93/52 L 04/25/21 07:10 Pulse Oximetry 98 04/25/21 07:10 Temperature 36.4 C L 04/25/21 07:10 Temperature Source Temporal Artery Scan 04/25/21 07:10 Pulse 89 04/25/21 07:10 Respiratory Rate 18 04/25/21 07:10 Respiratory Effort Non-Labored 04/25/21 07:15 Respiratory Pattern Normal 04/25/21 07:16 Blood Pressure 93/52 L 04/25/21 07:10 Pulse Oximetry 98 04/25/21 07:10 Oxygen Delivery Method Room Air 04/25/21 07:10 Oxygen Flow Rate 0 04/25/21 07:10 Pain Level 7 04/25/21 07:10
[2021-04-25] MEDS: cloNIDine 0.1 MG PATCH TD (07:35)
== END 2021-04-25 07:40 | disposition home or self-care (01) ==
LOC: ER 07:37
PROVIDERS: Emergency Provider Student in an Organized Health Care Education/Training Program; PCP Physician Assistant Medical
DX: F11.13 Opioid abuse with withdrawal (principal)
CPT/HCPCS: 99283; 99284

== ENCOUNTER 2021-06-06 15:45 | Emergency (ER) | payer MEDICAID, SELFPAY ==
[2021-06-06 15:47] VITALS: BP 112/69; PULSE 85; RESP 14; TEMP 36.9; O2SAT 100
--- NOTE | 2021-06-06 16:14 | ED.GENADUL_ITS ---
Discharge Plan Disposition Patient Disposition: HOME Condition: Stable Discharge Details Clinical Impression: Opioid withdrawal Primary Care Provider: Yuan Delgado ED Provider: Tariq Kirk Home Meds and New Rx's Prescriptions: New clonidine HCl 0.1 mg tablet 0.1 mg PO TID Qty: 3 RF: 0 Continued methadone 5 mg/5 mL Syringe 60 mg PO DAILY RF: 0 Discharge Instructions Instructions: Opioid Withdrawal (ED) Additional Instructions: Clonidine as directed. Over the counter medications as directed for symptomatic control. Please watch for new or worsening symptoms and return to the ER for any concern. Follow up with [facility] tomorrow as already scheduled Discharge Data Discharge Date/Time-TO BE ENTERED AT DEPARTURE: 06/06/21 16:30 Medical Decision Making 31-year-old female who reports on methadone, 60 mg, relapsed with fentanyl 12 hours ago, scheduled to see the [facility] tomorrow, requesting clonidine to help bridge her until she is seen. She reports feeling anxious, restless, skin crawling, sweats. Clinically she appears well, nontoxic. I do feel as though helping her avoid relapse is reasonable, will give a single dose of clonidine now and give 3 additional tablets and a prescription until she is seen tomorrow. Recommend [id number] medications for other symptomatic control. Patient has no additional questions or concerns and is comfortable with this plan. Standard discharge and return precautions provided This documentation was generated using [employer] dictation system, please disregard any oddities of phrase or misspellings. Medical Records Medical records reviewed: Yes I reviewed the patient's medical records. HPI General Mode of arrival: ambulatory . Date/Time Provider Initiated Documentation: 06/06/21 16:04 . Limitations to Documentation: no limitations . Information obtained by: patient . HPI Narrative: This is a 31-year-old female, past medical history of opiate abuse, anxiety, presents to the ER stating that she is currently taking 60 mg of methadone, stating that she relapsed and last used fentanyl 12 hours ago, scheduled to be seen at the [facility] tomorrow, requesting clonidine which has helped her in the past. She states that she only snorts fentanyl, no IV use whatsoever. Patient states that she is feeling anxious, restless, sweats, feels like her skin is crawling. She denies recent illness or trauma, fever, headache, chest pain, shortness of breath, abdominal pain, nausea, vomiting, change in bowel or bladder function. She has not taken any [id number] medications for her symptoms. She denies any other drug use. Related Data Home Medications Medication Instructions Recorded Confirmed clonidine HCl 0.1 mg PO TID #3 tab 06/06/21 methadone 60 mg PO DAILY 06/06/21 06/06/21 Previous Rx's Medication Instructions Recorded clonidine HCl 0.1 mg PO TID #3 tab 06/06/21 Allergies Allergy/AdvReac Type Severity Reaction Status Date / Time bupropion HCl Allergy Intermediate Hives Verified 06/06/21 16:01 [From Wellbutrin] General Stated Complaint: GenMedical KYLAH: 3 Review of Systems Constitutional Constitutional: Denies fever(s) and Denies headache(s) ENT Ears, Nose, Mouth, and Throat: Denies headache(s) Cardiovascular Cardiovascular: Denies chest pain and Denies dyspnea Respiratory Respiratory: Denies cough and Denies dyspnea Gastrointestinal Gastrointestinal: Denies abdominal pain, Denies nausea and Denies vomiting Musculoskeletal Musculoskeletal: Denies back pain Integumentary/Breasts Skin/Breast: Denies rash Neurologic Neurologic: Denies headache(s) [facility] Medical History Anxiety Hypothyroidism (acquired) Patient was treated for subclinical hypothyroidism during her IVF cycle. Started on 50 mcg of Levoxyl . Surgical History excision of keloid on chest Ligation of fallopian tube (06/07/16) laparoscopic bilateral salpingectomy. Family History Grandmother Diabetes Social History Smoking/Tobacco Use Status: Never Smoking risk assessment performed?: Yes Alcohol Intake: former Drug use: Daily Substance use type: opiates Details: fentanyl - sniffs last use 12 hours ago Household members: significant other and children Number of Children: 3 current occupation: Hairdresser Do you feel safe at home: Yes Do you feel safe in your relationship?: Yes Additional Social history: FOB- [place]. He has 3 children. Female Reproductive History Menstrual Age of Menarche: 11 Duration of menses: 3-5 days control method: permanent sterilization (ivf for this .) History History 5 Para 4 Hx # Term Pregnancies 4 Multiple births 0 Hx # Pregnancies 0 Ectopic pregnancies 0 AB induced 0 Hx Number of Living Children 4 AB spontaneous 1 Past Pregnancies Del. Date GA/Weeks # Outcome Route Wgt Sex Labor Lgth Anesthes ia Location [facility] 02/11/19 39 No Successful vaginal 3373.593 g Female Shania Alas'Aaron hemorrhage Delivery Date: 02/11/19 PROM; Plasencia balloon placed as cervical ripening agent; hx. of Subchorionic bleeding during ; Coupound presentation of hand under chin.; Post hemorrhage, uterine atony, IM oxytocin, methergine, hemabate and infusion of Tranexamic Acid; D&C in OR, several bleeding sites along cervix, suture ligated Giselle Collier Exam Const General: cooperative, healthy appearing, comfortable and no acute distress Orientation: alert, awake and oriented x3 HENMT Head: normal to inspection, normocephalic and atraumatic Face and sinus: normal facial exam Mouth: moist mucous membranes Eyes General: appearance normal, both eyes and all related structures Conjunctivae: conjunctivae normal Neck Neck: normal visual inspection, trachea midline and supple Resp Effort & Inspection: normal respiratory effort and able to speak in complete sentences Auscultation: clear to auscultation bilaterally Cardio Rate: regular rate Rhythm: regular rhythm GI Palpation: soft and nontender Skin General skin exam: no rashes or lesions noted Neuro General: patient alert, patient awake, moves all extremities and no focal motor deficits Cognition: normal cognition Speech: speech normal Gait: normal gait Motor: muscle tone normal throughout Sensory Exam: no sensory deficits noted Psych Appearance: grossly normal Mental Status: mental status grossly normal Course Vital Signs Vital signs: Vital Signs Temperature 36.9 C 06/06/21 15:47 Pulse 85 06/06/21 15:47 Respiratory Rate 14 06/06/21 15:47 Blood Pressure 112/69 06/06/21 15:47 Pulse Oximetry 100 06/06/21 15:47 Temperature 36.9 C 06/06/21 15:47 Temperature Source Skin 06/06/21 15:47 Pulse 85 06/06/21 15:47 Respiratory Rate 14 06/06/21 15:47 Respiratory Effort 06/06/21 16:03 Blood Pressure 112/69 06/06/21 15:47 Blood Pressure Position Sitting 06/06/21 15:47 Pulse Oximetry 100 06/06/21 15:47 Oxygen Delivery Method Room Air 06/06/21 15:47 Oxygen Flow Rate 0 06/06/21 15:47 Pain Level 5 06/06/21 15:47
[2021-06-06] MEDS: cloNIDine 0.1 MG TAB PO (16:26)
== END 2021-06-06 16:30 | disposition home or self-care (01) ==
PROVIDERS: Emergency Provider Physician Assistant; PCP Physician Assistant Medical
DX: F11.13 Opioid abuse with withdrawal (principal); F41.9 Anxiety disorder, unspecified
CPT/HCPCS: 99283

== ENCOUNTER 2021-06-11 22:52 | Emergency (ER) | payer MEDICAID, SELFPAY ==
--- NOTE | 2021-06-11 23:00 | DI.RAD_ITS ---
Exam(s) XR PORTABLE CHEST AP EXAM: XR PORTABLE CHEST AP CLINICAL HISTORY: sob, cough, r/o pneumonia/covid TECHNIQUE: 2D digital imaging was performed of the chest. One image was obtained. An AP view was ob tained. COMPARISON: CR,XR XR PORTABLE CHEST AP from 10/07/2020 FINDINGS: MEDIASTINUM: Normal. HEART: Normal. PULMONARY VASCULATURE: Normal. LUNGS: Clear. PLEURAL SPACE: No pleural effusion or pneumothorax. BONE:Within normal limits for the patient's age. OTHER FINDINGS:Normal. IMPRESSION: No acute pulmonary findings. DATA REPOSITORY: RADIATION DOSE DELIVERED:
[2021-06-11 23:02] VITALS: BP 99/72; PULSE 144; RESP 20; TEMP 36.7; O2SAT 93
--- NOTE | 2021-06-11 23:15 | RT.EKG_ITS ---
APPROVED REPORT Exam: Resting ECG Reason for Exam: sob Patient Location: E HR:119 bpm ECG Measurements Heart Rate 119 AXIS SD 153 P 68 QRSd 82 QRS 50 QT 311 T -59 QTc 438 Conclusion Sinus tachycardia...rate> 99 Probable left atrial enlargement...P >50mS, <-0.10mV V1 Nonspecific T abnormalities, diffuse leads...T <-0.10mV, ant/lat/inf Physician: inus tachycardia, rate 119, no significant ST elevations or depressions, Q wave is present in lead III but it is minimal. Inverted T wave in lead III, no broad terminal S wave. Inverted T w aves in V3 through V6. No prior EKG for comparison. No epsilon wave, delta wave, or evidence of Bru gada syndrome. No diffuse ST elevation
[2021-06-11 23:21] VITALS: PULSE 142; RESP 35; O2SAT 94
--- NOTE | 2021-06-11 23:23 | ED.GENADUL_ITS ---
Discharge Plan Disposition Patient Disposition: HOME Condition: Good Discharge Details Clinical Impression: Bronchitis, Asthma exacerbation Primary Care Provider: Yuan Delgado ED Provider: Martín Stevens Home Meds and New Rx's Prescriptions: New doxycycline hyclate 100 mg capsule 100 mg PO BID 10 Days Qty: 20 RF: 0 prednisone 50 MG tablet 50 mg PO DAILY Qty: 5 RF: 0 Continued methadone 5 mg/5 mL Syringe 70 mg PO DAILY RF: 0 clonidine HCl 0.1 mg tablet 0.1 mg PO TID Qty: 3 RF: 0 Discharge Instructions Instructions: Asthma (ED), Acute Bronchitis (ED) Additional Instructions: At this time your symptoms are concerning for an asthma exacerbation in conjunction with bronchitis or mild pneumonia not seen on x-ray. Please take your albuterol inhaler, 2 puffs every 4-6 hours, please take the prednisone and doxycycline as directed. They have been sent to your pharmacy on file. Please make sure to avoid any dairy or calcium supplements while taking the doxycycline as this will reduce the doxycycline defect. If you notice any worsening of your symptoms, or any new symptoms such as vomiting, diarrhea, fever, chills, shortness of breath, chest pain, numbness, weakness, or fainting , please return immediately to the emergency department for reevaluation. Please follow up with your primary care provider as soon as possible for reassessment and reevaluation. As always, it was a pleasure participating in your medical care today. Referrals: Yuan Delgado PA [Primary Care Provider] - Medical Decision Making 31-year-old female with a past medical history of opioid dependence and illicit drug use, but never an IV drug user, previous asthma that is exercise related, presents today for evaluation of cough and shortness of breath. Patient states that for the last 1 to 2 days she has had a mild cough, with productive clear sputum. Is become notably harder to breathe over the last 12 hours. She admits to chills, congestion, aches and shortness of breath. She has not received her flu or Covid vaccine for this year. She does not have an inhaler at home. She denies any other sick contacts. She denies any long trips, recent surgeries or procedures. She denies any previous history of blood clots. She does admit to using fentanyl this morning, but states that it was snorted. She denies ever using any IV drugs. No other complaints at this time. No other modifying factors. Physical exam demonstrates a tachycardic female, mild shortness of breath, notable wheezes and diminished breath sounds throughout. Differential is highest for Covid, asthma exacerbation, PE is certainly on the differential. Myocarditis is less likely with her lack of IV drug use. Endocarditis is also less likely. We will rehydrate, give breathing treatments and steroids, get a screening D- dimer, chest x-ray, monitor closely and reassess. 2:51 AM Laboratory work-up is returned, minimal white count at 11, minimal left shift, D-dimer negative, electrolytes normal, renal function good, EKG does show some inverted T waves, no evidence of STEMI. Serial troponins are negative, thyroid function normal. Covid test and influenza test negative. Chest x-ray negative for acute process per radiology, patient was given fluid bolus, is feeling better, after 3 duo nebs her breathing has improved, wheeze has improved and lung movements have improved. On reassessment though the patient does have mild crackles on the right. I suspect that the patient does have mild early pneumonia and/or bronchitis. Do feel she would benefit from steroids, albuterol inhaler at home and doxycycline. Symptoms at this time clinically inconsistent with PE. Will give lateral doxycycline here for early treatment, prescription for home use. Discussed red flags which to return. I have extensively reviewed the treatment plan and discharge instructions with the patient. I have addressed all patient concerns at this time. The patient was made aware of what symptoms to monitor for that would warrant a return to the emergency department. Discussed the plan with the patient, they demonstrate verbal understanding and agreement with our assessment and plan at this time. The documentation in this chart was dictated using [employer] dictation software. Please excuse any dictation errors. EKG 00: 45 Sinus tachycardia, rate 119, no significant ST elevations or depressions, Q wave is present in lead III but it is minimal. Inverted T wave in lead III, no broad terminal S wave. Inverted T waves in V3 through V6. No prior EKG for comparison. No epsilon wave, delta wave, or evidence of Brugada syndrome. No diffuse ST elevation. FINDINGS: Lungs: Chronic interstitial prominence, grossly stable. No consolidation. Pleural spaces: No pleural effusion. No pneumothorax. Heart/Mediastinum: Grossly stable. Bones/joints: Unremarkable. IMPRESSION: No acute findings. Thank you for allowing us to participate in the care of your patient. Dictated and Authenticated by: Venkat Clay MD 06/12/2021 1:35 AM Eastern Time ([place] & [place]) HPI General Date/Time Provider Initiated Documentation: 06/11/21 22:54 . HPI Narrative: 31-year-old female with a past medical history of opioid dependence and illicit drug use, but never an IV drug user, previous asthma that is exercise related, presents today for evaluation of cough and shortness of breath. Patient states that for the last 1 to 2 days she has had a mild cough, with productive clear sputum. Is become notably harder to breathe over the last 12 hours. She admits to chills, congestion, aches and shortness of breath. She has not received her flu or Covid vaccine for this year. She does not have an inhaler at home. She denies any other sick contacts. She denies any long trips, recent surgeries or procedures. She denies any previous history of blood clots. She does admit to using fentanyl this morning, but states that it was snorted. She denies ever using any IV drugs. No other complaints at this time. No other modifying factors. Related Data Home Medications Medication Instructions Recorded Confirmed clonidine HCl 0.1 mg PO TID #3 tab 06/06/21 06/11/21 methadone 70 mg PO DAILY 06/06/21 06/11/21 doxycycline hyclate 100 mg PO BID 10 Days #20 cap 06/12/21 prednisone 50 mg PO DAILY #5 tab 06/12/21 Previous Rx's Medication Instructions Recorded clonidine HCl 0.1 mg PO TID #3 tab 06/06/21 doxycycline hyclate 100 mg PO BID 10 Days #20 cap 06/12/21 prednisone 50 mg PO DAILY #5 tab 06/12/21 Allergies Allergy/AdvReac Type Severity Reaction Status Date / Time bupropion HCl Allergy Intermediate Hives Verified 06/06/21 16:01 [From Wellbutrin] General Stated Complaint: SOB KYLAH: 2 Review of Systems All systems reviewed & are unremarkable except as noted in HPI and below [facility] Medical History Anxiety Hypothyroidism (acquired) Patient was treated for subclinical hypothyroidism during her IVF cycle. Started on 50 mcg of Levoxyl . Surgical History excision of keloid on chest Ligation of fallopian tube (06/07/16) laparoscopic bilateral salpingectomy. Family History Grandmother Diabetes Social History Smoking/Tobacco Use Status: Never Smoking risk assessment performed?: Yes Alcohol Intake: former Drug use: Daily Substance use type: opiates Details: fentanyl - sniff used today Household members: significant other and children Number of Children: 3 current occupation: Hairdresser Do you feel safe at home: Yes Do you feel safe in your relationship?: Yes Additional Social history: FOB- [place]. He has 3 children. Female Reproductive History Menstrual Age of Menarche: 11 Duration of menses: 3-5 days control method: permanent sterilization (ivf for this .) History History 5 Para 4 Hx # Term Pregnancies 4 Multiple births 0 Hx # Pregnancies 0 Ectopic pregnancies 0 AB induced 0 Hx Number of Living Children 4 AB spontaneous 1 Past Pregnancies Del. Date GA/Weeks # Outcome Route Wgt Sex Labor Lgth Anesthes ia Location Prov Complic 02/11/19 39 No Successful vaginal 3373.593 g Female Shania Gardner hemorrhage Delivery Date: 02/11/19 PROM; Plasencia balloon placed as cervical ripening agent; hx. of Subchorionic bleeding during ; Coupound presentation of hand under chin.; Post hemorrhage, uterine atony, IM oxytocin, methergine, hemabate and infusion of Tranexamic Acid; D&C in OR, several bleeding sites along cervix, suture ligated Giselle Collier Exam Narrative Exam Narrative: 1.Const: Well-nourished, Well-developed, appearing stated age 2.Eyes: PERRL, no conjunctival injection, and symmetrical lids. 3.ENT: Atraumatic external nose and ears. Moist MM. Neck: Symmetric, trachea midline, No thyromegaly. 4.CVS: +S1/S2, No murmurs or gallops. Peripheral pulses 2+ and equal in all extremities. Brisk capillary refill in all extremities. 5.RESP: Wheezes throughout, diminished breath sounds throughout, no rales or rhonchi. 6.GI: Soft, Nontender/Nondistended, No hepatosplenomegaly. No guarding or rebound. 7.MSK: Normocephalic/Atraumatic, Extremities w/o deformity or ttp No cyanosis or clubbing, Normal movement of all extremities, no calf tenderness 8.Skin: Warm, Dry. No rashes or lesions. 9.Neuro: senior account representative II-XII grossly intact. Sensation grossly intact, no focal n eurologic deficits. 10.Psych: (AAO) x3. Appropriate mood and affect Course Vital Signs Vital signs: Vital Signs Temperature 36.7 C 06/11/21 23:02 Pulse 144 H 06/11/21 23:02 Respiratory Rate 20 06/11/21 23:02 Blood Pressure 99/72 L 06/11/21 23:02 Pulse Oximetry 93 06/11/21 23:02 Temperature 36.7 C 06/11/21 23:02 Temperature Source Temporal Artery Scan 06/11/21 23:02 Pulse 144 H 06/11/21 23:02 Respiratory Rate 20 06/11/21 23:02 Respiratory Effort 06/11/21 23:12 Blood Pressure 99/72 L 06/11/21 23:02 Blood Pressure Position Sitting 06/11/21 23:02 Pulse Oximetry 93 06/11/21 23:02 Oxygen Delivery Method Room Air 06/11/21 23:02 Oxygen Flow Rate 0 06/11/21 23:02
[2021-06-11 23:30] VITALS: PULSE 124; RESP 16; O2SAT 94
[2021-06-11 23:40] VITALS: PULSE 124; RESP 20; O2SAT 100
[2021-06-11 23:44] LABS: Source Nasal/Nares
[2021-06-11 23:46] LABS: Abs Immature Grans 0.03 10^3/uL (0.0-0.06); Absolute Eosinophil Count 0.19 10^3/uL (0.0-0.7); Absolute Lymphocyte Count 1.11 10^3/uL (1.2-3.4); Absolute Neutrophil Count 9.26 10^3/uL (1.2-6.7); Basophils % 0.3; Eosinophils % 1.7; HCT 40.1 % (36.0-46.0); Immature Grans % 0.3; Lymphocytes % 9.7; MCH 30.1 pg (27.0-33.0); MCHC 32.4 % (32.0-36.0); MCV 92.8 fL (80-95); Nucleated RBC 0 %; Platelet Count 284 10^3/uL (130-400); RBC 4.32 10^6/uL (3.93-5.22); RDW 12.9 % (11.7-14.6); RDW-SD 44.3 fL; WBC 11.43 10^3/uL (4.4-10.8)
[2021-06-11] MEDS: Albuterol/Ipratropium 3 ML UPD VIAL 6 ML UPD (23:46)
[2021-06-11] MEDS: Normal Saline 1,000 ML 1000 ML IV (23:46)
[2021-06-11] MEDS: methylPREDNISolone SUCC 125 MG VIAL IVP (23:46)
[2021-06-11 23:47] LABS: Absolute Basophil Count 0.03 10^3/uL (0.0-0.2)
[2021-06-11 23:50] VITALS: PULSE 143; RESP 18; O2SAT 100
[2021-06-12] VITALS (22 sets, daily range): BP systolic 120–122; BP diastolic 73–78; PULSE 110–165; RESP 12–26; TEMP 36.5; O2SAT 92–100
[2021-06-12 00:16] LABS: ALT 17 U/L (14-59); AST 20 U/L (15-37); Albumin 3.8 g/dL (3.4-5.0); Alkaline Phosphatase 64 U/L (46-116); Anion Gap 7.1 mmol/L (3-11); BUN 11 mg/dL (7-18); Bilirubin, Total 0.2 mg/dL (0.2-1.0); CO2 28.9 mmol/L (21.0-32.0); Calcium 9.1 mg/dL (8.5-10.1); Chloride 105 mmol/L (98-107); D-Dimer 308 ng/mlFEU (<500); Glucose 107 mg/dL (74-106); Potassium 3.4 mmol/L (3.5-5.1); Sodium 141 mmol/L (136-145); Total Protein 8.1 g/dL (6.4-8.2)
[2021-06-12 00:41] LABS: COVID-19 PCR Negative (Negative)
[2021-06-12] MEDS: Albuterol/Ipratropium 3 ML UPD VIAL 6 ML UPD (01:13)
[2021-06-12] MEDS: Ketorolac 15 MG/ML VIAL IVP (01:13)
[2021-06-12 01:28] LABS: Troponin I < 0.05 ng/mL (<0.06)
--- NOTE | 2021-06-12 01:35 | DI.VRAD_ITS ---
PROCEDURE INFORMATION: Exam: XR Chest Exam date and time: 06/11/2021 11:05 PM Age: 31 years old Clinical indication: Cough and fever and shortness of breath; Patient HX: Cough, SOB; Additional info: R/O pneumonia/covid TECHNIQUE: Imaging protocol: XR of the chest. Views: 1 view. COMPARISON: CR XR PORTABLE CHEST AP 10/07/2020 11:41 PM FINDINGS: Lungs: Chronic interstitial prominence, grossly stable. No consolidation. Pleural spaces: No pleural effusion. No pneumothorax. Heart/Mediastinum: Grossly stable. Bones/joints: Unremarkable. IMPRESSION: No acute findings. Dictated and Authenticated by: Venkat Clay MD. Ordering:ALISIA Resendiz MD
[2021-06-12 02:16] LABS: Troponin I < 0.05 ng/mL (<0.06)
[2021-06-12] MEDS: Albuterol HFA 8 GM 60 PUFF INH IH (02:54)
[2021-06-12] MEDS: Doxycycline Hyclate 100 MG, 2 CAPS/BTL PO (02:54)
== END 2021-06-12 02:55 | disposition home or self-care (01) ==
PROVIDERS: Emergency Provider Student in an Organized Health Care Education/Training Program; PCP Physician Assistant Medical
DX: J20.9 Acute bronchitis, unspecified (principal); J45.901 Unspecified asthma with (acute) exacerbation
CPT/HCPCS: 80053; 81025; 87449; 87635; 93005; 94640; 96361; 96374; 96375; 99284; 71045; 84443; 84484; 85025; 85379; 93010; J1885; J2930; J7620

== ENCOUNTER 2025-06-02 18:06 | Emergency (ER) | payer MEDICAID, SELFPAY ==
[2025-06-02 18:14] VITALS: BP 133/90; PULSE 72; RESP 18; TEMP 36.8; O2SAT 95
[2025-06-02 18:28] VITALS: BP 133/90; PULSE 72; RESP 18; TEMP 36.8; O2SAT 95
[2025-06-02 19:16] LABS: Glucose Negative (Negative)
[2025-06-02 19:25] LABS: C & S Indicated? No
--- NOTE | 2025-06-02 19:35 | ED.GENADUL_ITS ---
Discharge Plan Disposition Patient Disposition: Home Condition: Stable Discharge Details Clinical Impression: Frequent urination, Trichomonal vaginitis Primary Care Provider: Yuan Delgado ED Provider: Nikia Rosario Home Meds and New Rx's Prescriptions: New metronidazole 500 mg tablet 500 mg PO BID 6 Days Qty: 12 0RF No Action prednisone 50 MG tablet 50 mg PO DAILY Qty: 5 0RF methadone 5 mg/5 mL Syringe 70 mg PO DAILY clonidine HCl 0.1 mg tablet 0.1 mg PO TID Qty: 3 0RF Discharge Instructions Instructions: Trichomoniasis (DC) Additional Instructions: You were seen in the emergency department today for evaluation of frequent urination. In our department a full physical examination performed, had reassuring laboratory studies, but your urinalysis did show trichomonas, a vaginal infection that can cause irritation. While this may not be the exact cause of your frequent urination I recommend that we treat it. You will take the antibiotic for the next 7 days, please take all the medication prescribed even if feeling better. Do not drink alcohol while taking this medication as it will make you feel very sick. Please follow-up with your primary care provider in the next few days to discuss this visit and any symptoms that change, worsen, or persist. Thank you for allowing us to be part of your care. HPI General Mode of arrival: ambulatory . Date/Time Provider Initiated Documentation: 06/02/25 18:56 . Limitations to Documentation: no limitations . Information obtained by: patient and old records reviewed . HPI Narrative: This is a 35-year-old female patient with a history of opioid use disorder in remission on methadone maintenance therapy, history of hypothyroidism, presenting for evaluation of urinary frequency. The patient reports that she has been experiencing this for several weeks, states that she does not have dysuria or hematuria, but her increased nocturnal urinary frequency is becoming very bothersome. She has a PCP visit but not till the end of July, has never been evaluated for this condition. She wanted to make sure that she did not have something concerning like diabetes or kidney problems. States that she has had UTIs in the past and this feels different than that. The patient reports that she is not currently sexually active, does have some vaginal discharge that has been fairly stable since her last , though she has noted a change in the odor. No fevers or chills, nausea or vomiting, changes in bowel habits, significant abdominal pain. Related Data Home Medications ?Medication ?Instructions ?Recorded ?Confirmed clonidine HCl 0.1 mg tablet 0.1 mg PO TID #3 tabs 05/1206/11/21 methadone 5 mg/5 mL oral syringe 70 mg PO DAILY 06/11/21 (FOR ORAL USE ONLY) prednisone 50 mg tablet 50 mg PO DAILY #5 tabs 06/12 metronidazole 500 mg tablet 500 mg PO BID 6 days #12 t abs 06/02/25 Previous Rx's ?Medication ?Instructions ?Recorded clonidine HCl 0.1 mg tablet 0.1 mg PO TID #3 tabs 05/12 03/30 prednisone 50 mg tablet 50 mg PO DAILY #5 tabs 06/12 metronidazole 500 mg tablet 500 mg PO BID 6 days #12 t abs 06/02/25 Allergies Allergy/AdvReac Type Severity Reaction Status Date / Time bupropion HCl (From Allergy Intermediate Hives Verified 06/02/25 18:19 Wellbutrin) General Stated Complaint: Urinary KYLAH: 4 Exam Narrative Exam Narrative: Gen: Awake and alert, in no apparent distress HEENT: Non-icteric sclera Neck: Supple Lungs: No apparent respiratory distress, normal respiratory effort. CV: Appears well perfused, heart with regular rate and rhythm, strong distal pulses Abdomen: Non-distended, abdomen soft, nontender to palpation without rigidity, rebound, guarding MSK: Moves 4 extremities without apparent limitation in ROM Skin: Visualized skin without rashes, cyanosis. Neuro: Normal Gait, no obvious focal deficits or facial asymmetry. Speaks in full, clear sentences. Psych: Appropriate for situation. Course Vital Signs Vital signs: Vital Signs Temperature 36.8 C 06/02/25 18:14 Pulse 72 06/02/25 18:14 Respiratory Rate 18 06/02/25 18:14 Blood Pressure 133/90 06/02/25 18:14 Pulse Oximetry 95 06/02/25 18:14 Temperature 36.8 C 06/02/25 18:28 Temperature Source Oral 06/02/25 18:28 Pulse 72 06/02/25 18:28 Respiratory Rate 18 06/02/25 18:28 Blood Pressure 133/90 06/02/25 18:28 Pulse Oximetry 95 06/02/25 18:28 Oxygen Delivery Method Room Air 06/02/25 18:28 Oxygen Flow Rate 0 09/23/25 18:28 Lab/Test Results Lab/Test Results: Laboratory Tests Range/Units 06/02/25 18:21 Urine Color (Yellow) Yellow Urine Clarity (Clear) Clear Urine pH (5-8) 7.0 Ur Specific [place] (1.005-1.025) 1.015 Urine Protein (Neg-Trace) mg/dL Negative Urine Ketones (Negative) mg/dL Negative Urine Blood (Negative) Trace-intact H Urine Nitrite (Negative) Negative Urine Bilirubin (Negative) Negative Urine Urobilinogen (Up to 0.2) mg/dL 0.2 Ur Leukocyte Esterase (Negative) Moderate H Urine RBC (0-2) HPF 10-20 H Urine WBC (0-5) HPF 10-20 H Ur Epithelial Cells (Negative) HPF Moderate Urine Crystals (Negative) HPF Negative Urine Bacteria (Negative) HPF Many Urine Casts (Negative) LPF Negative Urine Mucus (Negative) Negative Urine Other (Negative) Rare Trichomonas Ur Culture Indicated? No Urine Glucose (Negative) mg/dL Negative POC- Test(urine) Negative Medical Decision Making This is a 35-year-old female patient presenting for evaluation of urinary frequency. Differential includes but is not limited to UTI, hematuria, no flank pain to suggest renal stone. Considered kidney injury, metabolic derangement, diabetes, no trauma to suggest SIDH. Considered interstitial cystitis, though this certainly is not a diagnosis that can be made definitively in the emergency department. Will obtain a urinalysis, and basic labs to include CBC, CMP, magnesium, and A1c. The patient is status post tubal ligation, does not have vaginal bleeding and has no abdominal pain, making my concern for ectopic and other related concerns highly unlikely. -Initial urinalysis unfortunately contaminated, a repeat was obtained which continues to have numerous epithelial cells. In the absence of dysuria and hematuria we will hold on empiric antibiosis. Incidentally, note is made of trichomonas on her urinalysis, and trichomoniasis is certainly something that could be considered an opportunity for treatment, though I suspect that this is unlikely to be the entire cause of her urinary frequency. I independently interpreted the laboratory studies, which show no significant leukocytosis, anemia, or thrombocytopenia. The chemistry panel is without evidence of electrolyte abnormality, kidney dysfunction, or liver injury. A1c 5.1%. I will provide her with a course of oral metronidazole, counseled her on avoidance of alcohol. She does not have an active sexual partner that will require partner treatment. I recommended that the patient follow-up with her primary care provider in the next few days, and if her symptoms persist that she request a referral to urology. At this time, the patient has had a full medical evaluation and is safe for discharge to home. They are hemodynamically stable, ambulatory, and tolerating PO. They are understanding of the follow-up plan and return precautions. They left our facility without incident. Nikia Rosario MD [facility], [facility] All Active Problems (Updated 06/02/25 @ 21:03 by Nikia Rosario MD) Trichomonal vaginitis (Acute) Frequent urination (Acute) Asthma exacerbation (Acute) Bronchitis (Acute) Opioid withdrawal (Acute) Opioid dependence (Acute) Adjustment disorder with depressed mood (Acute) Effects of freezing or excessive cold (Acute) Hypothyroidism (acquired) (Acute) Patient was treated for subclinical hypothyroidism during her IVF cycle. Started on 50 mcg of Levoxyl . Medical History Anxiety Hypothyroidism (acquired) Patient was treated for subclinical hypothyroidism during her IVF cycle. Started on 50 mcg of Levoxyl . Surgical History excision of keloid on chest Ligation of fallopian tube (06/07/16) laparoscopic bilateral salpingectomy. Family History Grandmother Diabetes Social History Smoking/Tobacco Use Status: Never Smoking risk assessment performed?: Yes Alcohol Intake: former Drug use: Current Sobriety Substance use type: does not use and opiates Details: fentanyl - sniff used today Household members: significant other and children Number of Children: 3 current occupation: Hairdresser Do you feel safe at home: Yes Do you feel safe in your relationship?: Yes Additional Social history: FOB- [place]. He has 3 children. Female Reproductive History Menstrual Age of Menarche: 11 Duration of menses: 3-5 days control method: permanent sterilization (ivf for this .) History History 5 Para 4 Hx # Term Pregnancies 4 Multiple births 0 Hx # Pregnancies 0 Ectopic pregnancies 0 AB induced 0 Hx Number of Living Children 4 AB spontaneous 1 Past Pregnancies Del. Date GA/Weeks # Preg Succ Route Wgt Sex Labor Lgth Anesth esia Location [facility] 02/11/19 39 No vaginal 3373.593 g Female Barb Gardner hemorrhage Delivery Date: 02/11/19 Last Updated by: Giselle Cabral LPN PROM; Plasencia balloon placed as cervical ripening agent; hx. of Subchorionic bleeding during ; Coupound presentation of hand under chin.; Post hemorrhage, uterine atony, IM oxytocin, methergine, hemabate and infusion of Tranexamic Acid; D&C in OR, several bleeding sites along cervix, suture ligated
[2025-06-02 19:55] LABS: Glucose Negative (Negative)
[2025-06-02 19:57] LABS: Abs Immature Grans 0.00 10^3/uL (0.0-0.06); HCT 35.2 % (36.0-46.0); HGB 11.5 g/dL (11.2-15.7); Immature Grans % 0.0 %; MCH 30.0 pg (27.0-33.0); MCHC 32.7 % (32.0-36.0); MCV 92 fL (80-95); MPV 9.8 fL (8.0-11.0); Platelet Count 265 10^3/uL (130-400); RBC 3.83 10^6/uL (3.93-5.22); RDW 13.4 % (11.7-14.6); RDW-SD 45.3 fL; WBC 6.57 10^3/uL (4.4-10.8)
[2025-06-02 20:05] LABS: C & S Indicated? No
[2025-06-02 20:20] LABS: ALT 21 U/L (14-59); AST 16 U/L (15-37); Albumin 3.8 g/dL (3.4-5.0); Alkaline Phosphatase 68 U/L (46-116); Anion Gap 5.8 mmol/L (3-11); BUN 14 mg/dL (7-18); Bilirubin, Total 0.2 mg/dL (0.2-1.0); CO2 33.2 mmol/L (21.0-32.0); Calcium 9.3 mg/dL (8.5-10.1); Chloride 102 mmol/L (98-107); Estimated GFR 97.26 (mL/min/1.73m2); Glucose 74 mg/dL (74-106); Magnesium 2.1 mg/dL (1.8-2.4); Potassium 3.7 mmol/L (3.5-5.1); Sodium 141 mmol/L (136-145); Total Protein 7.7 g/dL (6.4-8.2)
[2025-06-02 21:08] LABS: Hemoglobin A1C 5.1 % (<5.7)
[2025-06-02] MEDS: metroNIDAZOLE 500 MG TAB, 3 TABS/BTL PO (21:22)
== END 2025-06-02 21:29 | disposition home or self-care (01) ==
PROVIDERS: Physician Assistant; Emergency Provider Emergency Medicine; PCP Physician Assistant Medical
DX: A59.01 Trichomonal vulvovaginitis (principal); F11.20 Opioid dependence, uncomplicated; E03.9 Hypothyroidism, unspecified
CPT/HCPCS: 36415; 80053; 81025; 99283; 81003; 81015; 83036; 83735; 85025